=== PATIENT | male | born 1960 | race Caucasian/White ===

== ENCOUNTER 2017-06-19 10:27 | Inpatient (IN) ==
[2017-06-19] MEDS ORDERED: methylPREDNISolone 125 MG/2 ML VIAL IVP ONE (10:36)
--- NOTE | 2017-06-19 11:00 | Emergency Department Note ---
Disposition Clinical Impression: Community acquired pneumonia Qualifiers: Laterality: unspecified laterality Qualified Code(s): J18.9 - Pneumonia, unspecified organism Disposition: Admitted As Inpatient Condition: Fair SOB HPI - General Chief Complaint: ED Shortness of Breath/Dyspnea Stated Complaint: ERWIN Time Seen by Provider: 06/19/17 10:31 Source: patient, family Mode of arrival: private vehicle Limitations: no limitations Nursing Notes Reviewed: Yes Vital Signs Reviewed: Yes - History of Present Illness Pt Subjective Complaint: shortness of breath, cough Onset (ago): month(s) (2) Context: recent illness Severity: moderate, severe Consistency/Duration: other ("The trouble breathing is now much better") Improves with: oxygen Worsens with: lying flat, coughing Known history of: diabetes, other (Quit smoking in February) Associated symptoms: Reports: denies other symptoms, fever, cough, sputum production ("a ton"), orthopnea. Denies: chest pain, pain with inspiration, wheezing, lower extremity pain, polyuria, polydipsia, parasthesias, palpitations , hemoptysis, diaphoresis, nausea/vomiting, syncope, abdominal pain, rash, sense of impending doom Treatment prior to arrival: other (ABX - two different types; each for 10 days, no change in symptoms) Cough present: Yes Cough Description: Voluntary, Involuntary, Productive, Hacking, Bronchospastic, Hoarse Cough Frequency: Persistent Sputum production: Yes Sputum Amount: Copious Sputum Color: Yellow, Brown - Related Data Home oxygen amount: none Allergies Allergy/AdvReac Type Severity Reaction Status Date / Time No Known Allergies Allergy Verified 06/19/17 11:04 All systems ED: reviewed and negative except as stated. Review of Systems: As Per HPI Constitutional: Reports: fever. Denies: chills, weakness, weight change, night sweats Eyes: Denies: eye pain, eye discharge, vision change, other ENT ED: Denies: ear pain, throat pain, congestion, dysphagia Cardiovascular: Reports: dyspnea on exertion, orthopnea. Denies: chest pain, palpitations, edema, syncope Respiratory: Reports: as per HPI, cough, dyspnea, sputum production. Denies: wheezes, hemoptysis, stridor Gastrointestinal: Denies: abdominal pain, nausea, vomiting, diarrhea Genitourinary: Denies: dysuria Musculoskeletal: Denies: back pain, neck pain, joint swelling, arthralgia, myalgia Neurological: Reports: paresthesias ('Burning pain in feet" (Chronic)). Denies : headache, weakness, numbness Psychiatric: Reports: anxiety ("Just today when I couldn't catch my breath") Endocrine: Reports: fatigue Hematological/Lymphatic: Denies: easy bleeding, easy bruising, lymphadenopathy Allergic/Immunologic: Denies: facial swelling, urticaria, itchy eyes Past Medical History - Past Medical History Attestation: Yes The following information was validated with the patient. Source: patient, obtained from family Medical history: Reports: diabetes, hypertension Surgical history: Reports: non-contributory - Social History Smoking Status: Former smoker Alcohol use: Reports: none (Quit in February) Drug use: Reports: none Physical Exam - General Limitations: no limitations General appearance: alert, in no apparent distress, anxious - Head Head exam: atraumatic, normocephalic, normal inspection - Eye Eye exam: Present: normal appearance, PERRL. Absent: scleral icterus, conjunctival injection, periorbital swelling - ENT ENT exam: normal exam, mucous membranes moist - Neck Neck exam: Present: normal inspection, full ROM, trachea midline. Absent: tenderness, meningismus - Chest Chest inspection: Present: normal inspection, symmetric chest wall rise. Absent : tenderness - Respiratory Respiratory exam: Present: normal lung sounds bilaterally. Absent: respiratory distress, wheezes, stridor, accessory muscle use, prolonged expiratory phase - Cardiovascular Cardiovascular exam: Present: normal rhythm, tachycardia, normal heart sounds. Absent: systolic murmur, diastolic murmur - Abdominal Exam Abdominal exam: Present: soft, Non-Tender. Absent: distention, guarding, rebound, mass, bruit, pulsatile mass - Extremities Exam Extremities exam: Present: normal inspection, normal capillary refill. Absent: pedal edema - Back Exam Back exam: Present: normal inspection - Neurological Exam Neurological exam: Present: alert, oriented X3, CN II-XII intact, normal gait. Absent: motor sensory deficit - Psychiatric Psychiatric exam: Present: normal affect, normal mood - Skin Skin exam: Present: warm, dry, intact, normal color Course Course Narrative: Patient presents for evaluation of an acute onset of dyspnea while having a coughing spell this morning. He states that he has had a cough with copious amounts of sputum production episodic shortness of breath with exertion, intermittent fever and chills for about two months. This morning he had a coughing spell and felt like he could not stop coughing and could not catch his breath. This is what prompted his visit to the ER. He has been seen by his primary care provider twice for this. He was put on antibiotics twice. Each was a 10 day course of a different antibiotic. He has had no improvement. He is afebrile, tachypneic and tachycardic. He is satting 100% on oxygen. He is currently on nonrebreather and most likely can be weaned to nasal cannula. However, he states that he is too anxious to try that at this point. The monitor shows sinus tachycardia, rate of 139. IV access was obtained. IV fluids and Tylenol have been ordered for the fever. Labs, EKG and x-rays have been ordered. Case was discussed with Dr. Abraham. As it is shift change, he will take over care of this patient.
[2017-06-19] MEDS ORDERED: 0.9 % Sodium Chloride 1,000 ML IVC ONE ×2 (11:12→13:45)
[2017-06-19 11:25] LABS: Hematocrit 29.7 % (37.5-50.1); Mean Corpuscular HGB Conc 30.3 g/dL (31.6-35.5); Mean Corpuscular Hemoglobin 26.5 pg (28.0-33.3); Mean Corpuscular Volume 87.4 fL (83.0-100.0); Mean Platelet Volume 8.3 fL (9.4-12.4); Platelet Count 610 K/mcL (140-400); Red Cell Distribution Width 17.1 % (11.5-14.5)
[2017-06-19 11:28] LABS: INR 1.2; Prothrombin Time 13.3 Seconds (9.4-12.1)
[2017-06-19 11:31] LABS: Activated Partial Thrombo Time 24.5 Seconds (26.0-36.0)
[2017-06-19] MEDS ORDERED: Ipratropium/Albuterol Neb 3 ML ONE (11:33)
[2017-06-19] MEDS ORDERED: Ipratropium/Albuterol Neb 3 ML IH ONE (11:34)
[2017-06-19] MEDS ORDERED: Albuterol 2.5 MG/3 ML NEBULIZER IH ONE (11:34)
[2017-06-19] MEDS ORDERED: Isovue-370 500 ML INFUS..BTL IV ONE (11:35)
[2017-06-19 11:44] LABS: Alanine Aminotransferase 13 Units/L (7-52); Albumin 2.9 g/dL (3.5-5.7); Albumin/Globulin Ratio 0.5 (1.1-2.2); Alkaline Phosphatase 75 Units/L (34-104); Aspartate Amino Transferase 17 Units/L (13-39); BUN/Creatinine Ratio 28 (6-26); Bilirubin,Indirect 0.3 mg/dL (0.0-1.2); Bilirubin,Total 0.3 mg/dL (0.3-1.0); Blood Urea Nitrogen 14 mg/dL (6-20); Calcium 9.2 mg/dL (8.6-10.3); Carbon Dioxide 23 mEq/L (23-29); Chloride 96 mEq/L (98-107); Globulin 5.8 g/dL (2.4-3.5); Glucose 204 mg/dL (70-105); Osmolality,Calculated 278 (280-300); Potassium 4.8 mEq/L (3.5-5.1); Sodium 131 mEq/L (136-145); Total Protein 8.7 g/dL (6.4-8.9); eGFR For African Americans > 60 (> 60); eGFR For Non-African Americans > 60 (> 60)
[2017-06-19 12:08] LABS: Eosinophils # 0.2 K/mcL (0.0-0.6); Lymphocytes # 2.3 K/mcL (0.6-4.6); Monocytes # 0.8 K/mcL (0.0-1.3); Neutrophils # 4.4 K/mcL (1.6-8.9)
[2017-06-19] MEDS ORDERED: Azithromycin 500 MG in D5% in Water 250 ML IVPB STA (12:08)
[2017-06-19] MEDS ORDERED: cefTRIAXone 1,000 MG in Water for inj. (sterile) 20 ML 10 ML IVP ONE (12:08)
[2017-06-19 12:09] LABS: Anisocytosis 1+ (Not Present); Platelet Estimate Increased (Normal)
[2017-06-19] MEDS ORDERED: Azithromycin 500 MG in 0.9 % Sodium Chloride 250 ML IVPB STA (13:07)
--- NOTE | 2017-06-19 13:39 | Emergency Department Note ---
Disposition Clinical Impression: Empyema, Hydropneumothorax Disposition: Admitted As Inpatient Condition: Fair General Adult HPI - General Chief complaint: ED Shortness of Breath/Dyspnea Stated complaint: ERWIN Time Seen by Provider: 06/19/17 10:31 Source: patient, family Mode of arrival: private vehicle Limitations: no limitations Nursing Notes Reviewed: Yes Vital Signs Reviewed: Yes - History of Present Illness Pain Scale: 0 - Related Data Home Medications Medication Instructions Recorded Confirmed Aspirin [Lo-Dose Aspirin EC] 81 mg PO DAILY 06/19/17 06/19/17 Lisinopril [Zestril] 40 mg PO DAILY 06/19/17 06/19/17 Metformin HCl [Glucophage] 1,000 mg PO DAILY 06/19/17 06/19/17 Naproxen Sodium [Aleve] 440 mg PO DAILY PRN 06/19/17 06/19/17 Simvastatin [Zocor] 20 mg PO DAILY 06/19/17 06/19/17 Allergies Allergy/AdvReac Type Severity Reaction Status Date / Time No Known Allergies Allergy Verified 06/19/17 15:03 Constitutional: Reports: fever. Denies: chills, weakness, weight change, night sweats Eyes: Denies: eye pain, eye discharge, vision change, other ENT ED: Denies: ear pain, throat pain, congestion, dysphagia Cardiovascular: Reports: dyspnea on exertion, orthopnea. Denies: chest pain, palpitations, edema, syncope Respiratory: Reports: as per HPI, cough, dyspnea, sputum production. Denies: wheezes, hemoptysis, stridor Gastrointestinal: Denies: abdominal pain, nausea, vomiting, diarrhea Genitourinary: Denies: dysuria Musculoskeletal: Denies: back pain, neck pain, joint swelling, arthralgia, myalgia Neurological: Reports: paresthesias ('Burning pain in feet" (Chronic)). Denies : headache, weakness, numbness Psychiatric: Reports: anxiety ("Just today when I couldn't catch my breath") Endocrine: Reports: fatigue Hematological/Lymphatic: Denies: easy bleeding, easy bruising, lymphadenopathy Allergic/Immunologic: Denies: facial swelling, urticaria, itchy eyes Past Medical History - Past Medical History Medical history: Reports: diabetes, hypertension Surgical history: Reports: non-contributory Psychiatric history: Reports: no psych history - Social History Smoking Status: Former smoker Smokeless Tobacco Status: No Alcohol use: Reports: none (Quit in February) Drug use: Reports: none Physical Exam - General Limitations: no limitations General appearance: alert, in no apparent distress, anxious Course Vital Signs Temperature 101.2 F H 06/19/17 10:33 Pulse Rate 154 06/19/17 10:33 Respiratory Rate 20 06/19/17 10:33 Blood Pressure 147/89 06/19/17 10:33 O2 Sat by Pulse Oximetry 100 06/19/17 10:33 Temperature 97.2 F L 06/19/17 16:18 Pulse Rate 113 06/19/17 16:18 Respiratory Rate 18 06/19/17 16:23 Blood Pressure 149/79 06/19/17 16:18 O2 Sat by Pulse Oximetry 93 06/19/17 16:23 Oxygen Delivery Oxygen Delivery Nasal Cannula Medical Decision Making - MDM Narrative Medical decision making narrative: I, Yoni Abraham, examined this patient and my medical decision-making was reviewed with the CATALOGUE CLERK/PA/Advanced Practice Nurse/Resident Physician. I agree with the documented findings, disposition and treatment plan as described except to the extent set forth below. 57-year-old male received in sign out at the start of my shift pending evaluation of difficulty in breathing. Patient states he has had difficulty in breathing over the 2-3 weeks and has taken 2 courses of outpatient antibiotics without improvement of his symptoms. Patient has a cough that is productive of brown sputum. Denies syncopal episode, chest pain, diarrhea, vomiting. Denies hematochezia, melena, coffee-ground emesis. Had an elevated d-dimer. CTA of the chest showed a hydropneumothorax which is likely an empyema given his fever he also had evidence of pneumonia and possible necrotizing pneumonia. Patient is also anemic compared to his previous labs and this fluid collection along may also contain blood. Patient denies recent trauma. No changes in medications does not take blood thinning medications. Patient does have a significant history of diabetes and hypertension. He has a long history of alcohol and tobacco abuse and stopped using these for months ago. I discussed the results of the CTA of the chest with the cardiothoracic surgeon, Dr. Turner, who recommended patient would be able to be admitted to the hospital at [facility] where he would consult for further care. Patient given antibiotics in the emergency department. Initially he was given ceftriaxone and azithromycin as empiric antibiotics for community-acquired pneumonia however Zosyn and vancomycin were ordered after learning about presence of empyema. Patient admitted to hospitalist to stepdown unit. Blood pressure and tachycardia improved with IV fluids and antibiotics. Patient satting well on 2 L of O2 prior to admission. - Medical Records Medical records reviewed: Yes I reviewed the patient's medical records. - Lab Data Lab results reviewed: Yes I reviewed the patient's lab results. Result diagrams: 06/19/17 11:04 06/19/17 11:04 Lab Results 06/19/17 06/19/17 06/19/17 Range/Units 11:04 11:04 11:04 WBC 7.6 (4.3-11.1) K/mcL RBC 3.40 L (4.19-5.50) M/mcL Hgb 9.0 L (12.9-16.9) g/dL Hct 29.7 L (37.5-50.1) % MCV 87.4 (83.0-100.0) fL MCH 26.5 L (28.0-33.3) pg MCHC 30.3 L (31.6-35.5) g/dL RDW 17.1 H (11.5-14.5) % Plt Count 610 H (140-400) K/mcL MPV 8.3 L (9.4-12.4) fL Immature Gran % Test Not Performed Seg Neutrophils % 18.0 % Band Neutrophils % 40.0 H (0-4) % Lymphocytes % 30.0 % Monocytes % 10.0 % Eosinophils % 2.0 % Basophils % Test Not Performed Neutrophils # 4.4 (1.6-8.9) K/mcL Lymphocytes # 2.3 (0.6-4.6) K/mcL Monocytes # 0.8 (0.0-1.3) K/mcL Eosinophils # 0.2 (0.0-0.6) K/mcL Basophils # Test Not Performed Platelet Estimate Increased H (Normal) Anisocytosis 1+ A (Not Present) PT 13.3 H (9.4-12.1) Seconds INR 1.2 APTT 24.5 L (26.0-36.0) Seconds D-Dimer 2191 H (0-500) ng/mLFEU Sodium 131 L (136-145) mEq/L Potassium 4.8 (3.5-5.1) mEq/L Chloride 96 L (98-107) mEq/L Carbon Dioxide 23 (23-29) mEq/L BUN 14 (6-20) mg/dL Creatinine 0.50 L (0.70-1.30) mg/dL Est GFR ( Amer) > 60 (> 60) Est GFR (Non-Af Amer) > 60 (> 60) BUN/Creatinine Ratio 28 H (6-26) Glucose 204 H (70-105) mg/dL Calculated Osmolality 278 L (280-300) Lactic Acid (0.5-2.2) mmol/L Calcium 9.2 (8.6-10.3) mg/dL Total Bilirubin 0.3 (0.3-1.0) mg/dL Direct Bilirubin 0.0 (0.0-0.2) mg/dL Indirect Bilirubin 0.3 (0.0-1.2) mg/dL AST 17 (13-39) Units/L ALT 13 (7-52) Units/L Alkaline Phosphatase 75 (34-104) Units/L Troponin I 0.30 H* (< 0.04) ng/mL B-Natriuretic Peptide (Less than 100) pg/mL Serum Total Protein 8.7 (6.4-8.9) g/dL Albumin 2.9 L (3.5-5.7) g/dL Globulin 5.8 H (2.4-3.5) g/dL Albumin/Globulin Ratio 0.5 L (1.1-2.2) 06/19/17 06/19/17 06/19/17 Range/Units 11:04 11:04 12:40 WBC (4.3-11.1) K/mcL RBC (4.19-5.50) M/mcL Hgb (12.9-16.9) g/dL Hct (37.5-50.1) % MCV (83.0-100.0) fL MCH (28.0-33.3) pg MCHC (31.6-35.5) g/dL RDW (11.5-14.5) % Plt Count (140-400) K/mcL MPV (9.4-12.4) fL Immature Gran % Seg Neutrophils % % Band Neutrophils % (0-4) % Lymphocytes % % Monocytes % % Eosinophils % % Basophils % Neutrophils # (1.6-8.9) K/mcL Lymphocytes # (0.6-4.6) K/mcL Monocytes # (0.0-1.3) K/mcL Eosinophils # (0.0-0.6) K/mcL Basophils # Platelet Estimate (Normal) Anisocytosis (Not Present) PT (9.4-12.1) Seconds INR APTT (26.0-36.0) Seconds D-Dimer (0-500) ng/mLFEU Sodium (136-145) mEq/L Potassium (3.5-5.1) mEq/L Chloride (98-107) mEq/L Carbon Dioxide (23-29) mEq/L BUN (6-20) mg/dL Creatinine (0.70-1.30) mg/dL Est GFR ( Amer) (> 60) Est GFR (Non-Af Amer) (> 60) BUN/Creatinine Ratio (6-26) Glucose (70-105) mg/dL Calculated Osmolality (280-300) Lactic Acid 2.6 H 1.9 (0.5-2.2) mmol/L Calcium (8.6-10.3) mg/dL Total Bilirubin (0.3-1.0) mg/dL Direct Bilirubin (0.0-0.2) mg/dL Indirect Bilirubin (0.0-1.2) mg/dL AST (13-39) Units/L ALT (7-52) Units/L Alkaline Phosphatase (34-104) Units/L Troponin I (< 0.04) ng/mL B-Natriuretic Peptide 84 (Less than 100) pg/mL Serum Total Protein (6.4-8.9) g/dL Albumin (3.5-5.7) g/dL Globulin (2.4-3.5) g/dL Albumin/Globulin Ratio (1.1-2.2) 06/19/17 Range/Units 14:46 WBC (4.3-11.1) K/mcL RBC (4.19-5.50) M/mcL Hgb (12.9-16.9) g/dL Hct (37.5-50.1) % MCV (83.0-100.0) fL MCH (28.0-33.3) pg MCHC (31.6-35.5) g/dL RDW (11.5-14.5) % Plt Count (140-400) K/mcL MPV (9.4-12.4) fL Immature Gran % Seg Neutrophils % % Band Neutrophils % (0-4) % Lymphocytes % % Monocytes % % Eosinophils % % Basophils % Neutrophils # (1.6-8.9) K/mcL Lymphocytes # (0.6-4.6) K/mcL Monocytes # (0.0-1.3) K/mcL Eosinophils # (0.0-0.6) K/mcL Basophils # Platelet Estimate (Normal) Anisocytosis (Not Present) PT (9.4-12.1) Seconds INR APTT (26.0-36.0) Seconds D-Dimer (0-500) ng/mLFEU Sodium (136-145) mEq/L Potassium (3.5-5.1) mEq/L Chloride (98-107) mEq/L Carbon Dioxide (23-29) mEq/L BUN (6-20) mg/dL Creatinine (0.70-1.30) mg/dL Est GFR ( Amer) (> 60) Est GFR (Non-Af Amer) (> 60) BUN/Creatinine Ratio (6-26) Glucose (70-105) mg/dL Calculated Osmolality (280-300) Lactic Acid 2.3 H (0.5-2.2) mmol/L Calcium (8.6-10.3) mg/dL Total Bilirubin (0.3-1.0) mg/dL Direct Bilirubin (0.0-0.2) mg/dL Indirect Bilirubin (0.0-1.2) mg/dL AST (13-39) Units/L ALT (7-52) Units/L Alkaline Phosphatase (34-104) Units/L Troponin I (< 0.04) ng/mL B-Natriuretic Peptide (Less than 100) pg/mL Serum Total Protein (6.4-8.9) g/dL Albumin (3.5-5.7) g/dL Globulin (2.4-3.5) g/dL Albumin/Globulin Ratio (1.1-2.2) - Radiology Data Radiology results reviewed: Yes I reviewed the patient's radiology results.
[2017-06-19] MEDS ORDERED: Piperacillin/Tazobactam 3.375 GM in D5% in Water (Mini-Bag+) 100 ML IVPB ONE (14:48)
[2017-06-19] MEDS ORDERED: Vancomycin 1,500 MG in D5% in Water 250 ML IVPB STA (14:48)
[2017-06-19] MEDS ORDERED: Piperacillin/Tazobactam 3.375 GM in 0.9 % Sodium Chloride Mini Bag 100 ML IVPB ONE (15:15)
[2017-06-19] MEDS ORDERED: Naloxone 0.4 MG/ML INJ IVP PRN (16:05)
--- NOTE | 2017-06-19 16:16 | Internal Med History&Physical ---
Date of Encounter: 06/20/17 Time of Encounter: 16:15 Internal Medicine - H&P: HPI Chief complaint: shortness of breath Admitted From: Emergency Dept Plans for Post Hospital Care: Home History of present illness: Mr. Chaudhry is a 57 year old male Medical history of diabetes, hypertension, dyslipidemia,. Patient came to emergency department early in the morning for worsening shortness of breath which is ongoing for last 2 months. Patient claims that this morning it was very difficult for him to lay down in that was the reason he was more concerned about his ongoing shortness of breath. Patient was evaluated by his primary care physician few weeks back and at that time he was given antibiotics course. Patient claims that those antibiotics helped him a little bit but did not cure her short of breath. In view of the persistent recurrent shortness of breath which is worse in the last night in terms of patient was not able to lay down flat, patient decided to come to emergency department for further evaluation. Patient denies abdominal pain, nausea, vomiting, dizziness and diarrhea. Workup in the emergency room: Patient was evaluated in the emergency room. Baseline labs were drawn. Noted that patient's hemoglobin was 9. Patient underwent chest x-ray. Which shows possibility of a dense consolidation. Patient underwent CTA of the chest. That shows a hydropneumothorax. Cardiothoracic surgery was consult it from emergency room. Reason for admission: right hydropneumothorax to rule out underlying malignancy. Family history: Noncontributory Past Med Surg Social Fam HX - Past Medical History Medical history: diabetes, hypertension Psychiatric history: no psych history - Past Surgical History Surgical History: non-contributory - Social History Smoking Status: Former smoker Smokeless Tobacco Status: No Alcohol use: none (Quit in February) Drug use: none Internal Medicine - H&P: Meds Aspirin [Lo-Dose Aspirin EC] 81 mg PO DAILY 06/19/17 [History] Lisinopril [Zestril] 40 mg PO DAILY 06/19/17 [History] Metformin HCl [Glucophage] 1,000 mg PO DAILY 06/19/17 [History] Naproxen Sodium [Aleve] 440 mg PO DAILY PRN 06/19/17 [History] Simvastatin [Zocor] 20 mg PO DAILY 06/19/17 [History] 3 Allergy/AdvReac Type Severity Reaction Status Date / Time No Known Allergies Allergy Verified 06/19/17 15:03 All Systems PM: A 10-system review of systems was performed and is negative for pertinent findings except as documented above in the HPI. - Constitutional Constitutional: no chills, no fever(s), no night sweats - EENT Eyes: no change in vision, no discharge, no pain, no photophobia Ears: no ear discharge, no ear pain, no tinnitus Nose, mouth and throat: no dysphagia, no nasal discharge, no neck pain, no sore throat - Cardiovascular Cardiovascular ROS IM: chest pain, no diaphoresis, no dyspnea, no lightheadedness, no palpitations, no syncope - Respiratory Respiratory: wheezing, no cough, no dyspnea, no excessive phlegm production - Gastrointestinal Gastrointestinal: no abdominal pain, no diarrhea, no hematemesis, no hematochezia, no melena, no nausea, no vomiting - Musculoskeletal Musculoskeletal ROS IM: no numbness, no tingling - Integumentary Integumentary IM: no rash, no unusual bruising - Neurological Neurological ROS: no confusion, no convulsions, no focal weakness, no numbness, no tingling, no tremor(s) - Hematologic/Lymphatic Hematologic/Lymphatic: no easy bruising - Constitutional Vitals: Temp Pulse Resp BP Pulse Ox 99.1 F 107 11 127/67 98 06/19/17 14:31 06/19/17 15:31 06/19/17 15:31 06/19/17 15:31 06/19/17 15:31 General appearance: Present: A&O X 3, pleasant, no acute distress, answers questions appropriately - Head Head exam: Present: atraumatic, normocephalic - Eye Eye exam: Present: PERRL, conjuntiva pink, sclera anicteric Pupils: Present: PERRL - Neck Neck exam general surgery: Present: supple, trachea midline. Absent: lymphadenopathy - Respiratory Respiratory exam: Absent: accessory muscle use, rales, rhonchi, wheezes Additional comments: On the right-sided inframammary area/infra-axillary area/interscapular area: Absent breath sounds. Succussion splash present. Patient does have a bronchial breathing in above mentioned area. No palpable lymphadenopathy noted - Cardiovascular Cardiovascular exam: Present: RRR, +S1, +S2. Absent: diastolic murmur, gallop, rubs, systolic murmur - GI/Abdominal GI/Abdominal exam: Present: normal bowel sounds, soft, no peritoneal signs. Absent: distended, tenderness - Extremities Exam Extremities exam: Present: warm, radial pulses palpable and symmetrical. Absent : calf tenderness, cyanotic, pedal edema - Neurological Exam Neurological exam: Present: CN II-XII intact, oriented X3, no focal deficits. Absent: pronater drift, facial droop, speech deficit - Skin Skin exam: Present: dry, intact Internal Med - H&P Results - Labs CBC & Chem 7: 06/20/17 04:11 06/20/17 04:11 - Assessment and plan (1) Hydropneumothorax Current Visit: Yes Status: Acute Assessment and plan: 57/male Background history of for comorbid conditions. Admitted with worsening shortness of breath over 22 months. Hemoglobin: 9. CTA chest: Right sided hydropneumothorax. I personally feel this is a hemopneumothorax. Plan: Admit as inpatient. Empric antibiotics. CTS consult placed by ER. Possible Chest tube tomorrow will keep NPO from Midnight. I examined this patient in the emergency department room #16. Patient's family at bedside. Plan of care explained to the patient and family. The verbalize understanding. (2) Empyema Current Visit: Yes Status: Acute Assessment and plan: See above (3) DM (diabetes mellitus) Current Visit: Yes Status: Acute Assessment and plan: Resume home medication We will monitor patient's blood glucose Qualifiers: Diabetes mellitus type: type 2 Diabetes mellitus termination clerk insulin use: unspecified fci insulin use status Diabetes mellitus complication status : with other specified complication Qualified Code(s): E11.69 - Type 2 diabetes mellitus with other specified complication (4) Hypertension Current Visit: Yes Status: Acute Assessment and plan: We will resume home medications for hypertension. we will monitor patient's blood pressure very closely. Qualifiers: Hypertension type: essential hypertension Qualified Code(s): I10 - Essential (primary) hypertension (5) DVT prophylaxis Current Visit: Yes Status: Acute Assessment and plan: Antiembolic stockings provided Medical decision making: This patient has a moderate to severe risk of worsening in spite of being on appropriate medication due to the underlying complex comorbid conditions. - Time Spent With Patient Total time spent is greater than 50% in coordination of care (as documented) at patient's floor/unit and/or counseling patient:
[2017-06-19] MEDS ORDERED: Levofloxacin 750 MG/150 ML 750 MG/150 ML BAG IVPB SCH (17:00)
[2017-06-19] MEDS: 0.9 % Sodium Chloride 1,000 ML IVC SCH (17:32)
[2017-06-19] MEDS ORDERED: *HR* LORazepam 2 MG/ML VIAL IVP ONE ×2 (18:04→23:11)
[2017-06-19] MEDS ORDERED: Insulin LISPRO 300 UNITS/3 ML VIAL SQ SCH (21:00)
--- NOTE | 2017-06-19 21:43 | Cardiothoracic Consult Note ---
Date of Encounter: 06/19/17 Time of Encounter: 21:39 Assessment and Plan (1) Empyema Current Visit: Yes Status: Acute The patient is a 57-year-old type II diabetic, hypertensive man with hypercholesterolemia who developed a productive cough in February 2017. The patient has had persistent sputum production, and more recently, shortness of breath and dyspnea on exertion. The patient had a severe episode of coughing followed by shortness of breath this morning which prompted his evaluation at [facility] emergency department. He chest x-ray showed a right lower lobe consolidation and a follow-up chest CTA showed complete collapse of the right lower lobe and a right loculated hydropneumothorax. The patient was admitted for IV antibiotics and drainage of the empyema. The patient is tentatively scheduled for a right thoracotomy and decortication in the morning. The assessment and plan as outlined above was discussed with the patient and/or family members who expressed understanding and agreement. All questions were answered. - History of Present Illness Consult date: 06/19/17 Requesting physician: Ever Estes Consult reason: Right pleural empyema Chief complaint: Shortness of breath, dyspnea on exertion History of present illness: Mr. Chaudhry is a 57 year old type II diabetic, hypertensive man who stopped smoking in February 2017. Shortly thereafter, the patient developed a productive cough. He was evaluated by his primary care physician, Dr. Braden Mas, who diagnosed the patient with a pneumonia. He was treated with oral antibiotics on 2 separate occasions. He states that he had temporary improvement respiratory symptoms; however, has had a persistent productive cough producing a yellowish phlegm, night sweats, and fatigue. This morning the patient states that he had a severe episode of coughing followed by profound shortness of breath and was brought to [facility] emergency department by his . A chest x-ray showed right lower lobe consolidation. This was confirmed by a chest CTA which showed a loculated right pleural effusion. The right lower lobe was completely collapsed and the right middle lobe and right upper lobe have partial collapse. The patient was admitted for IV antibiotics and drainage of the empyema. Past Med Surg Social Fam HX - Past Medical History Medical history: coronary artery disease, diabetes, hyperlipidemia, hypertension Psychiatric history: no psych history - Past Surgical History Surgical History: hip replacement (Right THR ), orthopedic, other (right femur rodding, left shoulder arthroscopy, right shoulder arthroscopy) - Social History Smoking Status: Former smoker Smokeless Tobacco Status: No Alcohol use: none (Quit in February) Drug use: none Occupational status: employed Current living situation: Home - Independent Activity Level: Independent ambulation Recent Out of Country Travel Within the Last 8 Weeks: No Exposure or Possible Exposure to Illness During Travel: No Medications and Allergies Aspirin [Lo-Dose Aspirin EC] 81 mg PO DAILY 06/19/17 [History] Lisinopril [Zestril] 40 mg PO DAILY 06/19/17 [History] Metformin HCl [Glucophage] 1,000 mg PO DAILY 06/19/17 [History] Naproxen Sodium [Aleve] 440 mg PO DAILY PRN 06/19/17 [History] Simvastatin [Zocor] 20 mg PO DAILY 06/19/17 [History] 3 Allergy/AdvReac Type Severity Reaction Status Date / Time No Known Allergies Allergy Verified 06/19/17 15:03 All Systems Review: The remainder of the systems were reviewed and are negative Physical Examination Vital Signs, Last 4 Hours Temp Pulse Resp BP Pulse Ox 06/19/17 19:27 98.7 F 130 26 139/81 95 06/19/17 17:40 95 06/19/17 17:39 98 General: Conversant, Other (Mild respiratory distress) HEENT: Atraumatic, Normocephaly, Trachea midline Neck: No JVD, Normal carotid pulses Cardiac: Reg Rate and Rhythm, Normal S1 and S2, No Murmur Lungs: Normal Breath Sounds (Left lung jackson), Decreased breath sounds (Right lung jackson) Neuro: Alert and responsive, No focal deficits noted Vascular: Normal capillary refill Abdomen: Soft, Non-tender Skin: No rashes noted on visualized skin Extremities: No Clubbing, No Cyanosis, No Edema Results 06/19/17 11:04 06/19/17 11:04 Lab Results, Last 24 hours 06/19/17 17:24 Troponin I < 0.03 - Imaging Chest Xray: image reviewed (Normal cardiac size. Right lower lobe consolidation with a loculated right pleural effusion.) Consult Discharge Plan - Plan Referrals: Braden Mas MD [Primary Care Provider] -
[2017-06-19] MEDS: Insulin LISPRO 300 UNITS/3 ML VIAL SQ SCH (22:13)
[2017-06-20] MEDS ORDERED: Piperacillin/Tazobactam 3.375 GM in 0.9 % Sodium Chloride Mini Bag 100 ML IVPB SCH
[2017-06-20 04:31] LABS: Basophils % 0.2 %; Hemoglobin 7.5 g/dL (12.9-16.9); Immature Granulocytes % 0.6 % (0-4); Lymphocytes % 9.9 %; Mean Corpuscular Hemoglobin 26.7 pg (28.0-33.3); Mean Platelet Volume 8.2 fL (9.4-12.4); Monocytes # 1.4 K/mcL (0.0-1.3); Monocytes % 13.8 %; Platelet Count 482 K/mcL (140-400); Red Blood Count 2.81 M/mcL (4.19-5.50); Red Cell Distribution Width 16.8 % (11.5-14.5); Segmented Neutrophils % 75.5 %
[2017-06-20 04:35] LABS: INR 1.2; Prothrombin Time 13.2 Seconds (9.4-12.1)
[2017-06-20 04:36] LABS: Neutrophils # 7.6 K/mcL (1.6-8.9)
[2017-06-20 04:38] LABS: Activated Partial Thrombo Time 24.8 Seconds (26.0-36.0)
[2017-06-20 05:04] LABS: Troponin I < 0.03 ng/mL (< 0.04)
[2017-06-20 05:07] LABS: Alanine Aminotransferase 10 Units/L (7-52); Albumin 2.5 g/dL (3.5-5.7); Albumin/Globulin Ratio 0.5 (1.1-2.2); Alkaline Phosphatase 61 Units/L (34-104); Aspartate Amino Transferase 9 Units/L (13-39); BUN/Creatinine Ratio 27 (6-26); Bilirubin,Total 0.1 mg/dL (0.3-1.0); Blood Urea Nitrogen 12 mg/dL (6-20); Calcium 8.6 mg/dL (8.6-10.3); Carbon Dioxide 21 mEq/L (23-29); Chloride 103 mEq/L (98-107); Chol/HDL Ratio 2.8 (0-4.9); Cholesterol 87 mg/dL (< 200); Globulin 4.6 g/dL (2.4-3.5); Glucose 290 mg/dL (70-105); HDL Cholesterol 31 mg/dL (40-59); LDL Cholesterol,Calculated 43 mg/dL (0-99); Magnesium 1.5 mg/dL (1.6-2.6); Osmolality,Calculated 284 (280-300); Phosphorous 3.2 mg/dL (2.7-4.5); Potassium 4.3 mEq/L (3.5-5.1); Sodium 132 mEq/L (136-145); Total Protein 7.1 g/dL (6.4-8.9); Triglycerides 63 mg/dL (< 150); eGFR For African Americans > 60 (> 60); eGFR For Non-African Americans > 60 (> 60)
[2017-06-20 05:17] LABS: Anisocytosis 1+ (Not Present); Hypochromasia Present (Not Present); Microcytosis Present (Not Present); Reactive Lymphocytes Present (Not Present)
[2017-06-20 05:18] LABS: Platelet Estimate Increased (Normal)
--- NOTE | 2017-06-20 07:11 | Anesthesia Evaluation PreOp ---
Date of Encounter: 06/20/17 Time of Encounter: 08:01 - Past History Planned Operation: right thoractomy with decortication Cardiac History: HTN, Hyperlipidemia Pulmonary History: Former smoker, Other (right hydropneumothorax with empyema) JBOSS ARCHITECT History: Denies Any Significant HX Other Medical History: Diabetes Type II Anesthesia History: No Prior Anesthetic Complications, Past Anesthesia (right ELISE, IM nail right leg, b/l shoulder scopes) Alcohol Use: none (Quit in February) Drug use: none Medications and Allergies Aspirin [Lo-Dose Aspirin EC] 81 mg PO DAILY 06/19/17 [History] Lisinopril [Zestril] 40 mg PO DAILY 06/19/17 [History] Metformin HCl [Glucophage] 1,000 mg PO DAILY 06/19/17 [History] Naproxen Sodium [Aleve] 440 mg PO DAILY PRN 06/19/17 [History] Simvastatin [Zocor] 20 mg PO DAILY 06/19/17 [History] 3 Allergy/AdvReac Type Severity Reaction Status Date / Time No Known Allergies Allergy Verified 06/19/17 15:03 - Meds/Allergy Pre-op Review Medications Reviewed: Yes Allergies Reviewed: Yes Beta Blockers on Current Med List: No Anesthesia Results - Labs 06/20/17 04:11 06/20/17 04:11 Anesthesia Exam Selected Entries 06/20/17 06:34 Temperature 98.3 F Pulse Rate 97 Respiratory Rate 20 Blood Pressure 145/77 O2 Sat by Pulse Oximetry 100 Oxygen Delivery Method Oxymask Weight: 82kg NPO (# of Hours): 8 - HEENT Pupil (Motor): EOMI Mallampati: II Teeth: Normal Oral Opening: Greater than 3 - JBOSS ARCHITECT LOC: Oriented JBOSS ARCHITECT Motor: Normal RUE, Normal LUE, Normal RLE, Normal LLE, Normal Face JBOSS ARCHITECT Sensory: Normal: RUE, LUE, RLE, LLE, Face - Cardiac Rhythm: Regular Murmur: None - Pulmonary Breath Sounds: left Clear, right Rhonchi (decreased BS on right lower) Respiratory Effort: Symmetrical Anesthesia Assess/Plan ASA Score: 3 Modified Midland Scale for Level of Consciousness: Cooperative, oriented, and tranquil Anesthetic Plan: General Monitoring Plan: Standard Monitors, A-Line Recovery Plan: ICU (agrees to GA and a-line and epidural)
[2017-06-20] MEDS ORDERED: Heparin 1,000 UNITS/500 mL 500 ML ONE (07:16)
[2017-06-20] MEDS ORDERED: *HR* Rocuronium Bromide 50 MG/5 ML VIAL ONE ×3 (07:22→10:00)
[2017-06-20] MEDS ORDERED: *HR* PHENYLEPHRINE 1,000 MCG/10 ML SYRINGE IVP ONE ×2 (07:22→09:26)
[2017-06-20] MEDS ORDERED: *HR* Midazolam HCl 5 MG/5 ML VIAL IVP ONE ×2 (07:23→09:51)
[2017-06-20] MEDS ORDERED: *HR* FentaNYL (PF) 250 MCG/5 ML VIAL ONE ×2 (07:24→09:52)
[2017-06-20] MEDS ORDERED: *HR* Propofol 200 MG/20 ML VIAL IVP ONE (07:26)
[2017-06-20] MEDS ORDERED: Lidocaine 2% Syringe 100 MG/5 ML ONE (07:26)
--- NOTE | 2017-06-20 07:43 | Internal Med Progress Note ---
<Jaren Marquez - Last Filed: 06/20/17 08:12> Date of Encounter: 06/20/17 Time of Encounter: 07:30 - Assessment and plan (1) Hydropneumothorax Current Visit: Yes Status: Acute Assessment and plan: Admitted with worsening shortness of breath over 2 months Hemoglobin: 9 CTA chest: Right sided hydropneumothorax with lung collapse and findings suggestive of empyema Possibly a hemopneumothorax given sharp decrease in patient hemoglobin Empric antibiotics with vancomycin, Zosyn, and Levaquin Consider breathing treatments if needed CTS consult placed by ER Patient taken for decortication this morning (2) Empyema Current Visit: Yes Status: Acute Assessment and plan: See above (3) Anemia Current Visit: Yes Status: Acute Assessment and plan: Patient presented with hemoglobin of 9.0 A second admission hemoglobin is 7.5 Previous hemoglobin 11.7 in March 2014 Low MCV with high RDW suggest blood loss vs Fe deficiency Patient type and cross with 2 units PRBCs on hold Transfuse if hemoglobin falls below 7 We will attempt to obtain iron studies prior to any transfusion Qualifiers: Anemia type: unspecified type Qualified Code(s): D64.9 - Anemia, unspecified (4) Hypertension Current Visit: Yes Status: Acute Assessment and plan: We will resume home medications for hypertension we will monitor patient's blood pressure closely Qualifiers: Hypertension type: essential hypertension Qualified Code(s): I10 - Essential (primary) hypertension (5) DM (diabetes mellitus) Current Visit: Yes Status: Acute Assessment and plan: Hold patient home metformin Supposedly started on home insulin dose, current order is for Humalog at night on a sliding scale We will discuss patient insulin following surgery today Consider low-dose insulin sliding scale We will monitor patient's blood glucose Qualifiers: Diabetes mellitus type: type 2 Diabetes mellitus detention insulin use: unspecified detention insulin use status Diabetes mellitus complication status : with other specified complication Qualified Code(s): E11.69 - Type 2 diabetes mellitus with other specified complication (6) DVT prophylaxis Current Visit: Yes Status: Acute Assessment and plan: Antiembolic stockings provided Consider EPCDs following surgery - Time Spent With Patient Total time spent is greater than 50% in coordination of care (as documented) at patient's floor/unit and/or counseling patient: - Subjective Interval history: Patient reports having continued fevers and chills. He reports having cough productive of yellow/brown mucus. He denies having any chest pain, but does report continued shortness of breath. He denies nausea or abdominal pain. - Constitutional Vitals: Temp Pulse Resp BP Pulse Ox 98.3 F 97 20 145/77 100 06/20/17 06:34 06/20/17 06:34 06/20/17 06:34 06/20/17 06:34 06/20/17 06:34 General appearance: Present: A&O X 3, pleasant, no acute distress, answers questions appropriately Exam: General: Cooperative, pleasant, no acute distress, alert and oriented 3, answers questions appropriately HEENT: Normocephalic, atraumatic, Conjunctiva pink, sclera anicteric, oral mucosa moist Respiratory: No accessory muscle usage, wheezing on auscultation R>L Cardiovascular: Tachycardia, regular rhythm, S1 and S2 present, no murmurs/rubs/ gallops/clicks appreciated GI/abdominal: Nondistended, nontender, soft, normal bowel sounds, no peritoneal signs Extremities: No calf tenderness, no pedal edema appreciated, warm Neurological: Alert and oriented 3, no facial droop, no focal deficits Skin: Dry, intact, normal color Internal Medicine: Result - Labs CBC & Chem 7: 06/20/17 04:11 06/20/17 04:11 Labs: Short CBC 06/20/17 Range/Units 04:11 WBC 10.1 (4.3-11.1) K/mcL Hgb 7.5 L D (12.9-16.9) g/dL Hct 25.0 L (37.5-50.1) % Plt Count 482 H (140-400) K/mcL Neutrophils # 7.6 (1.6-8.9) K/mcL BMP 06/20/17 04:11 Sodium 132 L Potassium 4.3 Chloride 103 Carbon Dioxide 21 L BUN 12 Creatinine 0.44 L Glucose 290 H Calcium 8.6 Cardiac Enzymes 06/19/17 06/19/17 06/20/17 Range/Units 17:24 22:54 04:11 Troponin I < 0.03 < 0.03 < 0.03 (< 0.04) ng/mL Liver Function 06/20/17 Range/Units 04:11 Total Bilirubin 0.1 L (0.3-1.0) mg/dL AST 9 L (13-39) Units/L ALT 10 (7-52) Units/L Alkaline Phosphatase 61 (34-104) Units/L Albumin 2.5 L (3.5-5.7) g/dL - ABG Interpretation ABG results: PT/INR, D-dimer PT 13.2 Seconds (9.4-12.1) H 06/20/17 04:11 D-Dimer 2191 ng/mLFEU (0-500) H 06/19/17 11:04 Consult Discharge Plan - Plan Referrals: Braden Mas MD [Primary Care Provider] - <Manuel Villar T - Last Filed: 06/20/17 13:51> Date of Encounter: 06/20/17 - Assessment and plan (1) Empyema Current Visit: Yes Status: Acute (2) Hydropneumothorax Current Visit: Yes Status: Acute (3) DVT prophylaxis Current Visit: Yes Status: Acute (4) Hypertension Current Visit: Yes Status: Acute Qualifiers: Hypertension type: essential hypertension Qualified Code(s): I10 - Essential (primary) hypertension (5) DM (diabetes mellitus) Current Visit: Yes Status: Acute Qualifiers: Diabetes mellitus type: type 2 Diabetes mellitus terminal worker insulin use: unspecified detention insulin use status Diabetes mellitus complication status : with other specified complication Qualified Code(s): E11.69 - Type 2 diabetes mellitus with other specified complication - Time Spent With Patient Total time spent is greater than 50% in coordination of care (as documented) at patient's floor/unit and/or counseling patient: - Constitutional Vitals: Temp Pulse Resp BP Pulse Ox 97.5 F L 112 22 130/60 100 06/20/17 13:17 06/20/17 13:17 06/20/17 13:17 06/20/17 13:17 06/20/17 13:17 Internal Medicine: Result - Labs CBC & Chem 7: 06/20/17 12:32 06/20/17 12:32 Labs: Short CBC 06/20/17 06/20/17 Range/Units 04:11 12:32 WBC 10.1 11.5 H (4.3-11.1) K/mcL Hgb 7.5 L D 7.1 L (12.9-16.9) g/dL Hct 25.0 L 23.2 L (37.5-50.1) % Plt Count 482 H 480 H (140-400) K/mcL Neutrophils # 7.6 (1.6-8.9) K/mcL BMP 06/20/17 06/20/17 04:11 12:32 Sodium 132 L 137 Potassium 4.3 4.8 Chloride 103 107 Carbon Dioxide 21 L 24 BUN 12 12 Creatinine 0.44 L 0.51 L Glucose 290 H 199 H Calcium 8.6 8.2 L Cardiac Enzymes 06/19/17 06/19/17 06/20/17 Range/Units 17:24 22:54 04:11 Troponin I < 0.03 < 0.03 < 0.03 (< 0.04) ng/mL Liver Function 06/20/17 Range/Units 04:11 Total Bilirubin 0.1 L (0.3-1.0) mg/dL AST 9 L (13-39) Units/L ALT 10 (7-52) Units/L Alkaline Phosphatase 61 (34-104) Units/L Albumin 2.5 L (3.5-5.7) g/dL - ABG Interpretation ABG results: ABG ABG pH 7.21 pH Units (7.32-7.45) L 06/20/17 12:32 ABG pCO2 63 mmHg (35-45) H 06/20/17 12:32 ABG pO2 68 mmHg (85-104) L 06/20/17 12:32 ABG O2 Saturation 88 % (95-98) L 06/20/17 12:32 PT/INR, D-dimer PT 13.2 Seconds (9.4-12.1) H 06/20/17 04:11 D-Dimer 2191 ng/mLFEU (0-500) H 06/19/17 11:04 - Impressions Impressions Chest X-Ray 06/20/17 11:10 IMPRESSION: 1. Interval placement of an endotracheal tube, in satisfactory position. 2. No radiographic evidence of an orogastric tube. 3. Interval placement of a right-sided chest tube, overlying the medial mid right lung space, with a small right pneumothorax evident. 4. No significant change in appearance of widespread airspace opacity throughout the right lung, likely a combination of pneumonia and pulmonary edema. 5. New mild interstitial pulmonary edema. 6. Interval development of curvilinear left basilar airspace opacity, likely atelectasis. D/ / 06/20/2017 12:21:43 Percy Borja MD / ciro Interpreting Provider: Percy Borja MD KUB X-Ray 06/20/17 11:11 IMPRESSION: 1. Interval placement of an endotracheal tube, in satisfactory position. 2. No radiographic evidence of an orogastric tube. 3. Interval placement of a right-sided chest tube, overlying the medial mid right lung space, with a small right pneumothorax evident. 4. No significant change in appearance of widespread airspace opacity throughout the right lung, likely a combination of pneumonia and pulmonary edema. 5. New mild interstitial pulmonary edema. 6. Interval development of curvilinear left basilar airspace opacity, likely atelectasis. D/ / 06/20/2017 12:21:43 Percy Borja MD / ciro Interpreting Provider: Percy Borja MD - Attending Attestation I examined this patient and my medical decision-making was reviewed with the Resident Physician on 06/20/17. I agree with the documented findings, disposition and treatment plan as described except to the extent set forth below. 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 He has a PMH of HTN, HLD, and DM. He is seen in the ICU s/p thoracic surgery with tube placement and decortication, he was getting a bronch at time of eval. Pulmonology will take over patients management as he is not mechanically intubated. Rest of details as in the resident physician's documentation
[2017-06-20] MEDS ORDERED: Bupivacaine-MPF 0.25% 10 ML VIAL ONE (08:26)
[2017-06-20] MEDS ORDERED: Ketorolac 15 MG/ML VIAL IVP PRN (08:41)
[2017-06-20] MEDS ORDERED: *HR* HYDROmorphone (PF) 1 MG/ML SYRINGE IVP PRN (08:41)
[2017-06-20] MEDS ORDERED: *HR* Promethazine 25 MG/ML VIAL IVP PRN (08:41)
[2017-06-20] MEDS ORDERED: [UNRECOGNIZED DRUG - OTHER] EP SCH (08:45)
[2017-06-20] MEDS ORDERED: BUPIVACAINE MPF EP SCH (08:45)
[2017-06-20] MEDS ORDERED: MORPHINE SULFATE EP SCH (08:45)
[2017-06-20 08:58] LABS: % Iron Saturation 7 % (20-55); Ferritin 497 ng/ml (20-250); Iron 17 mcg/dL (65-175); Transferrin 167 mg/dL (203-362)
[2017-06-20] MEDS ORDERED: *HR* Nalbuphine 10 MG/ML AMPUL IV PRN (09:00)
[2017-06-20] MEDS ORDERED: Ketorolac 30 MG/ML VIAL IVP ONE (09:00)
[2017-06-20] MEDS ORDERED: *HR* Phenylephrine 10 MG/ML VIAL ONE (09:26)
[2017-06-20] MEDS ORDERED: Albumin Human 5% 25.0 GM/500 ML VIAL ONE (09:32)
[2017-06-20] MEDS ORDERED: Dexamethasone 4 MG/ML VIAL ONE (09:38)
[2017-06-20] MEDS ORDERED: Ondansetron 4 MG/2 ML VIAL ONE (09:38)
[2017-06-20] MEDS ORDERED: Ketorolac 30 MG/ML VIAL ONE (09:39)
--- NOTE | 2017-06-20 10:05 | Anesthesia Procedures ---
Date of Encounter: 06/20/17 Time of Encounter: 08:30 Procedures: Anesthesia - Arterial Line Consent obtained: written consent Time out performed: Yes Sedation: Versed (mg): 3 Sedation: Fentanyl (mcg): 100 Supplemental Oxygen via Nasal Cannula (L/min): 10 (face mask) Size (Gauge): 20 Length (inches): 1 3/4 Technique Used: sterile prep, guide wire technique, direct puncture technique Post-Procedure: line taped into place, dry sterile dressing placed Patient tolerated procedure: well, no complications Complications: none Site: Radial L - Epidural/Spinal Patient ID/Chart reviewed: Yes Patient examined: Yes Supplemental Oxygen: Mask (10 l) Supplemental Oxygen Rate (L/min): 10 Sedation: Versed (mg): 3 Sedation: Fentanyl (mcg): 100 Site Prep: Aseptic Technique, Sterile prep and drape, Povidone-Iodine 1% Patient position: upright Local Anesthetic: Lidocaine 1% Amount of Local Anesthetic used: 3 Touhy Needle Gauge: 18 Loading Dose Administered: Thru Catheter Catheter Secured in Place: Tegaderm Interspace Used: T5-T6 Loss of Resistance (YUE): Yes Blood: No CSF: No Paresthesia: No
[2017-06-20] MEDS ORDERED: Lacri-Lube 3.5 GM TUBE BOTH EYES PRN (11:10)
[2017-06-20] MEDS ORDERED: Ondansetron 4 MG/2 ML VIAL IVP PRN (11:13)
--- NOTE | 2017-06-20 11:28 | Operative Note ---
Date of procedure: 06/20/17 Pre-op diagnosis: Right pleural empyema Post-op diagnosis: same Procedure: 1. Right posterolateral thoracotomy. 2. Right lower lobe decortication. Implants: None. Complications: None. Anesthesia: CHERI Surgeon: Brynn Turner Was there an him assistant present: No Estimated blood loss (cc): 200 Specimen: Right pleural empyema for culture Condition: stable Disposition: ICU Procedure in Detail: INDICATIONS FOR OPERATION: The patient is a 57 year old type II diabetic, hypertensive man who stopped smoking in February 2017. Shortly thereafter, the patient developed a productive cough. He was evaluated by his primary care physician, Dr. Braden Mas, who diagnosed the patient with a pneumonia. He was treated with oral antibiotics on 2 separate occasions. He states that he had temporary improvement respiratory symptoms; however, has had a persistent productive cough producing a yellowish phlegm, night sweats, and fatigue. This morning the patient states that he had a severe episode of coughing followed by profound shortness of breath and was brought to [facility] emergency department by his . A chest x-ray showed right lower lobe consolidation. This was confirmed by a chest CTA which showed a loculated right pleural effusion. The right lower lobe was completely collapsed and the right middle lobe and right upper lobe have partial collapse. The patient was admitted for IV antibiotics and drainage of the empyema. FINDINGS AT OPERATION: Upon intubating the patient and positioning and the left lateral decubitus position, he had drainage of a large amount of copious thick pus from his right mainstem bronchus. This required suction in order to clear the double-lumen endotracheal tube. The patient had thick well-organized adhesions between the right lower lobe and and right middle lobe to the chest wall. This presented difficultly and performing a complete decortication. DESCRIPTION OF OPERATION: After obtaining informed operative consent from patient, he was taken to the operative tumor satisfactory general endotracheal anesthetic was induced. Double-lumen endotracheal tube was inserted as were other appropriate monitoring lines. The patient was then turned and the left lateral decubitus position and this maneuver resulted in drainage of a large amount of copious, thick sputum into the endotracheal tube. The left lung had been isolated with a balloon and the sputum was suctioned from the endotracheal tube. The patient's right lateral chest was then prepped and draped in a sterile fashion. A standard posterior lateral thoracotomy incision was then made through the skin and subcutaneous tissue. The latissimus dorsi muscle group was divided and the serratus anterior muscle group was reflected medially. The sixth intercostal space was identified and opened by dividing the intercostal muscles. The intercostal space did not separate easily, and this was an indication that there was an intense inflammatory response within the right pleural cavity. The right lower lobe was identified and decortication was performed, removing a 5 mm thick pleural peel from the lobe. Pockets of pus were suctioned from the right pleural chest. The pus was sent for culture, including aerobic, anaerobic , fungal, and TB. The parietal pleural peel was resected as well as possible from the chest wall. The right middle lobe could be identified however this was densely adherent to the chest wall. Several attempts to separate the right middle lobe from the chest wall resulted in numerous incision and into the lung parenchyma. The inflammatory response was well organized, consistent with the patient's history stating that the infection had been ongoing for at least 4-5 months. No further decortication could be safely completed at this point. A 32-Polish chest tube was placed posteriorly. The ribs were reapproximated using 0 Vicryl suture and serratus anterior muscle group, latissimus dorsi muscle group and subcutaneous tissues were reapproximated using running Vicryl sutures. Aide were used to reapproximate the skin edges. Sterile dressings were applied. The patient was transferred to the ICU in satisfactory postoperative condition. There were no intraoperative complications, and instrument, needle, and sponge count were corrected and of operation.
[2017-06-20] MEDS: FentaNYL (PF) 1,000 MCG in 0.9 % Sodium Chloride 80 ML IVC SCH ×2 (11:50→17:28)
--- NOTE | 2017-06-20 12:00 | Pulmonology Consult Note ---
<Madhu Guerra - Last Filed: 06/20/17 12:59> Date of Encounter: 06/20/17 Time of Encounter: 12:00 Assessment and Plan (1) Acute respiratory failure with hypoxia Current Visit: Yes Status: Acute Patient presented with chronic dyspnea with increasing sputum production. Patient was seen in the ER and was diagnosed with empyema and concerns for necrotizing pneumonia. Patient was admitted to the hospitalist service with cardiothoracic surgery consult. Patient is postop from a right posterior lateral thoracotomy with a right lower lobe decortication. Patient remained intubated following the operation. PLAN -Maintain mechanical ventilation with lung protective strategy. -Bronchoscopy performed at bedside with BAL pending. -Continue broad-spectrum antibiotics. Vancomycin DAY 2 and meropenem DAY 1 -No attempts at extubation following the operating room given the patient's extensive pneumonia -Hx smoking. Will add duonebs q6h scheduled. (2) Hydropneumothorax Current Visit: Yes Status: Acute CTA chest: Right sided hydropneumothorax. Postop day 0 from a right posterior lateral thoracotomy with right lower lobe decortication. Cardiothoracic surgery following. Appreciate recommendations. Chest [address] management deferred to cardiothoracic surgery. 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 Will repeat Hgb following surgery. Previous hemoglobin 11.7 in March 2014 Patient type and cross with 2 units PRBCs on hold Transfuse if hemoglobin falls below 7 We will attempt to obtain iron studies prior to any transfusion Qualifiers: Anemia type: unspecified type Qualified Code(s): D64.9 - Anemia, unspecified (6) Hypertension Current Visit: Yes Status: Acute hx of hypertension we will monitor patient's blood pressure closely. Currently on sedation with propofol. Qualifiers: Hypertension type: essential hypertension Qualified Code(s): I10 - Essential (primary) hypertension (7) DVT prophylaxis Current Visit: Yes Status: Acute EPCDs History of Present Illness Consult date: 06/20/17 Requesting physician: Brynn Turner Reason for consult: pneumonia, other (Ventilator management) Chief complaint: Shortness of breath History of present illness: 57-year-old male with a prior smoking history presented to to the emergency department with complaints of shortness of breath for the past 2-3 weeks. Patient is not able to provide history given his current status. Family at bedside states the patient has been dealing with chronic dyspnea for months. States that the patient has completed 2 courses of antibiotics. No chest imaging obtained. Patient's been having a productive sputum. Patient has not required oxygen at home. Past Med Surg Social Fam HX - Past Medical History Medical history: diabetes, hypertension Psychiatric history: no psych history - Past Surgical History Surgical History: non-contributory - Social History Smoking Status: Former smoker Smokeless Tobacco Status: No Alcohol use: none (Quit in February) Drug use: none Medications and Allergies Aspirin [Lo-Dose Aspirin EC] 81 mg PO DAILY 06/19/17 [History] Lisinopril [Zestril] 40 mg PO DAILY 06/19/17 [History] Metformin HCl [Glucophage] 1,000 mg PO DAILY 06/19/17 [History] Naproxen Sodium [Aleve] 440 mg PO DAILY PRN 06/19/17 [History] Simvastatin [Zocor] 20 mg PO DAILY 06/19/17 [History] 3 Allergy/AdvReac Type Severity Reaction Status Date / Time No Known Allergies Allergy Verified 06/19/17 15:03 ROS unobtainable: due to endotracheal tube All Systems: The remainder of the systems were reviewed and are negative Physical Examination General appearance: other (Intubated and sedated) Eyes: nonicteric ENT: other (ET tube in place) Neck: supple Effort: other (Mechanical breath sounds) Inspection: normal, other (Right sided chest tube placed to suction.) Cardiovascular: regular rate and rhythm Gastrointestinal: normoactive bowel sounds, non-distended Integumentary: normal Extremities: no cyanosis Musculoskeletal: no deformities unable to assess due to mental status Results - Laboratory Findings CBC and BMP: 06/20/17 04:11 06/20/17 04:11 PT/INR, D-dimer PT 13.2 Seconds (9.4-12.1) H 06/20/17 04:11 D-Dimer 2191 ng/mLFEU (0-500) H 06/19/17 11:04 Abnormal lab findings: Abnormal lab results RBC 2.81 M/mcL (4.19-5.50) L 06/20/17 04:11 Hgb 7.5 g/dL (12.9-16.9) L D 06/20/17 04:11 Hct 25.0 % (37.5-50.1) L 06/20/17 04:11 MCH 26.7 pg (28.0-33.3) L 06/20/17 04:11 MCHC 30.0 g/dL (31.6-35.5) L 06/20/17 04:11 RDW 16.8 % (11.5-14.5) H 06/20/17 04:11 Plt Count 482 K/mcL (140-400) H 06/20/17 04:11 MPV 8.2 fL (9.4-12.4) L 06/20/17 04:11 Band Neutrophils % 40.0 % (0-4) H 06/19/17 11:04 Monocytes # 1.4 K/mcL (0.0-1.3) H 06/20/17 04:11 Reactive Lymphocytes Present (Not Present) A 06/20/17 04:11 Platelet Estimate Increased (Normal) H 06/20/17 04:11 Hypochromasia Present (Not Present) A 06/20/17 04:11 Anisocytosis 1+ (Not Present) A 06/20/17 04:11 Microcytosis Present (Not Present) A 06/20/17 04:11 PT 13.2 Seconds (9.4-12.1) H 06/20/17 04:11 APTT 24.8 Seconds (26.0-36.0) L 06/20/17 04:11 D-Dimer 2191 ng/mLFEU (0-500) H 06/19/17 11:04 Sodium 132 mEq/L (136-145) L 06/20/17 04:11 Carbon Dioxide 21 mEq/L (23-29) L 06/20/17 04:11 Creatinine 0.44 mg/dL (0.70-1.30) L 06/20/17 04:11 BUN/Creatinine Ratio 27 (6-26) H 06/20/17 04:11 Glucose 290 mg/dL (70-105) H 06/20/17 04:11 POC Glucose 233 mg/dL (70-99) H 06/20/17 11:03 Lactic Acid 2.3 mmol/L (0.5-2.2) H 06/19/17 14:46 Magnesium 1.5 mg/dL (1.6-2.6) L 06/20/17 04:11 Iron 17 mcg/dL (65-175) L 06/20/17 04:11 % Saturation 7 % (20-55) L 06/20/17 04:11 Transferrin 167 mg/dL (203-362) L 06/20/17 04:11 Ferritin 497 ng/ml (20-250) H 06/20/17 04:11 Total Bilirubin 0.1 mg/dL (0.3-1.0) L 06/20/17 04:11 AST 9 Units/L (13-39) L 06/20/17 04:11 B-Natriuretic Peptide 323 pg/mL (Less than 100) H 06/20/17 04:11 Albumin 2.5 g/dL (3.5-5.7) L 06/20/17 04:11 Globulin 4.6 g/dL (2.4-3.5) H 06/20/17 04:11 Albumin/Globulin Ratio 0.5 (1.1-2.2) L 06/20/17 04:11 HDL Cholesterol 31 mg/dL (40-59) L 06/20/17 04:11 - Clinical Findings Intake & Output: Intake & Output 06/19/17 06/20/17 06/20/17 23:59 07:59 15:59 Intake Total 250 / 250 350 / 350 Output Total 1275 / 1275 1280 / 1280 200 / 200 Balance -1025 / -1025 -930 / -930 -200 / -200 Weight 82 kg Consult Discharge Plan - Plan Referrals: Braden Mas MD [Primary Care Provider] - <Christopher Gracia - Last Filed: 06/20/17 22:16> Date of Encounter: 06/20/17 All Systems: The remainder of the systems were reviewed and are negative Physical Examination Vital Signs: Vital Signs, Last 4 Hours Temp Pulse Resp BP Pulse Ox 06/20/17 21:32 22 103/47 100 06/20/17 21:00 102 22 99/47 100 06/20/17 20:08 22 102/48 95 06/20/17 20:00 118 23 106/51 94 06/20/17 19:46 99.1 F 06/20/17 19:00 118 21 120/58 96 06/20/17 18:52 98.6 F 125 27 138/62 96 06/20/17 18:28 124 25 146/60 94 06/20/17 18:06 27 146/62 100 Ventilator Settings Ventilator Settings: Ventilator Settings, Last 8 Hours Ventilator Mode VC+ Ventilator Mode VC+ Ventilator Mode VC+ Ventilator Mode VC+ Ventilator Tidal Volume 500 Setting Ventilator Tidal Volume 500 Setting Ventilator Tidal Volume 500 Setting Ventilator Tidal Volume 500 Setting Ventilator Tidal Volume 500 Setting Ventilator Tidal Volume 500 Setting Ventilator Tidal Volume 500 Setting Ventilator Tidal Volume 500 Setting Ventilator Tidal Volume 500 Setting Ventilator Tidal Volume 500 Setting Ventilator Tidal Volume 500 Setting Ventilator Tidal Volume 450 Setting Ventilator Tidal Volume 450 Setting Ventilator Tidal Volume 450 Setting Ventilator Respiratory Rate 22 Setting Ventilator Respiratory Rate 22 Setting Ventilator Respiratory Rate 22 Setting Ventilator Respiratory Rate 22 Setting Ventilator Respiratory Rate 22 Setting Ventilator Respiratory Rate 22 Setting Ventilator Respiratory Rate 22 Setting Ventilator Respiratory Rate 22 Setting Ventilator Respiratory Rate 22 Setting Ventilator Respiratory Rate 22 Setting Ventilator Respiratory Rate 22 Setting Ventilator Respiratory Rate 22 Setting Ventilator Respiratory Rate 22 Setting Ventilator Respiratory Rate 22 Setting Actual Respiratory Rate 22 Actual Respiratory Rate 22 Actual Respiratory Rate 22 Actual Respiratory Rate 23 Actual Respiratory Rate 21 Actual Respiratory Rate 25 Actual Respiratory Rate 25 Actual Respiratory Rate 27 Actual Respiratory Rate 23 Actual Respiratory Rate 22 Actual Respiratory Rate 22 Actual Respiratory Rate 22 Positive End Expiratory 5 Pressure Positive End Expiratory 5 Pressure Positive End Expiratory 5 Pressure Positive End Expiratory 5 Pressure Positive End Expiratory 5 Pressure Positive End Expiratory 5 Pressure Positive End Expiratory 5 Pressure Positive End Expiratory 5 Pressure Positive End Expiratory 5 Pressure Positive End Expiratory 5 Pressure Positive End Expiratory 5 Pressure Positive End Expiratory 5 Pressure Positive End Expiratory 5 Pressure Peak Inspiratory Airway 28 Pressure Peak Inspiratory Airway 30 Pressure Peak Inspiratory Airway 30 Pressure Peak Inspiratory Airway 31 Pressure Peak Inspiratory Airway 31 Pressure Peak Inspiratory Airway 24 Pressure Peak Inspiratory Airway 27 Pressure Peak Inspiratory Airway 27 Pressure Peak Inspiratory Airway 28 Pressure Peak Inspiratory Airway 34 Pressure Peak Inspiratory Airway 34 Pressure Peak Inspiratory Airway 30 Pressure Results - Laboratory Findings CBC and BMP: 06/20/17 19:40 06/20/17 12:32 ABG ABG pH 7.34 pH Units (7.32-7.45) 06/20/17 20:43 ABG pCO2 42 mmHg (35-45) 06/20/17 20:43 ABG pO2 97 mmHg (85-104) 06/20/17 20:43 ABG O2 Saturation 97 % (95-98) 06/20/17 20:43 PT/INR, D-dimer PT 13.2 Seconds (9.4-12.1) H 06/20/17 04:11 D-Dimer 2191 ng/mLFEU (0-500) H 06/19/17 11:04 Abnormal lab findings: Abnormal lab results WBC 11.5 K/mcL (4.3-11.1) H 06/20/17 12:32 RBC 2.53 M/mcL (4.19-5.50) L 06/20/17 12:32 Hgb 7.5 g/dL (12.9-16.9) L 06/20/17 19:40 Hct 24.1 % (37.5-50.1) L 06/20/17 19:40 MCHC 30.6 g/dL (31.6-35.5) L 06/20/17 12:32 RDW 16.9 % (11.5-14.5) H 06/20/17 12:32 Plt Count 480 K/mcL (140-400) H 06/20/17 12:32 MPV 8.2 fL (9.4-12.4) L 06/20/17 12:32 Band Neutrophils % 60.0 % (0-4) H 06/20/17 12:32 Metamyelocytes % 4.0 % (0) H 06/20/17 12:32 Reactive Lymphocytes Present (Not Present) A 06/20/17 04:11 Platelet Estimate Increased (Normal) H 06/20/17 04:11 Hypochromasia Present (Not Present) A 06/20/17 04:11 Poikilocytosis 1+ (Not Present) A 06/20/17 12:32 Anisocytosis 1+ (Not Present) A 06/20/17 12:32 Microcytosis Present (Not Present) A 06/20/17 04:11 Helmet Cells Present (Not Present) A 06/20/17 12:32 PT 13.2 Seconds (9.4-12.1) H 06/20/17 04:11 APTT 24.8 Seconds (26.0-36.0) L 06/20/17 04:11 D-Dimer 2191 ng/mLFEU (0-500) H 06/19/17 11:04 ABG Base Excess -3 mEq/L (-2 to 3) L 06/20/17 20:43 Creatinine 0.51 mg/dL (0.70-1.30) L 06/20/17 12:32 Glucose 199 mg/dL (70-105) H 06/20/17 12:32 POC Glucose 117 mg/dL (70-99) H 06/20/17 19:49 Calcium 8.2 mg/dL (8.6-10.3) L 06/20/17 12:32 Phosphorus 6.9 mg/dL (2.7-4.5) H 06/20/17 12:32 Magnesium 1.5 mg/dL (1.6-2.6) L 06/20/17 12:32 Iron 17 mcg/dL (65-175) L 06/20/17 04:11 % Saturation 7 % (20-55) L 06/20/17 04:11 Transferrin 167 mg/dL (203-362) L 06/20/17 04:11 Ferritin 497 ng/ml (20-250) H 06/20/17 04:11 Total Bilirubin 0.1 mg/dL (0.3-1.0) L 06/20/17 04:11 AST 9 Units/L (13-39) L 06/20/17 04:11 B-Natriuretic Peptide 323 pg/mL (Less than 100) H 06/20/17 04:11 Albumin 2.5 g/dL (3.5-5.7) L 06/20/17 04:11 Globulin 4.6 g/dL (2.4-3.5) H 06/20/17 04:11 Albumin/Globulin Ratio 0.5 (1.1-2.2) L 06/20/17 04:11 HDL Cholesterol 31 mg/dL (40-59) L 06/20/17 04:11 Fluid Appearance Hazy (Clear) A 06/20/17 11:50 - Microbiology Findings Microbiology Findings: Microbiology, Last 48 Hours 06/20/17 11:12 Body Fluid Culture - Preliminary Other-Specify in Comments 06/20/17 11:50 Gram Stain - Final Right Lower Lobe Lung - Clinical Findings Intake & Output: Intake & Output 06/20/17 06/20/17 06/20/17 07:59 15:59 23:59 Intake Total 600 / 600 2900 / 2900 Output Total 1280 / 1280 200 / 200 1056 / 1056 Balance -680 / -680 -200 / -200 1844 / 1844 Weight 82 kg - Attending Attestation I saw and evaluated this patient and my medical decision-making was reviewed with the Resident Physician. I agree with the documented findings, disposition and treatment plan as described except to the extent set forth below. We independently had [id number] contact with the patient I spent 40 minutes of Critical Care time with this patient. It involved decision making of high complexity to assess, manipulate, and support vital organ system failure and/or to prevent further life threatening deterioration of the patient's condition. The time involved in the performance of separately reportable procedures was not counted toward critical care time. Patient seen and examined at bedside Labs, radiology, chart personally reviewed. Management was reviewed during multidisciplinary critical care rounds. 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 ID consult on Wednesday Heme/Onc:Labs reviewed Endo: Glucose Monitored Integ/MSK: Skin Care per routine ICU Nursing Protocol to prevent ulcers. Lines: All lines examined without evidence of infection : Dispo: Critically ill CODE: Full Code .
[2017-06-20 12:37] LABS: ABG Base Excess -3 mEq/L (-2 to 3); ABG HCO3 25 mEq/L (21-27); ABG Oxygen Saturation 88 % (95-98); ABG PCO2 63 mmHg (35-45); ABG PH 7.21 pH Units (7.32-7.45); ABG PO2 68 mmHg (85-104); ABG TCO2 27 mEq/L (20-26); Blood Gas Modality ASSIST CONTROL; Blood Gas PEEP 5 cm H2O; Blood Gas Respiration Rate 18; Blood Gas VT 450 cc
[2017-06-20 13:00] LABS: Hematocrit 23.2 % (37.5-50.1); Hemoglobin 7.1 g/dL (12.9-16.9); Mean Corpuscular HGB Conc 30.6 g/dL (31.6-35.5); Mean Corpuscular Hemoglobin 28.1 pg (28.0-33.3); Mean Corpuscular Volume 91.7 fL (83.0-100.0); Mean Platelet Volume 8.2 fL (9.4-12.4); Platelet Count 480 K/mcL (140-400); Red Blood Count 2.53 M/mcL (4.19-5.50); Red Cell Distribution Width 16.9 % (11.5-14.5)
[2017-06-20 13:18] LABS: BUN/Creatinine Ratio 24 (6-26); Blood Urea Nitrogen 12 mg/dL (6-20); Calcium 8.2 mg/dL (8.6-10.3); Carbon Dioxide 24 mEq/L (23-29); Chloride 107 mEq/L (98-107); Glucose 199 mg/dL (70-105); Magnesium 1.5 mg/dL (1.6-2.6); Osmolality,Calculated 289 (280-300); Phosphorous 6.9 mg/dL (2.7-4.5); Potassium 4.8 mEq/L (3.5-5.1); Sodium 137 mEq/L (136-145); eGFR For African Americans > 60 (> 60); eGFR For Non-African Americans > 60 (> 60)
[2017-06-20] MEDS: Lisinopril 20 MG TABLET PO SCH (13:21)
[2017-06-20] MEDS: 0.9 % Sodium Chloride 1,000 ML IVC SCH (13:21)
[2017-06-20] MEDS: Aspirin Enteric Coated 81 MG Tablet PO SCH (13:21)
[2017-06-20 13:43] LABS: VBG Ionized Calcium 1.19 mmol/L (1.15-1.35)
[2017-06-20 14:02] LABS: Lymphocytes # 1.8 K/mcL (0.6-4.6); Monocytes # 0.5 K/mcL (0.0-1.3); Neutrophils # 8.7 K/mcL (1.6-8.9)
[2017-06-20 14:03] LABS: Anisocytosis 1+ (Not Present); Helmet Cells Present (Not Present); Poikilocytosis 1+ (Not Present)
[2017-06-20 14:36] LABS: ABG Base Excess -3 mEq/L (-2 to 3); ABG HCO3 24 mEq/L (21-27); ABG Oxygen Saturation 96 % (95-98); ABG PCO2 49 mmHg (35-45); ABG PO2 91 mmHg (85-104); ABG TCO2 25 mEq/L (20-26); Blood Gas Modality ASSIST CONTROL; Blood Gas PEEP 5 cm H2O; Blood Gas Respiration Rate 22; Blood Gas VT 450 cc
[2017-06-20] MEDS ORDERED: 0.9 % Sodium Chloride 1,000 ML IVC ONE ×2 (14:39→15:06)
[2017-06-20] MEDS ORDERED: 0.9 % Sodium Chloride 1,000 ML IVC SCH (14:45)
[2017-06-20] MEDS: Ipratropium/Albuterol Neb 3 ML IH SCH ×2 (15:52→21:30)
[2017-06-20] MEDS: Lacri-Lube 3.5 GM TUBE BOTH EYES SCH ×3 (16:13→19:55)
[2017-06-20] MEDS ORDERED: 0.9 % Sodium Chloride 250 ML ONE (16:16)
[2017-06-20] MEDS: Meropenem 1,000 MG in Water for inj. (sterile) 20 ML 10 ML IVP SCH (16:39)
[2017-06-20] MEDS ORDERED: Dextrose Gel 15 GM/37.5 ML TUBE PO PRN ×2 (16:42)
[2017-06-20] MEDS ORDERED: D5% in Water 1,000 ML IVC PRN (16:42)
[2017-06-20] MEDS ORDERED: *HR* Dextrose 50 % in Water (Syg) 50 ML SYRINGE IVP PRN (16:42)
[2017-06-20 17:07] LABS: Appearance of Body Fluid Hazy (Clear); Volume of Body Fluid 14 mL
[2017-06-20] MEDS: Ringers Solution, Lactated 1,000 ML IVC SCH (17:29)
[2017-06-20] MEDS: Insulin LISPRO 300 UNITS/3 ML VIAL SQ SCH ×2 (18:30→19:56)
[2017-06-20 20:00] LABS: Hematocrit 24.1 % (37.5-50.1); Hemoglobin 7.5 g/dL (12.9-16.9)
[2017-06-20 20:48] LABS: ABG Base Excess -3 mEq/L (-2 to 3); ABG HCO3 22 mEq/L (21-27); ABG Oxygen Saturation 97 % (95-98); ABG PCO2 42 mmHg (35-45); ABG PH 7.34 pH Units (7.32-7.45); ABG PO2 97 mmHg (85-104); ABG TCO2 24 mEq/L (20-26); Blood Gas Modality PRVC; Blood Gas PEEP 5 cm H2O; Blood Gas Respiration Rate 22; Blood Gas VT 500 cc
[2017-06-20] MEDS: Chlorhexidine Rinse 15 ML MOUTHWASH MM SCH (22:39)
[2017-06-21] MEDS: Insulin LISPRO 300 UNITS/3 ML VIAL SQ SCH ×4 (00:03→17:40)
[2017-06-21] MEDS: Ringers Solution, Lactated 1,000 ML IVC SCH ×4 (00:03→16:52)
[2017-06-21] MEDS: Meropenem 1,000 MG in Water for inj. (sterile) 20 ML 10 ML IVP SCH ×2 (00:12→08:33)
[2017-06-21] MEDS: Lacri-Lube 3.5 GM TUBE BOTH EYES SCH ×6 (00:19→20:22)
[2017-06-21] MEDS: Ipratropium/Albuterol Neb 3 ML IH SCH ×4 (03:16→21:47)
[2017-06-21] MEDS: FentaNYL (PF) 1,000 MCG in 0.9 % Sodium Chloride 80 ML IVC SCH ×4 (03:55→22:20)
[2017-06-21 04:23] LABS: Hematocrit 22.9 % (37.5-50.1); Hemoglobin 7.3 g/dL (12.9-16.9); Mean Corpuscular HGB Conc 31.9 g/dL (31.6-35.5); Mean Corpuscular Hemoglobin 28.4 pg (28.0-33.3); Mean Corpuscular Volume 89.1 fL (83.0-100.0); Mean Platelet Volume 8.4 fL (9.4-12.4); Platelet Count 407 K/mcL (140-400); Red Blood Count 2.57 M/mcL (4.19-5.50); Red Cell Distribution Width 16.5 % (11.5-14.5)
[2017-06-21 04:39] LABS: BUN/Creatinine Ratio 29 (6-26); Blood Urea Nitrogen 15 mg/dL (6-20); Calcium 8.3 mg/dL (8.6-10.3); Carbon Dioxide 22 mEq/L (23-29); Chloride 109 mEq/L (98-107); Glucose 166 mg/dL (70-105); Magnesium 1.8 mg/dL (1.6-2.6); Osmolality,Calculated 289 (280-300); Potassium 4.7 mEq/L (3.5-5.1); Sodium 137 mEq/L (136-145); eGFR For African Americans > 60 (> 60); eGFR For Non-African Americans > 60 (> 60)
[2017-06-21 04:46] LABS: Lymphocytes # 4.6 K/mcL (0.6-4.6); Monocytes # 0.9 K/mcL (0.0-1.3); Neutrophils # 9.8 K/mcL (1.6-8.9); Platelet Estimate Normal (Normal)
[2017-06-21 05:45] LABS: ABG Base Excess -2 mEq/L (-2 to 3); ABG HCO3 24 mEq/L (21-27); ABG Oxygen Saturation 96 % (95-98); ABG PCO2 46 mmHg (35-45); ABG PH 7.33 pH Units (7.32-7.45); ABG PO2 89 mmHg (85-104); ABG TCO2 25 mEq/L (20-26); Blood Gas Modality PRVC; Blood Gas PEEP 5 cm H2O; Blood Gas Respiration Rate 22; Blood Gas VT 450 cc
--- NOTE | 2017-06-21 07:46 | Anesthesia Procedures ---
Date of Encounter: 06/21/17 Time of Encounter: 07:47 Procedures: Anesthesia - Epidural Rounding Post Op Day #: 1 Procedure: right thoracotomy, decortication Pain Control: Good Breakthrough Pain Meds: No Vital Signs: Selected Entries 06/21/17 06:00 06/21/17 07:39 Temperature 98.1 F Pulse Rate 99 Respiratory Rate 22 Blood Pressure 122/49 Mental Status: sedated (Patient still intubated and on propofol drip) Catheter Site Dressing Intact: Yes Erythema: No Pruritus: not present (unable to assess) Signs of Infection At Catheter Site: No Plan: Continue current rate
[2017-06-21] MEDS: Lisinopril 20 MG TABLET PO SCH (08:33)
[2017-06-21] MEDS: Aspirin Enteric Coated 81 MG Tablet PO SCH (08:33)
[2017-06-21] MEDS: Chlorhexidine Rinse 15 ML MOUTHWASH MM SCH ×2 (08:33→20:22)
--- NOTE | 2017-06-21 08:35 | Cardiothoracic Progress Note ---
Date of Encounter: 06/21/17 Time of Encounter: 08:33 - Assessment and plan (1) Empyema Current Visit: Yes Status: Acute The patient is recovering well from his right thoracotomy with decortication. He remains intubated; however, is awake and appropriate. He will be evaluated by 'the ICU flooring grader who will manage his extubation. Unfortunately, the right lower lobe appeared to be 'trapped'at the time of surgery and the right hilum was not accessible. 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 The assessment and plan as outlined above was discussed with the patient and/or family members who expressed understanding and agreement. All questions were answered. - Subjective Procedure(s) Performed: POD#1 S/P Right thoracotomy with decortication Interval history: The patient remained hemodynamically stable overnight. He remains intubated; however, is awake and appropriate. He has no complaints. Vital Signs, Last 4 Hours Temp Pulse Resp BP Pulse Ox 06/21/17 07:51 18 140/54 99 06/21/17 07:39 98.1 F 06/21/17 06:44 18 140/54 99 06/21/17 06:00 99 22 122/49 100 06/21/17 05:00 105 22 119/48 100 Oxgyen Flow Rate Oxygen Flow Rate (LPM) [1155] 50 Oxygen Flow Rate (LPM) [1150] 50 Oxygen Flow Rate (LPM) [1145] 50 Oxygen Flow Rate (LPM) 2 Clinical Data, last 8 Hours Output, Chest Tube Drainage 60 Amount [Right Lateral Chest #1 ] Output, Chest Tube Drainage 0 Amount [Right Lateral Chest #1 ] Weight 06/19/17 06/20/17 06/21/17 23:59 23:59 23:59 Weight 77.3 kg - Physical Examination General: No Apparent Distress, Other (Intubated, but awake and appropriate) Neck: No JVD, Normal carotid pulses Cardiac: Reg Rate and Rhythm, Normal S1 and S2, No Murmur Incision: No signs of infection, Dry/intact dressing Chest tubes: Minimal drainage, Air leak Lungs: Normal Breath Sounds (Left lung jackson), Decreased breath sounds (Right lung jackson) Neuro: Alert and responsive, No focal deficits noted Musculoskeletal: No Chest Wall Tenderness Extremities: No Clubbing, No Cyanosis, No Edema - Labs 06/21/17 04:03 06/21/17 04:03 Lab Results, Last 24 hours 06/20/17 06/20/17 06/20/17 12:32 12:32 12:32 WBC 11.5 H Hgb 7.1 L Hct 23.2 L Plt Count 480 H Sodium 137 Potassium 4.8 Chloride 107 Carbon Dioxide 24 BUN 12 Creatinine 0.51 L Glucose 199 H Calcium 8.2 L Magnesium 1.5 L 06/20/17 06/21/17 06/21/17 19:40 04:03 04:03 WBC 15.3 H Hgb 7.5 L 7.3 L Hct 24.1 L 22.9 L Plt Count 407 H Sodium 137 Potassium 4.7 Chloride 109 H Carbon Dioxide 22 L BUN 15 Creatinine 0.51 L Glucose 166 H Calcium 8.3 L Magnesium 1.8 - Imaging Chest Xray: image reviewed (Small right basilar pneumothorax. Right-sided subcutaneous emphysema. Increased left lung jackson opacities.) - VTE Documentation of Mechanical Device: Intermittent pneumatic compression device Consult Discharge Plan - Plan Referrals: Braden Mas MD [Primary Care Provider] -
--- NOTE | 2017-06-21 09:30 | Infectious Disease Consult ---
Date of Encounter: 06/21/17 Time of Encounter: 09:20 Assessment and Plan (1) Sepsis Status: Acute Assessment and plan: Upon arrival patient met 3 out of 4 SIRS criteria with pneumonia/empyema the presumed source Patient had fever, tachycardia, bandemia Blood pressure is stable. Lactic acid was elevated at 2.3, has since normalized.. Blood cultures have been drawn and are no growth to date Antibiotics as discussed below. Qualifiers: Sepsis type: sepsis due to unspecified organism Qualified Code(s): A41.9 - Sepsis, unspecified organism (2) Empyema Status: Acute Assessment and plan: Causative organism unclear Secondary to pneumonia Intraoperative pleural fluid cultures and BAL cultures are pending but Gram stain does show gram-positive cocci and gram-positive rods Initial blood cultures are negative. Concern for anaerobes due to possible aspiration given right lower lobe location and necrotizing nature of the pneumonia with gas formation. Patient underwent operative drainage on June 20 Currently on meropenem 1 g every 8 hours and vancomycin 1.5 g every 12 hours We will discontinue meropenem and start Zosyn Continue broad-spectrum empiric antibiotics until cultures are resulted Creatinine clearance 159 Duration will be based on clinical course but at minimum 4 weeks (3) Hydropneumothorax Status: Acute Assessment and plan: Likely related to pneumonia and empyema as discussed above. Further management per CT surgery (4) Pneumonia Status: Acute Assessment and plan: Community-acquired pneumonia versus aspiration pneumonia Plan as above Qualifiers: Pneumonia type: due to unspecified organism Laterality: right Lung location: lower lobe of lung Qualified Code(s): J18.1 - Lobar pneumonia, unspecified organism (5) Acute respiratory failure with hypoxia Status: Acute Assessment and plan: Currently intubated on mechanical ventilation postoperatively Further management per ICU team (6) Hypertension Status: Acute Qualifiers: Hypertension type: essential hypertension Qualified Code(s): I10 - Essential (primary) hypertension (7) DM (diabetes mellitus) Status: Acute Qualifiers: Diabetes mellitus type: type 2 Diabetes mellitus local [employer] insulin use: unspecified [employer] insulin use status Diabetes mellitus complication status : with other specified complication Qualified Code(s): E11.69 - Type 2 diabetes mellitus with other specified complication (8) Anemia Status: Acute Qualifiers: Anemia type: unspecified type Qualified Code(s): D64.9 - Anemia, unspecified Infectious Disease HPI - Data of Consult Patient: new to practice Consult date: 06/21/17 Requesting Physician: Manuel Villar MD Primary Care Provider: Braden Mas MD - Consult Narrative Reason for consult: Necrotizing pneumonia/empyema History of present illness: Mr. Chaudhry is a 57 year old male with history of type 2 diabetes, hypertension, previous alcohol and tobacco use was admitted to [facility] on 06/19/2017 for necrotizing pneumonia and empyema. Infectious disease service was consulted on 06/21/2017 for assistance with antibiotic management. Patient is a 57-year-old male with history as discussed above. Patient is currently intubated and sedated with no family present so the history is somewhat limited. History is obtained from the medical record. Apparently the patient presents emergency department for worsening of his shortness of breath, he had been short of breath for the last several months. His symptoms progressed to where it was difficult for him to lie flat. He had associated cough with persistent sputum production Apparently he had seen his primary care physician several times in the last few weeks and was treated with antibiotics. Per the admission H&P patient followed better with antibiotics but his symptoms did not completely resolve. Upon presentation to the emergency department patient underwent imaging of the thorax where a chest CT revealed a moderate to large loculated right hydropneumothorax suggestive of empyema with continuity of the parenchyma of the right lower lobe suggesting bronchopleural fistula or necrotizing pneumonia. Patient was febrile on presentation with a MAXIMUM TEMPERATURE of 101.2 Fahrenheit, tachycardic with heart rate in the 120s, tachypneic with respiratory rate of 22. Upon presentation were blood cell count was 7.6 with 40% bands. He had a lactic acidosis of 2.3. Cardiothoracic surgery and pulmonology were consulted and the patient underwent thoracotomy with decortication as well as bronchoscopy. Intraoperative findings found a large amount of thick purulent drainage within the endotracheal tube as well as pockets of pus from the right pleural space. There is a significant amount of inflammation and adherence. On bronchoscopy patient had mucopurulent secretions mostly in the right lower lobe segments with some purulent secretion in the left mainstem bronchus. Bronchial alveolar lavage and pleural fluid was sent to the lab for culture and analysis. CC: Manuel Villar MD Past Med Surg Social Fam HX - Past Medical History Medical history: diabetes, hypertension Psychiatric history: no psych history - Past Surgical History Surgical History: non-contributory - Social History Smoking Status: Former smoker Smokeless Tobacco Status: No Alcohol use: none (Quit in February) Drug use: none Infectious Disease-CN:Meds Aspirin [Lo-Dose Aspirin EC] 81 mg PO DAILY 06/19/17 [History] Lisinopril [Zestril] 40 mg PO DAILY 06/19/17 [History] Metformin HCl [Glucophage] 1,000 mg PO DAILY 06/19/17 [History] Naproxen Sodium [Aleve] 440 mg PO DAILY PRN 06/19/17 [History] Simvastatin [Zocor] 20 mg PO DAILY 06/19/17 [History] 3 Allergy/AdvReac Type Severity Reaction Status Date / Time No Known Allergies Allergy Verified 06/19/17 15:03 ROS unobtainable: due to endotracheal tube Exam - Constitutional Vitals: Temp Pulse Resp BP Pulse Ox 98.1 F 124 19 154/54 96 06/21/17 07:39 06/21/17 09:11 06/21/17 09:11 06/21/17 09:11 06/21/17 09:11 General appearance: no acute distress - Head Head exam: Present: atraumatic, normal inspection, normocephalic - Eye Eye exam: Present: EOMI - Respiratory Respiratory exam: Present: rhonchi (bilaterally). Absent: wheezes, tachypnea Additional comments: Currently intubated on mechanical ventilation - Cardiovascular Cardiovascular exam: Present: tachycardia. Absent: diastolic murmur, irregular rhythm, rubs, systolic murmur Additional comments: Chest tubes present draining bloody fluid. - GI/Abdominal GI/Abdominal exam: Present: hypoactive bowel sounds, soft. Absent: distended, tenderness - Extremities Exam Extremities exam: Absent: pedal edema - Neurological Exam Additional comments: Patient is awake and sedated but will wake up to verbal stimuli and follow commands. He does not appear to be in any acute distress Infectious Disease CN: Results - Labs CBC & Chem 7: 06/21/17 04:03 06/21/17 04:03 Cultures: Cultures 06/20/17 11:12 Body Fluid Culture - Preliminary Other-Specify in Comments 06/20/17 11:50 Gram Stain - Final Right Lower Lobe Lung Serology: Serology 06/20/17 Range/Units 11:50 Fluid Source right lower lobe BAL Fluid Volume 14 mL Fluid Appearance Hazy A (Clear) Fluid RBC TNP Fld Tot Nucleated Cell TNP Fluid Seg Neutrophil % 83.0 % Fld Band Neutrophil % Test Not Performed Fluid Lymphocytes % 8.0 % Fluid Monocytes % 4.0 % Fluid Eosinophils % Test Not Performed Fluid Basophils % Test Not Performed Fluid Other Cells % 5.0 % - VTE Documentation of Mechanical Device: Intermittent pneumatic compression device Consult Discharge Plan - Plan Referrals: Braden Mas MD [Primary Care Provider] - - Attending Attestation I examined this patient and my medical decision-making was reviewed with the Resident Physician. I agree with the documented findings, disposition and treatment plan as described except to the extent set forth below. This is an addendum to original report dictated by resident physician. Please refer to residents note for full detail. Most of the information was taken from medical records and nursing staff. There was no family at bedside and patient is intubated and sedated. The nurse Florinda tells me that he did have family here earlier that day left. Patient apparently was admitted to [facility] where he was found to have emphysema and necrotizing pneumonia. Patient had a CT scan which was pretty impressive. Patient was admitted where he had a thoracotomy done by Dr. Turner. I had a chance to speak with Dr. Turner and he told me it was pretty extensive and there. Was a lot of purulence and foul-smelling. There was a lot of inflammation as well. He thinks patient is not doing very well and he probably needs a pneumonectomy. Intra-Op cultures were sent and as of now the results are pending but Gram stain showing gram-positive cocci and gram-negative rods. Patient was started empirically on vancomycin and meropenem were asked to evaluate the patient make further recommendation. Patient continues to be febrile tachycardic and continues to have bandemia but lactic acidosis has resolved. Patient continues to be on vent support but not requiring high PEEPs. Assessment and plan patient sedated and intubated on vent support does not have any poor dentition chest is expanding symmetrically he does have a chest tube on the right side. Abdomen is soft no guarding nontender extremities adequate perfusion he does have a Castro catheter he has no rash Assessment and plan severe sepsis secondary to necrotizing pneumonia and empyema Necrotizing pneumonia causative organism not clear likely multi microbial. Patient has a history of heavy EtOH abuse but per records he stopped drinking in February Empyema status post thoracotomy causative organism not clear Hydropneumothorax Acute respiratory failure on vent support History of EtOH abuse Recommendations: DC meropenem Continue vancomycin with cold vancomycin trough around 15 Start Zosyn 3.375 every 8 hours Monitor labs and for drug toxicity Dose adjust antibiotics based on creatinine clearance pharmacy to help with the Duration of treatment at least 4 weeks depending on the clinical picture but maybe even longer We will continue to follow prognosis is guarded
--- NOTE | 2017-06-21 09:35 | Pulmonology Progress Note ---
<JulioZhangs W - Last Filed: 06/21/17 13:33> Date of Encounter: 06/21/17 Objective PUL Vital signs: Last Vital Signs Temp 98.1 F 06/21/17 07:39 Pulse 124 06/21/17 09:11 Resp 19 06/21/17 09:11 BP 154/54 06/21/17 09:11 Pulse Ox 96 06/21/17 09:11 Ventilator Settings Ventilator Settings: Ventilator Settings, Last 8 Hours Ventilator Mode VC+ Ventilator Tidal Volume 450 Setting Ventilator Tidal Volume 450 Setting Ventilator Tidal Volume 450 Setting Ventilator Tidal Volume 450 Setting Ventilator Tidal Volume 450 Setting Ventilator Tidal Volume 450 Setting Ventilator Tidal Volume 450 Setting Ventilator Tidal Volume 450 Setting Ventilator Tidal Volume 450 Setting Ventilator Tidal Volume 450 Setting Ventilator Tidal Volume 450 Setting Ventilator Respiratory Rate 16 Setting Ventilator Respiratory Rate 16 Setting Ventilator Respiratory Rate 16 Setting Ventilator Respiratory Rate 22 Setting Ventilator Respiratory Rate 22 Setting Ventilator Respiratory Rate 22 Setting Ventilator Respiratory Rate 22 Setting Ventilator Respiratory Rate 22 Setting Ventilator Respiratory Rate 22 Setting Ventilator Respiratory Rate 22 Setting Ventilator Respiratory Rate 22 Setting Actual Respiratory Rate 18 Actual Respiratory Rate 18 Actual Respiratory Rate 18 Actual Respiratory Rate 26 Actual Respiratory Rate 18 Actual Respiratory Rate 22 Actual Respiratory Rate 22 Actual Respiratory Rate 22 Actual Respiratory Rate 22 Actual Respiratory Rate 22 Actual Respiratory Rate 22 Positive End Expiratory 5 Pressure Positive End Expiratory 5 Pressure Positive End Expiratory 5 Pressure Positive End Expiratory 5 Pressure Positive End Expiratory 5 Pressure Positive End Expiratory 5 Pressure Positive End Expiratory 5 Pressure Positive End Expiratory 5 Pressure Positive End Expiratory 5 Pressure Positive End Expiratory 5 Pressure Positive End Expiratory 5 Pressure Peak Inspiratory Airway 5 Pressure Peak Inspiratory Airway 8 Pressure Peak Inspiratory Airway 8 Pressure Peak Inspiratory Airway 13 Pressure Peak Inspiratory Airway 11 Pressure Peak Inspiratory Airway 29 Pressure Peak Inspiratory Airway 29 Pressure Peak Inspiratory Airway 30 Pressure Peak Inspiratory Airway 27 Pressure Peak Inspiratory Airway 29 Pressure Peak Inspiratory Airway 26 Pressure Results - Laboratory Findings CBC and BMP: 06/21/17 04:03 06/21/17 04:03 ABG ABG pH 7.33 pH Units (7.32-7.45) 06/21/17 05:42 ABG pCO2 46 mmHg (35-45) H 06/21/17 05:42 ABG pO2 89 mmHg (85-104) 06/21/17 05:42 ABG O2 Saturation 96 % (95-98) 06/21/17 05:42 PT/INR, D-dimer PT 13.2 Seconds (9.4-12.1) H 06/20/17 04:11 D-Dimer 2191 ng/mLFEU (0-500) H 06/19/17 11:04 Abnormal lab findings: Abnormal lab results WBC 15.3 K/mcL (4.3-11.1) H 06/21/17 04:03 RBC 2.57 M/mcL (4.19-5.50) L 06/21/17 04:03 Hgb 7.3 g/dL (12.9-16.9) L 06/21/17 04:03 Hct 22.9 % (37.5-50.1) L 06/21/17 04:03 RDW 16.5 % (11.5-14.5) H 06/21/17 04:03 Plt Count 407 K/mcL (140-400) H 06/21/17 04:03 MPV 8.4 fL (9.4-12.4) L 06/21/17 04:03 Band Neutrophils % 48.0 % (0-4) H 06/21/17 04:03 Metamyelocytes % 4.0 % (0) H 06/20/17 12:32 Neutrophils # 9.8 K/mcL (1.6-8.9) H 06/21/17 04:03 Reactive Lymphocytes Present (Not Present) A 06/20/17 04:11 Hypochromasia Present (Not Present) A 06/20/17 04:11 Poikilocytosis 1+ (Not Present) A 06/20/17 12:32 Anisocytosis 1+ (Not Present) A 06/20/17 12:32 Microcytosis Present (Not Present) A 06/20/17 04:11 Helmet Cells Present (Not Present) A 06/20/17 12:32 PT 13.2 Seconds (9.4-12.1) H 06/20/17 04:11 APTT 24.8 Seconds (26.0-36.0) L 06/20/17 04:11 D-Dimer 2191 ng/mLFEU (0-500) H 06/19/17 11:04 ABG pCO2 46 mmHg (35-45) H 06/21/17 05:42 Chloride 109 mEq/L (98-107) H 06/21/17 04:03 Carbon Dioxide 22 mEq/L (23-29) L 06/21/17 04:03 Creatinine 0.51 mg/dL (0.70-1.30) L 06/21/17 04:03 BUN/Creatinine Ratio 29 (6-26) H 06/21/17 04:03 Glucose 166 mg/dL (70-105) H 06/21/17 04:03 POC Glucose 139 mg/dL (70-99) H 06/21/17 07:17 Calcium 8.3 mg/dL (8.6-10.3) L 06/21/17 04:03 Phosphorus 6.9 mg/dL (2.7-4.5) H 06/20/17 12:32 Iron 17 mcg/dL (65-175) L 06/20/17 04:11 % Saturation 7 % (20-55) L 06/20/17 04:11 Transferrin 167 mg/dL (203-362) L 06/20/17 04:11 Ferritin 497 ng/ml (20-250) H 06/20/17 04:11 Total Bilirubin 0.1 mg/dL (0.3-1.0) L 06/20/17 04:11 AST 9 Units/L (13-39) L 06/20/17 04:11 B-Natriuretic Peptide 323 pg/mL (Less than 100) H 06/20/17 04:11 Albumin 2.5 g/dL (3.5-5.7) L 06/20/17 04:11 Globulin 4.6 g/dL (2.4-3.5) H 06/20/17 04:11 Albumin/Globulin Ratio 0.5 (1.1-2.2) L 06/20/17 04:11 HDL Cholesterol 31 mg/dL (40-59) L 06/20/17 04:11 Fluid Appearance Hazy (Clear) A 06/20/17 11:50 Vancomycin Trough 12 mcg/mL (5-10) H 06/21/17 04:03 - Microbiology Findings Microbiology Findings: Microbiology, Last 48 Hours 06/20/17 11:12 Body Fluid Culture - Preliminary Other-Specify in Comments 06/20/17 11:50 Gram Stain - Final Right Lower Lobe Lung - Clinical Findings Intake & Output: Intake & Output 06/20/17 06/21/17 06/21/17 23:59 07:59 15:59 Intake Total 2900 / 2900 1170 / 1170 Output Total 1352 / 1352 460 / 460 Balance 1548 / 1548 710 / 710 Weight 77.3 kg Consult Discharge Plan - Plan Referrals: Braden Mas MD [Primary Care Provider] - - Attending Attestation I examined this patient and my medical decision-making was reviewed with the Resident Physician. I agree with the documented findings, disposition and treatment plan as described except to the extent set forth below. We independently had [id number] contact with the patient Patient seen and examined at bedside Labs, radiology, chart personally reviewed. Management was reviewed during multidisciplinary critical care rounds. DUCT MAKER: The patient is sedated but able to follow commands and nod his head to simple questions continue daily spontaneous awake trial while receiving sedation for vent/analgesis post surgery. Patient also has a nerve block in place Pulm: Acute hypoxic respiratory failure on vent secondary to necrotizing pneumonia with empyema status post decortication. Couple get a by bronchopleural fistula although much less impairment in ventilation today continue low tidal ventilatory strategy with ABG today demonstrating acceptable gas exchange I have decreased his basal MV respiratory rate. Additionally patient has a small residual pneumothorax defer management of chest tube to the primary cardiothoracic surgeon. I discussed the case with the cardiothoracic surgeon and asked the infectious disease service to see the patient as well I suspect there is a high probability the patient may need to have partial or total pneumonectomy will likely need repeat imaging in the next 24-48 hours to see about the treatment effects that is post decortication. There is some possibility of spillover effect and the left lung with increasing opacification there lab to monitor this closely Cards: Hemodynamically stable remove arterial line; continue IV fluids for insensible losses postsurgically FEN-GI: Start enteral nutrition per dietary recommendations GI prophylaxis given Renal: Urine output monitored ID: Continue broad-spectrum antimicrobials pending culture reviewed results of empyema infectious disease service has been consulted; patient will need prolonged antibiotic treatment possibly as long as 6 weeks Heme/Onc: DVT prophylaxis given Endo: Glucose Monitored Integ/MSK: Skin Care per routine ICU Nursing Protocol to prevent ulcers. Lines: All lines examined without evidence of infection : Dispo: Remain in ICU CODE: Full I updated the life partner/girlfriend of the patient at bedside today will questions answered <Percy Odom - Last Filed: 06/21/17 14:21> Date of Encounter: 06/21/17 Time of Encounter: 09:00 Assessment and Plan (1) Acute respiratory failure with hypoxia Current Visit: Yes Status: Acute Patient presented with chronic dyspnea with increasing sputum production. Patient was seen in the ER and was diagnosed with empyema and concerns for necrotizing pneumonia. Patient was admitted to the hospitalist service with cardiothoracic surgery consult. Patient is postop from a right posterior lateral thoracotomy with a right lower lobe decortication POD #1. Patient remained intubated following the operation. - Repeat CXR on 06/21 shows increased opacities in left lung with tiny pneumothorax - Broncoscopy on 06/20 report shows mucopurulent secretions in RLL and RML PLAN -Maintain mechanical ventilation with lung protective strategy. -Bronchoscopy performed at bedside on 06/20 with BAL pending cytology. -Continue broad-spectrum antibiotics. Vancomycin DAY 3 and meropenem DAY 2 -No attempts at extubation following the operating room given the patient's extensive pneumonia -Hx smoking. Will continue duonebs q6h scheduled. - Consult to ID today for further recommendations. (2) Empyema Current Visit: Yes Status: Acute As above (3) Hydropneumothorax Current Visit: Yes Status: Acute CTA chest: Right sided hydropneumothorax. Postop day 1 from a right posterior lateral thoracotomy with right lower lobe decortication. Cardiothoracic surgery following. Appreciate recommendations. Chest tube in place management deferred to cardiothoracic surgery. Plan as above (4) Hypertension Current Visit: Yes Status: Acute - Well controlled at 140/54 - Continue current meds Qualifiers: Hypertension type: essential hypertension Qualified Code(s): I10 - Essential (primary) hypertension (5) DM (diabetes mellitus) Current Visit: Yes Status: Acute - BS of 166 this AM - Well controlled at this time. - Continue Low dose SSI - No recent A1c. Will obtain with AM labs Qualifiers: Diabetes mellitus type: type 2 Diabetes mellitus [facility] insulin use: unspecified [facility] insulin use status Diabetes mellitus complication status : with other specified complication Qualified Code(s): E11.69 - Type 2 diabetes mellitus with other specified complication (6) Anemia Current Visit: Yes Status: Acute - Patient presented with hemoglobin of 9.0, decreased following surgery - Hb today of 7.3, stable from previous of 7.5 - Previous hemoglobin 11.7 in March 2014 - Iron studies low on labs. Will replenish when able. High RDW Plan Patient type and cross with 2 units PRBCs on hold Transfuse if hemoglobin falls below 7 We will attempt to obtain iron studies prior to any transfusion Qualifiers: Anemia type: unspecified type Qualified Code(s): D64.9 - Anemia, unspecified (7) Pneumonia Current Visit: Yes Status: Acute Qualifiers: Pneumonia type: due to unspecified organism Laterality: right Lung location: lower lobe of lung Qualified Code(s): J18.1 - Lobar pneumonia, unspecified organism (8) Sepsis Current Visit: Yes Status: Acute Qualifiers: Sepsis type: sepsis due to unspecified organism Qualified Code(s): A41.9 - Sepsis, unspecified organism (9) DVT prophylaxis Current Visit: Yes Status: Acute - Add SCDs Subjective Principal diagnosis: Acute respiratory failure Interval history: Patient seen and examined at bedside this morning. Patient is intubated and sedated and unable to participate in interview. Significant other is present at bedside. No overnight events Objective PUL Vital signs: Last Vital Signs Temp 98.1 F 06/21/17 07:39 Pulse 124 06/21/17 09:11 Resp 19 06/21/17 09:11 BP 154/54 06/21/17 09:11 Pulse Ox 96 06/21/17 09:11 Gen.: Vitals noted. No acute distress. Intubated and sedated. Morbidly obese. HEENT: PERRL/EOMI, oropharynx clear, Normocephalic, atraumatic, MMM, ET tube in place. Cardiac: RRR, no murmur, +S1/S2 Pulmonary: Diffuse rales present bilaterally. equal chest expansion Abdomen: soft,, BS noted, no guarding, no rebound. Extremities: no BLE edema, nontender calf, no cyanosis or clubbing Neuro: Sedated, pupils reactive, unable to assess further due to sedation. Psych: Unable to assess. Ventilator Settings Ventilator Settings: Ventilator Settings, Last 8 Hours Ventilator Mode VC+ Ventilator Tidal Volume 450 Setting Ventilator Tidal Volume 450 Setting Ventilator Tidal Volume 450 Setting Ventilator Tidal Volume 450 Setting Ventilator Tidal Volume 450 Setting Ventilator Tidal Volume 450 Setting Ventilator Tidal Volume 450 Setting Ventilator Tidal Volume 450 Setting Ventilator Tidal Volume 450 Setting Ventilator Tidal Volume 450 Setting Ventilator Tidal Volume 450 Setting Ventilator Respiratory Rate 16 Setting Ventilator Respiratory Rate 16 Setting Ventilator Respiratory Rate 16 Setting Ventilator Respiratory Rate 22 Setting Ventilator Respiratory Rate 22 Setting Ventilator Respiratory Rate 22 Setting Ventilator Respiratory Rate 22 Setting Ventilator Respiratory Rate 22 Setting Ventilator Respiratory Rate 22 Setting Ventilator Respiratory Rate 22 Setting Ventilator Respiratory Rate 22 Setting Actual Respiratory Rate 18 Actual Respiratory Rate 18 Actual Respiratory Rate 18 Actual Respiratory Rate 26 Actual Respiratory Rate 18 Actual Respiratory Rate 22 Actual Respiratory Rate 22 Actual Respiratory Rate 22 Actual Respiratory Rate 22 Actual Respiratory Rate 22 Actual Respiratory Rate 22 Positive End Expiratory 5 Pressure Positive End Expiratory 5 Pressure Positive End Expiratory 5 Pressure Positive End Expiratory 5 Pressure Positive End Expiratory 5 Pressure Positive End Expiratory 5 Pressure Positive End Expiratory 5 Pressure Positive End Expiratory 5 Pressure Positive End Expiratory 5 Pressure Positive End Expiratory 5 Pressure Positive End Expiratory 5 Pressure Peak Inspiratory Airway 5 Pressure Peak Inspiratory Airway 8 Pressure Peak Inspiratory Airway 8 Pressure Peak Inspiratory Airway 13 Pressure Peak Inspiratory Airway 11 Pressure Peak Inspiratory Airway 29 Pressure Peak Inspiratory Airway 29 Pressure Peak Inspiratory Airway 30 Pressure Peak Inspiratory Airway 27 Pressure Peak Inspiratory Airway 29 Pressure Peak Inspiratory Airway 26 Pressure Results - Laboratory Findings CBC and BMP: 06/21/17 04:03 06/21/17 04:03 ABG ABG pH 7.33 pH Units (7.32-7.45) 06/21/17 05:42 ABG pCO2 46 mmHg (35-45) H 06/21/17 05:42 ABG pO2 89 mmHg (85-104) 06/21/17 05:42 ABG O2 Saturation 96 % (95-98) 06/21/17 05:42 PT/INR, D-dimer PT 13.2 Seconds (9.4-12.1) H 06/20/17 04:11 D-Dimer 2191 ng/mLFEU (0-500) H 06/19/17 11:04 Abnormal lab findings: Abnormal lab results WBC 15.3 K/mcL (4.3-11.1) H 06/21/17 04:03 RBC 2.57 M/mcL (4.19-5.50) L 06/21/17 04:03 Hgb 7.3 g/dL (12.9-16.9) L 06/21/17 04:03 Hct 22.9 % (37.5-50.1) L 06/21/17 04:03 RDW 16.5 % (11.5-14.5) H 06/21/17 04:03 Plt Count 407 K/mcL (140-400) H 06/21/17 04:03 MPV 8.4 fL (9.4-12.4) L 06/21/17 04:03 Band Neutrophils % 48.0 % (0-4) H 06/21/17 04:03 Metamyelocytes % 4.0 % (0) H 06/20/17 12:32 Neutrophils # 9.8 K/mcL (1.6-8.9) H 06/21/17 04:03 Reactive Lymphocytes Present (Not Present) A 06/20/17 04:11 Hypochromasia Present (Not Present) A 06/20/17 04:11 Poikilocytosis 1+ (Not Present) A 06/20/17 12:32 Anisocytosis 1+ (Not Present) A 06/20/17 12:32 Microcytosis Present (Not Present) A 06/20/17 04:11 Helmet Cells Present (Not Present) A 06/20/17 12:32 PT 13.2 Seconds (9.4-12.1) H 06/20/17 04:11 APTT 24.8 Seconds (26.0-36.0) L 06/20/17 04:11 D-Dimer 2191 ng/mLFEU (0-500) H 06/19/17 11:04 ABG pCO2 46 mmHg (35-45) H 06/21/17 05:42 Chloride 109 mEq/L (98-107) H 06/21/17 04:03 Carbon Dioxide 22 mEq/L (23-29) L 06/21/17 04:03 Creatinine 0.51 mg/dL (0.70-1.30) L 06/21/17 04:03 BUN/Creatinine Ratio 29 (6-26) H 06/21/17 04:03 Glucose 166 mg/dL (70-105) H 06/21/17 04:03 POC Glucose 139 mg/dL (70-99) H 06/21/17 07:17 Calcium 8.3 mg/dL (8.6-10.3) L 06/21/17 04:03 Phosphorus 6.9 mg/dL (2.7-4.5) H 06/20/17 12:32 Iron 17 mcg/dL (65-175) L 06/20/17 04:11 % Saturation 7 % (20-55) L 06/20/17 04:11 Transferrin 167 mg/dL (203-362) L 06/20/17 04:11 Ferritin 497 ng/ml (20-250) H 06/20/17 04:11 Total Bilirubin 0.1 mg/dL (0.3-1.0) L 06/20/17 04:11 AST 9 Units/L (13-39) L 06/20/17 04:11 B-Natriuretic Peptide 323 pg/mL (Less than 100) H 06/20/17 04:11 Albumin 2.5 g/dL (3.5-5.7) L 06/20/17 04:11 Globulin 4.6 g/dL (2.4-3.5) H 06/20/17 04:11 Albumin/Globulin Ratio 0.5 (1.1-2.2) L 06/20/17 04:11 HDL Cholesterol 31 mg/dL (40-59) L 06/20/17 04:11 Fluid Appearance Hazy (Clear) A 06/20/17 11:50 Vancomycin Trough 12 mcg/mL (5-10) H 06/21/17 04:03 - Microbiology Findings Microbiology Findings: Microbiology, Last 48 Hours 06/20/17 11:12 Body Fluid Culture - Preliminary Other-Specify in Comments 06/20/17 11:50 Gram Stain - Final Right Lower Lobe Lung - Clinical Findings Intake & Output: Intake & Output 06/20/17 06/21/17 06/21/17 23:59 07:59 15:59 Intake Total 2900 / 2900 1170 / 1170 Output Total 1352 / 1352 460 / 460 Balance 1548 / 1548 710 / 710 Weight 77.3 kg - VTE Documentation of Mechanical Device: Intermittent pneumatic compression device
[2017-06-21] MEDS ORDERED: Acetaminophen IV 1,000 MG/100 ML INFUS..BTL IVPB ONE (12:02)
--- NOTE | 2017-06-21 15:32 | Electrocardiograph Report ---
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
[2017-06-21] MEDS: Piperacillin/Tazobactam 3.375 GM in 0.9 % Sodium Chloride Mini Bag 100 ML IVPB SCH (16:51)
[2017-06-22] MEDS: Insulin LISPRO 300 UNITS/3 ML VIAL SQ SCH ×2 (00:15→05:59)
[2017-06-22] MEDS: Lacri-Lube 3.5 GM TUBE BOTH EYES SCH ×2 (00:16→03:21)
[2017-06-22] MEDS: Piperacillin/Tazobactam 3.375 GM in 0.9 % Sodium Chloride Mini Bag 100 ML IVPB SCH (00:18)
[2017-06-22] MEDS: Ringers Solution, Lactated 1,000 ML IVC SCH (03:20)
[2017-06-22] MEDS: Ipratropium/Albuterol Neb 3 ML IH SCH ×2 (03:25→09:09)
[2017-06-22 04:28] LABS: Eosinophils % 0.6 %
[2017-06-22 04:29] LABS: Basophils # 0.1 K/mcL (0.0-0.2); Basophils % 0.3 %; Eosinophils # 0.2 K/mcL (0.0-0.6); Hematocrit 26.5 % (37.5-50.1); Immature Granulocytes % 3.6 % (0-4); Lymphocytes # 1.5 K/mcL (0.6-4.6); Lymphocytes % 4.6 %; Mean Corpuscular HGB Conc 30.2 g/dL (31.6-35.5); Mean Corpuscular Hemoglobin 28.5 pg (28.0-33.3); Mean Corpuscular Volume 94.3 fL (83.0-100.0); Mean Platelet Volume 8.2 fL (9.4-12.4); Monocytes % 5.8 %; Nucleated Red Blood Cells 0.1 /100 WBC (0); Platelet Count 377 K/mcL (140-400); Red Blood Count 2.81 M/mcL (4.19-5.50); Segmented Neutrophils % 85.1 %
[2017-06-22 04:32] LABS: Monocytes # 1.8 K/mcL (0.0-1.3)
[2017-06-22 04:47] LABS: Anisocytosis 1+ (Not Present); Hypochromasia Present (Not Present); Microcytosis Present (Not Present); Platelet Estimate Normal (Normal)
[2017-06-22 04:49] LABS: BUN/Creatinine Ratio 27 (6-26); Blood Urea Nitrogen 14 mg/dL (6-20); Calcium 8.8 mg/dL (8.6-10.3); Carbon Dioxide 23 mEq/L (23-29); Chloride 107 mEq/L (98-107); Glucose 179 mg/dL (70-105); Osmolality,Calculated 289 (280-300); Sodium 137 mEq/L (136-145); eGFR For African Americans > 60 (> 60); eGFR For Non-African Americans > 60 (> 60)
[2017-06-22 04:56] LABS: ABG Base Excess -1 mEq/L (-2 to 3); ABG HCO3 29 mEq/L (21-27); ABG Oxygen Saturation 91 % (95-98); ABG PCO2 83 mmHg (35-45); ABG PH 7.14 pH Units (7.32-7.45); ABG PO2 81 mmHg (85-104); ABG TCO2 31 mEq/L (20-26); Blood Gas Modality VC; Blood Gas PEEP 5 cm H2O; Blood Gas Respiration Rate 16; Blood Gas VT 450 cc
[2017-06-22 05:12] LABS: Magnesium 1.8 mg/dL (1.6-2.6)
[2017-06-22] MEDS: FentaNYL (PF) 1,000 MCG in 0.9 % Sodium Chloride 80 ML IVC SCH (05:43)
[2017-06-22 06:50] LABS: Estimated Average Glucose 166 mg/dl; Hemoglobin A1C 7.4 %
[2017-06-22 07:03] LABS: ABG Base Excess -1 mEq/L (-2 to 3); ABG HCO3 28 mEq/L (21-27); ABG Oxygen Saturation 76 % (95-98); ABG PCO2 76 mmHg (35-45); ABG PH 7.17 pH Units (7.32-7.45); ABG PO2 53 mmHg (85-104); ABG TCO2 30 mEq/L (20-26); Blood Gas Modality VC; Blood Gas PEEP 5 cm H2O; Blood Gas Respiration Rate 20; Blood Gas VT 450 cc
[2017-06-22] MEDS ORDERED: Vecuronium 50 MG in 0.9 % Sodium Chloride 150 ML IVC SCH (07:30)
[2017-06-22] MEDS ORDERED: Norepinephrine 4 MG in D5% in Water 250 ML IVC SCH (07:45)
[2017-06-22 07:51] LABS: ABG Base Excess 0 mEq/L (-2 to 3); ABG HCO3 29 mEq/L (21-27); ABG Oxygen Saturation 91 % (95-98); ABG PCO2 73 mmHg (35-45); ABG PO2 78 mmHg (85-104); ABG TCO2 31 mEq/L (20-26); Blood Gas Modality VC; Blood Gas PEEP 5 cm H2O; Blood Gas Respiration Rate 18; Blood Gas VT 560 cc
--- NOTE | 2017-06-22 08:23 | Pulmonology Progress Note ---
Date of Encounter: 06/22/17 Time of Encounter: 08:23 Assessment and Plan (1) Acute respiratory failure with hypoxia Current Visit: Yes Status: Acute Patient presented with chronic dyspnea with increasing sputum production. Patient was seen in the ER and was diagnosed with empyema and concerns for necrotizing pneumonia. Patient was admitted to the hospitalist service with cardiothoracic surgery consult. Patient is postop from a right posterior lateral thoracotomy with a right lower lobe decortication POD #1. Patient remained intubated following the operation. - Repeat CXR on 06/21 shows increased opacities in left lung with tiny pneumothorax - Broncoscopy on 06/20 report shows mucopurulent secretions in RLL and RML PLAN -Maintain mechanical ventilation with lung protective strategy. -Bronchoscopy performed at bedside on 06/20 with BAL pending cytology. -Continue broad-spectrum antibiotics. Vancomycin DAY 3 and meropenem DAY 2 -No attempts at extubation following the operating room given the patient's extensive pneumonia -Hx smoking. Will continue duonebs q6h scheduled. - Consult to ID today for further recommendations. (2) Empyema Current Visit: Yes Status: Acute As above (3) Hydropneumothorax Current Visit: Yes Status: Acute CTA chest: Right sided hydropneumothorax. Postop day 1 from a right posterior lateral thoracotomy with right lower lobe decortication. Cardiothoracic surgery following. Appreciate recommendations. Chest tube in place management deferred to cardiothoracic surgery. Plan as above (4) Hypertension Current Visit: Yes Status: Acute - Well controlled at 140/54 - Continue current meds Qualifiers: Hypertension type: essential hypertension Qualified Code(s): I10 - Essential (primary) hypertension (5) DM (diabetes mellitus) Current Visit: Yes Status: Acute - BS of 166 this AM - Well controlled at this time. - Continue Low dose SSI - No recent A1c. Will obtain with AM labs Qualifiers: Diabetes mellitus type: type 2 Diabetes mellitus rn long term care insulin use: unspecified fdc insulin use status Diabetes mellitus complication status : with other specified complication Qualified Code(s): E11.69 - Type 2 diabetes mellitus with other specified complication (6) Anemia Current Visit: Yes Status: Acute - Patient presented with hemoglobin of 9.0, decreased following surgery - Hb today of 7.3, stable from previous of 7.5 - Previous hemoglobin 11.7 in March 2014 - Iron studies low on labs. Will replenish when able. High RDW Plan Patient type and cross with 2 units PRBCs on hold Transfuse if hemoglobin falls below 7 We will attempt to obtain iron studies prior to any transfusion Qualifiers: Anemia type: unspecified type Qualified Code(s): D64.9 - Anemia, unspecified (7) Pneumonia Current Visit: Yes Status: Acute Qualifiers: Pneumonia type: due to unspecified organism Laterality: right Lung location: lower lobe of lung Qualified Code(s): J18.1 - Lobar pneumonia, unspecified organism (8) Sepsis Current Visit: Yes Status: Acute Qualifiers: Sepsis type: sepsis due to unspecified organism Qualified Code(s): A41.9 - Sepsis, unspecified organism (9) DVT prophylaxis Current Visit: Yes Status: Acute - Add SCDs Subjective Principal diagnosis: Acute respiratory failure Interval history: Patient seen and examined at bedside this morning. Patient is intubated and sedated and unable to participate in interview. Significant other is present at bedside. No overnight events Objective PUL Vital signs: Last Vital Signs Temp 100 F H 06/22/17 07:43 Pulse 129 06/22/17 06:00 Resp 18 06/22/17 07:19 BP 87/45 06/22/17 06:00 Pulse Ox 100 06/22/17 07:19 Ventilator Settings Ventilator Settings: Ventilator Settings, Last 8 Hours Ventilator Mode VC+ Ventilator Mode VC+ Ventilator Mode VC+ Ventilator Tidal Volume 560 Setting Ventilator Tidal Volume 560 Setting Ventilator Tidal Volume 450 Setting Ventilator Tidal Volume 450 Setting Ventilator Tidal Volume 450 Setting Ventilator Tidal Volume 450 Setting Ventilator Tidal Volume 450 Setting Ventilator Tidal Volume 450 Setting Ventilator Tidal Volume 450 Setting Ventilator Tidal Volume 450 Setting Ventilator Tidal Volume 450 Setting Ventilator Tidal Volume 450 Setting Ventilator Tidal Volume 450 Setting Ventilator Respiratory Rate 18 Setting Ventilator Respiratory Rate 18 Setting Ventilator Respiratory Rate 20 Setting Ventilator Respiratory Rate 16 Setting Ventilator Respiratory Rate 16 Setting Ventilator Respiratory Rate 16 Setting Ventilator Respiratory Rate 16 Setting Ventilator Respiratory Rate 16 Setting Ventilator Respiratory Rate 16 Setting Ventilator Respiratory Rate 16 Setting Ventilator Respiratory Rate 16 Setting Ventilator Respiratory Rate 16 Setting Ventilator Respiratory Rate 16 Setting Actual Respiratory Rate 18 Actual Respiratory Rate 21 Actual Respiratory Rate 17 Actual Respiratory Rate 17 Actual Respiratory Rate 19 Actual Respiratory Rate 17 Actual Respiratory Rate 20 Actual Respiratory Rate 20 Actual Respiratory Rate 19 Actual Respiratory Rate 19 Positive End Expiratory 5 Pressure Positive End Expiratory 5 Pressure Positive End Expiratory 5 Pressure Positive End Expiratory 5 Pressure Positive End Expiratory 5 Pressure Positive End Expiratory 5 Pressure Positive End Expiratory 5 Pressure Positive End Expiratory 5 Pressure Positive End Expiratory 5 Pressure Positive End Expiratory 5 Pressure Positive End Expiratory 5 Pressure Positive End Expiratory 5 Pressure Positive End Expiratory 5 Pressure Peak Inspiratory Airway 34 Pressure Peak Inspiratory Airway 35 Pressure Peak Inspiratory Airway 32 Pressure Peak Inspiratory Airway 33 Pressure Peak Inspiratory Airway 34 Pressure Peak Inspiratory Airway 20 Pressure Peak Inspiratory Airway 18 Pressure Peak Inspiratory Airway 17 Pressure Peak Inspiratory Airway 22 Pressure Results - Laboratory Findings CBC and BMP: 06/22/17 04:15 06/22/17 04:15 ABG ABG pH 7.20 pH Units (7.32-7.45) L* 06/22/17 07:48 ABG pCO2 73 mmHg (35-45) H* 06/22/17 07:48 ABG pO2 78 mmHg (85-104) L 06/22/17 07:48 ABG O2 Saturation 91 % (95-98) L 06/22/17 07:48 PT/INR, D-dimer PT 13.2 Seconds (9.4-12.1) H 06/20/17 04:11 D-Dimer 2191 ng/mLFEU (0-500) H 06/19/17 11:04 Abnormal lab findings: Abnormal lab results WBC 31.7 K/mcL (4.3-11.1) H* D 06/22/17 04:15 RBC 2.81 M/mcL (4.19-5.50) L 06/22/17 04:15 Hgb 8.0 g/dL (12.9-16.9) L 06/22/17 04:15 Hct 26.5 % (37.5-50.1) L 06/22/17 04:15 MCHC 30.2 g/dL (31.6-35.5) L 06/22/17 04:15 RDW 17.0 % (11.5-14.5) H 06/22/17 04:15 MPV 8.2 fL (9.4-12.4) L 06/22/17 04:15 Band Neutrophils % 48.0 % (0-4) H 06/21/17 04:03 Metamyelocytes % 4.0 % (0) H 06/20/17 12:32 Neutrophils # 27.0 K/mcL (1.6-8.9) H 06/22/17 04:15 Monocytes # 1.8 K/mcL (0.0-1.3) H 06/22/17 04:15 Nucleated RBCs/100 WBC 0.1 /100 WBC (0) H 06/22/17 04:15 Reactive Lymphocytes Present (Not Present) A 06/20/17 04:11 Hypochromasia Present (Not Present) A 06/22/17 04:15 Poikilocytosis 1+ (Not Present) A 06/20/17 12:32 Anisocytosis 1+ (Not Present) A 06/22/17 04:15 Microcytosis Present (Not Present) A 06/22/17 04:15 Helmet Cells Present (Not Present) A 06/20/17 12:32 PT 13.2 Seconds (9.4-12.1) H 06/20/17 04:11 APTT 24.8 Seconds (26.0-36.0) L 06/20/17 04:11 D-Dimer 2191 ng/mLFEU (0-500) H 06/19/17 11:04 ABG pH 7.20 pH Units (7.32-7.45) L* 06/22/17 07:48 ABG pCO2 73 mmHg (35-45) H* 06/22/17 07:48 ABG pO2 78 mmHg (85-104) L 06/22/17 07:48 ABG HCO3 29 mEq/L (21-27) H 06/22/17 07:48 ABG Total CO2 31 mEq/L (20-26) H 06/22/17 07:48 ABG O2 Saturation 91 % (95-98) L 06/22/17 07:48 Creatinine 0.52 mg/dL (0.70-1.30) L 06/22/17 04:15 BUN/Creatinine Ratio 27 (6-26) H 06/22/17 04:15 Glucose 179 mg/dL (70-105) H 06/22/17 04:15 POC Glucose 164 mg/dL (70-99) H 06/22/17 05:57 Hemoglobin A1c 7.4 % (-5.6) H 06/22/17 04:15 Phosphorus 6.9 mg/dL (2.7-4.5) H 06/20/17 12:32 Iron 17 mcg/dL (65-175) L 06/20/17 04:11 % Saturation 7 % (20-55) L 06/20/17 04:11 Transferrin 167 mg/dL (203-362) L 06/20/17 04:11 Ferritin 497 ng/ml (20-250) H 06/20/17 04:11 Total Bilirubin 0.1 mg/dL (0.3-1.0) L 06/20/17 04:11 AST 9 Units/L (13-39) L 06/20/17 04:11 B-Natriuretic Peptide 323 pg/mL (Less than 100) H 06/20/17 04:11 Albumin 2.5 g/dL (3.5-5.7) L 06/20/17 04:11 Globulin 4.6 g/dL (2.4-3.5) H 06/20/17 04:11 Albumin/Globulin Ratio 0.5 (1.1-2.2) L 06/20/17 04:11 HDL Cholesterol 31 mg/dL (40-59) L 06/20/17 04:11 Fluid Appearance Hazy (Clear) A 06/20/17 11:50 Vancomycin Trough 12 mcg/mL (5-10) H 06/21/17 04:03 - Microbiology Findings Microbiology Findings: Microbiology, Last 48 Hours 06/20/17 11:50 Acid Fast Stain - Final Right Lower Lobe Lung 06/20/17 11:12 Body Fluid Culture - Preliminary Other-Specify in Comments 06/20/17 11:50 Gram Stain - Final Right Lower Lobe Lung Respiratory Culture - Preliminary No growth. - Clinical Findings Intake & Output: Intake & Output 06/21/17 06/22/17 06/22/17 23:59 07:59 15:59 Intake Total 2198 / 2198 2725 / 2725 Output Total 975 / 975 815 / 815 Balance 1223 / 1223 1910 / 1910 Weight 78.6 kg - VTE Documentation of Mechanical Device: Intermittent pneumatic compression device Consult Discharge Plan - Plan Referrals: Braden Mas MD [Primary Care Provider] -
--- NOTE | 2017-06-22 08:43 | Procedure Note ---
<Percy Odom - Last Filed: 06/22/17 09:36> Date of procedure: 06/22/17 Pre-op diagnosis: hypotension Post-op diagnosis: same Procedure: Procedure Note: Central Venous Catheter Insertion Indication: Hypotension Attending Physician: Dr. Evan Kim Stretcher Leveler Operator: Dr. Percy Odom Indication: This is a 57 year-old male with necrotizing PNA, hypotension . Consent: Detailed explanation of the procedure, treatment options, risks including but not limited to infection and bleeding, and benefits were explained to the POA, Charlotte Chaudhry. A verbal informed consent was obtained. Technique: A time out was preformed identifying the correct procedure, the correct location with the nursing staff. The right groin was prepped with 2% chlorhexidine and draped with a full length sterile sheet in the usual fashion. The right femoral vein was accessed under ultrasound guidance with an 18 gauge thin wall needle. A triple lumen was inserted via the seldinger technique. Blood was withdrawn from all lumens and flushed with normal saline. The catheter was sutured in place and a sterile dressing was applied over the site prior to removal of drapes. The patient tolerated the procedure well and there were no complications. EBL: minimal Complication: None Anesthesia: IV sedation Surgeon: Percy Odom Was there an kindergarten assistant present: No Estimated blood loss (cc): 0 Specimen: none Pathology: none sent Condition: critical Disposition: ICU <Tra Kim - Last Filed: 06/22/17 13:44> - Attending Attestation I was physically available for the entire procedure
--- NOTE | 2017-06-22 08:43 | Infectious Disease Progress No ---
Date of Encounter: 06/22/17 Time of Encounter: 08:41 - Assessment and Plan (1) Sepsis Status: Acute Upon arrival patient met 3 out of 4 SIRS criteria with pneumonia/empyema the presumed source Patient had fever, tachycardia, bandemia Blood pressure has been labile this morning, requiring pressor therapy with Levaquin. Lactic acid was elevated at 2.3 on presentation, has remained normal. Blood cultures have been drawn and are no growth to date Antibiotics as discussed below. Qualifiers: Sepsis type: sepsis due to unspecified organism Qualified Code(s): A41.9 - Sepsis, unspecified organism (2) Empyema Status: Acute Causative organism unclear, concern for anaerobic infection Secondary to pneumonia Intraoperative pleural fluid cultures and BAL cultures are no growth to date but Gram stain does show gram-positive cocci and gram-positive rods Initial blood cultures are negative. Concern for anaerobes due to possible aspiration given right lower lobe location and necrotizing nature of the pneumonia with gas formation. Patient underwent operative drainage on June 20 Currently on Zosyn 3.375g every 8 hours and vancomycin 1.5 g every 12 hours Continue broad-spectrum empiric antibiotics until cultures are resulted Goal Vanco trough around 15 Creatinine clearance 157 Duration will be based on clinical course but at minimum 4 weeks (3) Hydropneumothorax Status: Acute Likely related to pneumonia and empyema as discussed above. 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 Patient remains intubated, sedated, and is now receiving paralytic medication. I was able to speak with the family briefly and they stated that right around the time that the symptoms all started she did notice that the patient seemed to choke and cough with just about every meal. She does not recall any episodes of overt aspiration. Infect Dis PN-Objective Data - Labs CBC & Chem 7: 06/22/17 04:15 06/22/17 04:15 Labs: Laboratory Results - last 24 hr 06/21/17 06/21/17 06/22/17 11:18 15:44 00:06 WBC RBC Hgb Hct MCV MCH MCHC RDW Plt Count MPV Immature Gran % Seg Neutrophils % Lymphocytes % Monocytes % Eosinophils % Basophils % Neutrophils # Lymphocytes # Monocytes # Eosinophils # Basophils # Nucleated RBCs/100 WBC Platelet Estimate Hypochromasia Anisocytosis Microcytosis Sample Site ABG pH ABG pCO2 ABG pO2 ABG HCO3 ABG Total CO2 ABG O2 Saturation ABG Base Excess Sundar Test Respiration Rate O2 Delivery Device Blood Gas Modality Inspired O2 Tidal Volume PEEP Sodium Potassium Chloride Carbon Dioxide BUN Creatinine Est GFR ( Amer) Est GFR (Non-Af Amer) BUN/Creatinine Ratio Glucose POC Glucose 108 H 121 H 133 H Est Mean Plasma Glucose Hemoglobin A1c Calculated Osmolality Lactic Acid Calcium Magnesium 06/22/17 06/22/17 06/22/17 04:15 04:15 04:15 WBC 31.7 H* D RBC 2.81 L Hgb 8.0 L Hct 26.5 L MCV 94.3 MCH 28.5 MCHC 30.2 L RDW 17.0 H Plt Count 377 MPV 8.2 L Immature Gran % 3.6 Seg Neutrophils % 85.1 Lymphocytes % 4.6 Monocytes % 5.8 Eosinophils % 0.6 Basophils % 0.3 Neutrophils # 27.0 H Lymphocytes # 1.5 Monocytes # 1.8 H Eosinophils # 0.2 Basophils # 0.1 Nucleated RBCs/100 WBC 0.1 H Platelet Estimate Normal Hypochromasia Present A Anisocytosis 1+ A Microcytosis Present A Sample Site ABG pH ABG pCO2 ABG pO2 ABG HCO3 ABG Total CO2 ABG O2 Saturation ABG Base Excess Sundar Test Respiration Rate O2 Delivery Device Blood Gas Modality Inspired O2 Tidal Volume PEEP Sodium 137 Potassium 5.0 Chloride 107 Carbon Dioxide 23 BUN 14 Creatinine 0.52 L Est GFR ( Amer) > 60 Est GFR (Non-Af Amer) > 60 BUN/Creatinine Ratio 27 H Glucose 179 H POC Glucose Est Mean Plasma Glucose 166 Hemoglobin A1c 7.4 H Calculated Osmolality 289 Lactic Acid Calcium 8.8 Magnesium 1.8 06/22/17 06/22/17 06/22/17 04:50 05:06 05:57 WBC RBC Hgb Hct MCV MCH MCHC RDW Plt Count MPV Immature Gran % Seg Neutrophils % Lymphocytes % Monocytes % Eosinophils % Basophils % Neutrophils # Lymphocytes # Monocytes # Eosinophils # Basophils # Nucleated RBCs/100 WBC Platelet Estimate Hypochromasia Anisocytosis Microcytosis Sample Site Art Line ABG pH 7.14 L* ABG pCO2 83 H* ABG pO2 81 L ABG HCO3 29 H ABG Total CO2 31 H ABG O2 Saturation 91 L ABG Base Excess -1 Sundar Test N/A Respiration Rate 16 O2 Delivery Device Adult Vent Blood Gas Modality VC Inspired O2 80.0 Tidal Volume 450 PEEP 5 Sodium Potassium Chloride Carbon Dioxide BUN Creatinine Est GFR ( Amer) Est GFR (Non-Af Amer) BUN/Creatinine Ratio Glucose POC Glucose 164 H Est Mean Plasma Glucose Hemoglobin A1c Calculated Osmolality Lactic Acid 1.0 Calcium Magnesium 06/22/17 06/22/17 06:59 07:48 WBC RBC Hgb Hct MCV MCH MCHC RDW Plt Count MPV Immature Gran % Seg Neutrophils % Lymphocytes % Monocytes % Eosinophils % Basophils % Neutrophils # Lymphocytes # Monocytes # Eosinophils # Basophils # Nucleated RBCs/100 WBC Platelet Estimate Hypochromasia Anisocytosis Microcytosis Sample Site Art Line Art Line ABG pH 7.17 L* 7.20 L* ABG pCO2 76 H* 73 H* ABG pO2 53 L 78 L ABG HCO3 28 H 29 H ABG Total CO2 30 H 31 H ABG O2 Saturation 76 L 91 L ABG Base Excess -1 0 Sundar Test N/A N/A Respiration Rate 20 18 O2 Delivery Device Adult Vent Adult Vent Blood Gas Modality VC VC Inspired O2 60.0 80.0 Tidal Volume 450 560 PEEP 5 5 Sodium Potassium Chloride Carbon Dioxide BUN Creatinine Est GFR ( Amer) Est GFR (Non-Af Amer) BUN/Creatinine Ratio Glucose POC Glucose Est Mean Plasma Glucose Hemoglobin A1c Calculated Osmolality Lactic Acid Calcium Magnesium Cultures: Cultures 06/20/17 11:50 Acid Fast Stain - Final Right Lower Lobe Lung 06/20/17 11:12 Body Fluid Culture - Preliminary Other-Specify in Comments 06/20/17 11:50 Gram Stain - Final Right Lower Lobe Lung Respiratory Culture - Preliminary No growth. Serology 06/20/17 Range/Units 11:50 Fluid Source right lower lobe BAL Fluid Volume 14 mL Fluid Appearance Hazy A (Clear) Fluid RBC TNP Fld Tot Nucleated Cell TNP Fluid Seg Neutrophil % 83.0 % Fld Band Neutrophil % Test Not Performed Fluid Lymphocytes % 8.0 % Fluid Monocytes % 4.0 % Fluid Eosinophils % Test Not Performed Fluid Basophils % Test Not Performed Fluid Other Cells % 5.0 % - Impressions Impressions Chest X-Ray 06/22/17 06:00 IMPRESSION: 1. Postsurgical changes in the right chest are again identified with persistent lucency in the lung base likely reflecting a pneumothorax. 2. Increasing airspace opacities in the left lung. D/ / 06/22/2017 07:48:19 Christa Nelson MD / [facility] Interpreting Provider: Christa Nelson MD Exam - Constitutional Vitals: Temp Pulse Resp BP Pulse Ox 100 F H 129 18 87/45 100 06/22/17 07:43 06/22/17 06:00 06/22/17 07:19 06/22/17 06:00 06/22/17 07:19 - Respiratory Respiratory exam: Present: rhonchi (Bilateral). Absent: wheezes - Cardiovascular Cardiovascular exam: Present: tachycardia. Absent: diastolic murmur, systolic murmur - GI/Abdominal GI/Abdominal exam: Present: hypoactive bowel sounds, soft. Absent: tenderness - VTE Documentation of Mechanical Device: Intermittent pneumatic compression device Consult Discharge Plan - Plan Referrals: Braden Mas MD [Primary Care Provider] - - Attending Attestation I examined this patient and my medical decision-making was reviewed with the Resident Physician. I agree with the documented findings, disposition and treatment plan as described except to the extent set forth below.
--- NOTE | 2017-06-22 09:36 | Discharge Summary ---
Orders not resulted at time of discharge: Pending orders 06/19/17 22:03 Red Blood Cells [BBK] Stat Type and Screen [BBK] Stat 06/20/17 11:12 Culture,Anaerobic [RM] Routine Culture,Body Fluid [RM] Routine 06/20/17 11:25 Sputum Culture [Culture,Sputum with Gram Stain] [RM] Routine 06/20/17 11:50 AFB Culture, Respiratory [TB] Routine AFB Smear [TB] Routine Culture,Respiratory [RM] Routine Fungal Culture [MYC] Routine Gram Stain [RM] Routine 06/20/17 12:08 Cytology [PTH] Routine 06/22/17 06:00 CT chest w/o contrast [CT chest wo con] [CT] Routine 06/22/17 17:00 Vancomycin,Trough Timed 06/23/17 04:00 Magnesium AM 0400 06/28/17 11:15 Arterial Blood Gas DAILY 06/29/17 11:15 Arterial Blood Gas DAILY Date of Encounter: 06/22/17 - Discharge Diagnosis (1) Acute respiratory failure with hypoxia Status: Acute (2) Empyema Status: Acute (3) Hydropneumothorax Status: Acute (4) Hypertension Status: Acute Qualifiers: Hypertension type: essential hypertension Qualified Code(s): I10 - Essential (primary) hypertension (5) DM (diabetes mellitus) Status: Acute Qualifiers: Diabetes mellitus type: type 2 Diabetes mellitus jail insulin use: unspecified jail insulin use status Diabetes mellitus complication status : with other specified complication Qualified Code(s): E11.69 - Type 2 diabetes mellitus with other specified complication (6) Anemia Status: Acute Qualifiers: Anemia type: unspecified type Qualified Code(s): D64.9 - Anemia, unspecified (7) Pneumonia Status: Acute Qualifiers: Pneumonia type: due to unspecified organism Laterality: right Lung location: lower lobe of lung Qualified Code(s): J18.1 - Lobar pneumonia, unspecified organism (8) Sepsis Status: Acute Qualifiers: Sepsis type: sepsis due to unspecified organism Qualified Code(s): A41.9 - Sepsis, unspecified organism (9) DVT prophylaxis Status: Acute - Discharge Medications Home Medications: Aspirin [Lo-Dose Aspirin EC] 81 mg PO DAILY 06/19/17 [History] Lisinopril [Zestril] 40 mg PO DAILY 06/19/17 [History] Metformin HCl [Glucophage] 1,000 mg PO DAILY 06/19/17 [History] Naproxen Sodium [Aleve] 440 mg PO DAILY PRN 06/19/17 [History] Simvastatin [Zocor] 20 mg PO DAILY 06/19/17 [History] Ipratropium/Albuterol Neb [Duoneb] 3 ml IH [id number] inhsol 06/22/17 [Rx] Allergies/Adverse Reactions: 3 Allergy/AdvReac Type Severity Reaction Status Date / Time No Known Allergies Allergy Verified 06/19/17 15:03 Labs on day of discharge: Labs from last 24 hours 06/22/17 06/22/17 06/22/17 07:48 06:59 05:57 WBC RBC Hgb Hct MCV MCH MCHC RDW Plt Count MPV Immature Gran % Seg Neutrophils % Lymphocytes % Monocytes % Eosinophils % Basophils % Neutrophils # Lymphocytes # Monocytes # Eosinophils # Basophils # Nucleated RBCs/100 WBC Platelet Estimate Hypochromasia Anisocytosis Microcytosis Sample Site Art Line Art Line ABG pH 7.20 L* 7.17 L* ABG pCO2 73 H* 76 H* ABG pO2 78 L 53 L ABG HCO3 29 H 28 H ABG Total CO2 31 H 30 H ABG O2 Saturation 91 L 76 L ABG Base Excess 0 -1 Sundar Test N/A N/A Respiration Rate 18 20 O2 Delivery Device Adult Vent Adult Vent Blood Gas Modality VC VC Inspired O2 80.0 60.0 Tidal Volume 560 450 PEEP 5 5 Sodium Potassium Chloride Carbon Dioxide BUN Creatinine Est GFR ( Amer) Est GFR (Non-Af Amer) BUN/Creatinine Ratio Glucose POC Glucose 164 H Est Mean Plasma Glucose Hemoglobin A1c Calculated Osmolality Lactic Acid Calcium Magnesium 06/22/17 06/22/17 06/22/17 05:06 04:50 04:15 WBC RBC Hgb Hct MCV MCH MCHC RDW Plt Count MPV Immature Gran % Seg Neutrophils % Lymphocytes % Monocytes % Eosinophils % Basophils % Neutrophils # Lymphocytes # Monocytes # Eosinophils # Basophils # Nucleated RBCs/100 WBC Platelet Estimate Hypochromasia Anisocytosis Microcytosis Sample Site Art Line ABG pH 7.14 L* ABG pCO2 83 H* ABG pO2 81 L ABG HCO3 29 H ABG Total CO2 31 H ABG O2 Saturation 91 L ABG Base Excess -1 Sundar Test N/A Respiration Rate 16 O2 Delivery Device Adult Vent Blood Gas Modality VC Inspired O2 80.0 Tidal Volume 450 PEEP 5 Sodium Potassium Chloride Carbon Dioxide BUN Creatinine Est GFR ( Amer) Est GFR (Non-Af Amer) BUN/Creatinine Ratio Glucose POC Glucose Est Mean Plasma Glucose 166 Hemoglobin A1c 7.4 H Calculated Osmolality Lactic Acid 1.0 Calcium Magnesium 06/22/17 06/22/17 06/22/17 04:15 04:15 00:06 WBC 31.7 H* D RBC 2.81 L Hgb 8.0 L Hct 26.5 L MCV 94.3 MCH 28.5 MCHC 30.2 L RDW 17.0 H Plt Count 377 MPV 8.2 L Immature Gran % 3.6 Seg Neutrophils % 85.1 Lymphocytes % 4.6 Monocytes % 5.8 Eosinophils % 0.6 Basophils % 0.3 Neutrophils # 27.0 H Lymphocytes # 1.5 Monocytes # 1.8 H Eosinophils # 0.2 Basophils # 0.1 Nucleated RBCs/100 WBC 0.1 H Platelet Estimate Normal Hypochromasia Present A Anisocytosis 1+ A Microcytosis Present A Sample Site ABG pH ABG pCO2 ABG pO2 ABG HCO3 ABG Total CO2 ABG O2 Saturation ABG Base Excess Sundar Test Respiration Rate O2 Delivery Device Blood Gas Modality Inspired O2 Tidal Volume PEEP Sodium 137 Potassium 5.0 Chloride 107 Carbon Dioxide 23 BUN 14 Creatinine 0.52 L Est GFR ( Amer) > 60 Est GFR (Non-Af Amer) > 60 BUN/Creatinine Ratio 27 H Glucose 179 H POC Glucose 133 H Est Mean Plasma Glucose Hemoglobin A1c Calculated Osmolality 289 Lactic Acid Calcium 8.8 Magnesium 1.8 06/21/17 06/21/17 15:44 11:18 WBC RBC Hgb Hct MCV MCH MCHC RDW Plt Count MPV Immature Gran % Seg Neutrophils % Lymphocytes % Monocytes % Eosinophils % Basophils % Neutrophils # Lymphocytes # Monocytes # Eosinophils # Basophils # Nucleated RBCs/100 WBC Platelet Estimate Hypochromasia Anisocytosis Microcytosis Sample Site ABG pH ABG pCO2 ABG pO2 ABG HCO3 ABG Total CO2 ABG O2 Saturation ABG Base Excess Sundar Test Respiration Rate O2 Delivery Device Blood Gas Modality Inspired O2 Tidal Volume PEEP Sodium Potassium Chloride Carbon Dioxide BUN Creatinine Est GFR ( Amer) Est GFR (Non-Af Amer) BUN/Creatinine Ratio Glucose POC Glucose 121 H 108 H Est Mean Plasma Glucose Hemoglobin A1c Calculated Osmolality Lactic Acid Calcium Magnesium Preliminary micro results at discharge 06/20/17 11:12 Body Fluid Culture - Preliminary Other-Specify in Comments 06/20/17 11:50 Respiratory Culture - Preliminary Right Lower Lobe Lung No growth. - Impressions ITS Impressions Chest X-Ray 06/20/17 11:10 IMPRESSION: 1. Interval placement of an endotracheal tube, in satisfactory position. 2. No radiographic evidence of an orogastric tube. 3. Interval placement of a right-sided chest tube, with tip overlying the medial mid right lung space, with a small right pneumothorax evident. 4. No significant change in appearance of widespread airspace opacity throughout the right lung, likely a combination of pneumonia and pulmonary edema. 5. New mild interstitial pulmonary edema. 6. Interval development of curvilinear left basilar airspace opacity, likely atelectasis. D/ / 06/20/2017 12:21:43 Percy Borja MD / ciro Interpreting Provider: Percy Borja MD X-Ray 06/20/17 11:11 IMPRESSION: 1. Interval placement of an endotracheal tube, in satisfactory position. 2. No radiographic evidence of an orogastric tube. 3. Interval placement of a right-sided chest tube, with tip overlying the medial mid right lung space, with a small right pneumothorax evident. 4. No significant change in appearance of widespread airspace opacity throughout the right lung, likely a combination of pneumonia and pulmonary edema. 5. New mild interstitial pulmonary edema. 6. Interval development of curvilinear left basilar airspace opacity, likely atelectasis. D/ / 06/20/2017 12:21:43 Percy Borja MD / eartimi Interpreting Provider: Percy Borja MD X-Ray 06/20/17 19:35 IMPRESSION: 1. Enteric tube tip at the level of the GE junction. Recommend advancement by approximately 15 cm. D/ / Ritchie Arce MD / Ritchie Arce MD Interpreting Provider: Ritchie Arce MD X-Ray 06/20/17 21:14 IMPRESSION: Tip of the orogastric tube is in the expected location, superimposed over the gastric fundus. D/ / Abdirizak Flower MD / Abdirizak Flower MD Interpreting Provider: Abdirizak Flower MD Chest X-Ray 06/21/17 06:00 IMPRESSION: 1. Postsurgical changes in the right chest. There is a probable tiny right pneumothorax in the right lung base. 2. Increasing airspace opacities within the left lung. D/ / 06/21/2017 07:49:58 Christa Nelson MD / [facility] Interpreting Provider: Christa Nelson MD Chest X-Ray 06/22/17 06:00 IMPRESSION: 1. Postsurgical changes in the right chest are again identified with persistent lucency in the lung base likely reflecting a pneumothorax. 2. Increasing airspace opacities in the left lung. D/ / 06/22/2017 07:48:19 [facility] Provider: Christa Nelson MD Date of admission: 06/19/17 15:21 Primary care physician: Braden Mas MD Consults: 06/20/17 11:56 Consult to Pulmonology [CONS] Routine Consulting Provider: Pulm Crit Care & Sleep Ban Reason for Consult: Bronchoscopy for pulmonary toilet Time Notified: 11:15 Call Completed: Yes 06/21/17 07:58 Consult to Infectious Diseases [CONS] Routine Consulting Provider: Infectious Disease Ban Reason for Consult: necrotizing PNA Call Completed: Yes - Patient Status Disposition: Transfer Critical Access Hosp Condition: Critical Functional capacity at discharge: bed bound Overall status at discharge: patient is not back to baseline - Discharge Instructions Follow Up With: Braden Mas MD [Primary Care Provider] - - Diet and Activity Diet: other (npo) - Hospital Course Hospital course: Mr. Chaudhry is a 57 year old male - Time Spent with Patient Total time spent providing and/or coordinating discharge services: Physical Examination Vital Signs: Vital Signs, Last 4 Hours Temp Pulse Resp BP Pulse Ox 06/22/17 09:10 20 87 06/22/17 07:43 100 F H 06/22/17 07:19 18 100 06/22/17 06:00 129 22 87/45 93 - VTE Documentation of Mechanical Device: Intermittent pneumatic compression device
--- NOTE | 2017-06-22 09:46 | Pulmonology Progress Note ---
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 longterm insulin use status Diabetes mellitus complication status : with other specified complication Qualified Code(s): E11.69 - Type 2 diabetes mellitus with other specified complication (6) Anemia Current Visit: Yes Status: Acute Qualifiers: Anemia type: unspecified type Qualified Code(s): D64.9 - Anemia, unspecified (7) Pneumonia Current Visit: Yes Status: Acute Qualifiers: Pneumonia type: due to unspecified organism Laterality: right Lung location: lower lobe of lung Qualified Code(s): J18.1 - Lobar pneumonia, unspecified organism (8) Sepsis Current Visit: Yes Status: Acute Qualifiers: Sepsis type: sepsis due to unspecified organism Qualified Code(s): A41.9 - Sepsis, unspecified organism (9) DVT prophylaxis Current Visit: Yes Status: Acute Subjective Principal diagnosis: Acute respiratory failure Objective PUL Vital signs: Last Vital Signs Temp 100 F H 06/22/17 07:43 Pulse 129 06/22/17 06:00 Resp 20 06/22/17 09:10 BP 87/45 06/22/17 06:00 Pulse Ox 87 06/22/17 09:10 Ventilator Settings Ventilator Settings: Ventilator Settings, Last 8 Hours Ventilator Mode VC+ Ventilator Mode VC+ Ventilator Mode VC+ Ventilator Tidal Volume 560 Setting Ventilator Tidal Volume 560 Setting Ventilator Tidal Volume 560 Setting Ventilator Tidal Volume 450 Setting Ventilator Tidal Volume 450 Setting Ventilator Tidal Volume 450 Setting Ventilator Tidal Volume 450 Setting Ventilator Tidal Volume 450 Setting Ventilator Tidal Volume 450 Setting Ventilator Tidal Volume 450 Setting Ventilator Tidal Volume 450 Setting Ventilator Tidal Volume 450 Setting Ventilator Respiratory Rate 20 Setting Ventilator Respiratory Rate 18 Setting Ventilator Respiratory Rate 18 Setting Ventilator Respiratory Rate 20 Setting Ventilator Respiratory Rate 16 Setting Ventilator Respiratory Rate 16 Setting Ventilator Respiratory Rate 16 Setting Ventilator Respiratory Rate 16 Setting Ventilator Respiratory Rate 16 Setting Ventilator Respiratory Rate 16 Setting Ventilator Respiratory Rate 16 Setting Ventilator Respiratory Rate 16 Setting Actual Respiratory Rate 20 Actual Respiratory Rate 18 Actual Respiratory Rate 21 Actual Respiratory Rate 17 Actual Respiratory Rate 17 Actual Respiratory Rate 19 Actual Respiratory Rate 17 Actual Respiratory Rate 20 Actual Respiratory Rate 20 Positive End Expiratory 5 Pressure Positive End Expiratory 5 Pressure Positive End Expiratory 5 Pressure Positive End Expiratory 5 Pressure Positive End Expiratory 5 Pressure Positive End Expiratory 5 Pressure Positive End Expiratory 5 Pressure Positive End Expiratory 5 Pressure Positive End Expiratory 5 Pressure Positive End Expiratory 5 Pressure Positive End Expiratory 5 Pressure Positive End Expiratory 5 Pressure Peak Inspiratory Airway 45 Pressure Peak Inspiratory Airway 34 Pressure Peak Inspiratory Airway 35 Pressure Peak Inspiratory Airway 32 Pressure Peak Inspiratory Airway 33 Pressure Peak Inspiratory Airway 34 Pressure Peak Inspiratory Airway 20 Pressure Peak Inspiratory Airway 18 Pressure Results - Laboratory Findings CBC and BMP: 06/22/17 04:15 06/22/17 04:15 ABG ABG pH 7.20 pH Units (7.32-7.45) L* 06/22/17 07:48 ABG pCO2 73 mmHg (35-45) H* 06/22/17 07:48 ABG pO2 78 mmHg (85-104) L 06/22/17 07:48 ABG O2 Saturation 91 % (95-98) L 06/22/17 07:48 PT/INR, D-dimer PT 13.2 Seconds (9.4-12.1) H 06/20/17 04:11 D-Dimer 2191 ng/mLFEU (0-500) H 06/19/17 11:04 Abnormal lab findings: Abnormal lab results WBC 31.7 K/mcL (4.3-11.1) H* D 06/22/17 04:15 RBC 2.81 M/mcL (4.19-5.50) L 06/22/17 04:15 Hgb 8.0 g/dL (12.9-16.9) L 06/22/17 04:15 Hct 26.5 % (37.5-50.1) L 06/22/17 04:15 MCHC 30.2 g/dL (31.6-35.5) L 06/22/17 04:15 RDW 17.0 % (11.5-14.5) H 06/22/17 04:15 MPV 8.2 fL (9.4-12.4) L 06/22/17 04:15 Band Neutrophils % 48.0 % (0-4) H 06/21/17 04:03 Metamyelocytes % 4.0 % (0) H 06/20/17 12:32 Neutrophils # 27.0 K/mcL (1.6-8.9) H 06/22/17 04:15 Monocytes # 1.8 K/mcL (0.0-1.3) H 06/22/17 04:15 Nucleated RBCs/100 WBC 0.1 /100 WBC (0) H 06/22/17 04:15 Reactive Lymphocytes Present (Not Present) A 06/20/17 04:11 Hypochromasia Present (Not Present) A 06/22/17 04:15 Poikilocytosis 1+ (Not Present) A 06/20/17 12:32 Anisocytosis 1+ (Not Present) A 06/22/17 04:15 Microcytosis Present (Not Present) A 06/22/17 04:15 Helmet Cells Present (Not Present) A 06/20/17 12:32 PT 13.2 Seconds (9.4-12.1) H 06/20/17 04:11 APTT 24.8 Seconds (26.0-36.0) L 06/20/17 04:11 D-Dimer 2191 ng/mLFEU (0-500) H 06/19/17 11:04 ABG pH 7.20 pH Units (7.32-7.45) L* 06/22/17 07:48 ABG pCO2 73 mmHg (35-45) H* 06/22/17 07:48 ABG pO2 78 mmHg (85-104) L 06/22/17 07:48 ABG HCO3 29 mEq/L (21-27) H 06/22/17 07:48 ABG Total CO2 31 mEq/L (20-26) H 06/22/17 07:48 ABG O2 Saturation 91 % (95-98) L 06/22/17 07:48 Creatinine 0.52 mg/dL (0.70-1.30) L 06/22/17 04:15 BUN/Creatinine Ratio 27 (6-26) H 06/22/17 04:15 Glucose 179 mg/dL (70-105) H 06/22/17 04:15 POC Glucose 164 mg/dL (70-99) H 06/22/17 05:57 Hemoglobin A1c 7.4 % (-5.6) H 06/22/17 04:15 Phosphorus 6.9 mg/dL (2.7-4.5) H 06/20/17 12:32 Iron 17 mcg/dL (65-175) L 06/20/17 04:11 % Saturation 7 % (20-55) L 06/20/17 04:11 Transferrin 167 mg/dL (203-362) L 06/20/17 04:11 Ferritin 497 ng/ml (20-250) H 06/20/17 04:11 Total Bilirubin 0.1 mg/dL (0.3-1.0) L 06/20/17 04:11 AST 9 Units/L (13-39) L 06/20/17 04:11 B-Natriuretic Peptide 323 pg/mL (Less than 100) H 06/20/17 04:11 Albumin 2.5 g/dL (3.5-5.7) L 06/20/17 04:11 Globulin 4.6 g/dL (2.4-3.5) H 06/20/17 04:11 Albumin/Globulin Ratio 0.5 (1.1-2.2) L 06/20/17 04:11 HDL Cholesterol 31 mg/dL (40-59) L 06/20/17 04:11 Fluid Appearance Hazy (Clear) A 06/20/17 11:50 Vancomycin Trough 12 mcg/mL (5-10) H 06/21/17 04:03 - Microbiology Findings Microbiology Findings: Microbiology, Last 48 Hours 06/20/17 11:50 Acid Fast Stain - Final Right Lower Lobe Lung 06/20/17 11:12 Body Fluid Culture - Preliminary Other-Specify in Comments 06/20/17 11:50 Gram Stain - Final Right Lower Lobe Lung Respiratory Culture - Preliminary No growth. - Clinical Findings Intake & Output: Intake & Output 06/21/17 06/22/17 06/22/17 23:59 07:59 15:59 Intake Total 2198 / 2198 2725 / 2725 Output Total 975 / 975 815 / 815 Balance 1223 / 1223 1910 / 1910 Weight 78.6 kg - VTE Documentation of Mechanical Device: Intermittent pneumatic compression device Consult Discharge Plan - Plan Referrals: Braden Mas MD [Primary Care Provider] - <Fouladpour,Tra W - Last Filed: 06/22/17 09:50> Date of Encounter: 06/22/17 Objective PUL Vital signs: Last Vital Signs Temp 100 F H 06/22/17 07:43 Pulse 129 06/22/17 06:00 Resp 20 06/22/17 09:10 BP 87/45 06/22/17 06:00 Pulse Ox 87 06/22/17 09:10 Ventilator Settings Ventilator Settings: Ventilator Settings, Last 8 Hours Ventilator Mode VC+ Ventilator Mode VC+ Ventilator Mode VC+ Ventilator Tidal Volume 560 Setting Ventilator Tidal Volume 560 Setting Ventilator Tidal Volume 560 Setting Ventilator Tidal Volume 450 Setting Ventilator Tidal Volume 450 Setting Ventilator Tidal Volume 450 Setting Ventilator Tidal Volume 450 Setting Ventilator Tidal Volume 450 Setting Ventilator Tidal Volume 450 Setting Ventilator Tidal Volume 450 Setting Ventilator Tidal Volume 450 Setting Ventilator Tidal Volume 450 Setting Ventilator Respiratory Rate 20 Setting Ventilator Respiratory Rate 18 Setting Ventilator Respiratory Rate 18 Setting Ventilator Respiratory Rate 20 Setting Ventilator Respiratory Rate 16 Setting Ventilator Respiratory Rate 16 Setting Ventilator Respiratory Rate 16 Setting Ventilator Respiratory Rate 16 Setting Ventilator Respiratory Rate 16 Setting Ventilator Respiratory Rate 16 Setting Ventilator Respiratory Rate 16 Setting Ventilator Respiratory Rate 16 Setting Actual Respiratory Rate 20 Actual Respiratory Rate 18 Actual Respiratory Rate 21 Actual Respiratory Rate 17 Actual Respiratory Rate 17 Actual Respiratory Rate 19 Actual Respiratory Rate 17 Actual Respiratory Rate 20 Actual Respiratory Rate 20 Positive End Expiratory 5 Pressure Positive End Expiratory 5 Pressure Positive End Expiratory 5 Pressure Positive End Expiratory 5 Pressure Positive End Expiratory 5 Pressure Positive End Expiratory 5 Pressure Positive End Expiratory 5 Pressure Positive End Expiratory 5 Pressure Positive End Expiratory 5 Pressure Positive End Expiratory 5 Pressure Positive End Expiratory 5 Pressure Positive End Expiratory 5 Pressure Peak Inspiratory Airway 45 Pressure Peak Inspiratory Airway 34 Pressure Peak Inspiratory Airway 35 Pressure Peak Inspiratory Airway 32 Pressure Peak Inspiratory Airway 33 Pressure Peak Inspiratory Airway 34 Pressure Peak Inspiratory Airway 20 Pressure Peak Inspiratory Airway 18 Pressure Results - Laboratory Findings CBC and BMP: 06/22/17 04:15 06/22/17 04:15 ABG ABG pH 7.20 pH Units (7.32-7.45) L* 06/22/17 07:48 ABG pCO2 73 mmHg (35-45) H* 06/22/17 07:48 ABG pO2 78 mmHg (85-104) L 06/22/17 07:48 ABG O2 Saturation 91 % (95-98) L 06/22/17 07:48 PT/INR, D-dimer PT 13.2 Seconds (9.4-12.1) H 06/20/17 04:11 D-Dimer 2191 ng/mLFEU (0-500) H 06/19/17 11:04 Abnormal lab findings: Abnormal lab results WBC 31.7 K/mcL (4.3-11.1) H* D 06/22/17 04:15 RBC 2.81 M/mcL (4.19-5.50) L 06/22/17 04:15 Hgb 8.0 g/dL (12.9-16.9) L 06/22/17 04:15 Hct 26.5 % (37.5-50.1) L 06/22/17 04:15 MCHC 30.2 g/dL (31.6-35.5) L 06/22/17 04:15 RDW 17.0 % (11.5-14.5) H 06/22/17 04:15 MPV 8.2 fL (9.4-12.4) L 06/22/17 04:15 Band Neutrophils % 48.0 % (0-4) H 06/21/17 04:03 Metamyelocytes % 4.0 % (0) H 06/20/17 12:32 Neutrophils # 27.0 K/mcL (1.6-8.9) H 06/22/17 04:15 Monocytes # 1.8 K/mcL (0.0-1.3) H 06/22/17 04:15 Nucleated RBCs/100 WBC 0.1 /100 WBC (0) H 06/22/17 04:15 Reactive Lymphocytes Present (Not Present) A 06/20/17 04:11 Hypochromasia Present (Not Present) A 06/22/17 04:15 Poikilocytosis 1+ (Not Present) A 06/20/17 12:32 Anisocytosis 1+ (Not Present) A 06/22/17 04:15 Microcytosis Present (Not Present) A 06/22/17 04:15 Helmet Cells Present (Not Present) A 06/20/17 12:32 PT 13.2 Seconds (9.4-12.1) H 06/20/17 04:11 APTT 24.8 Seconds (26.0-36.0) L 06/20/17 04:11 D-Dimer 2191 ng/mLFEU (0-500) H 06/19/17 11:04 ABG pH 7.20 pH Units (7.32-7.45) L* 06/22/17 07:48 ABG pCO2 73 mmHg (35-45) H* 06/22/17 07:48 ABG pO2 78 mmHg (85-104) L 06/22/17 07:48 ABG HCO3 29 mEq/L (21-27) H 06/22/17 07:48 ABG Total CO2 31 mEq/L (20-26) H 06/22/17 07:48 ABG O2 Saturation 91 % (95-98) L 06/22/17 07:48 Creatinine 0.52 mg/dL (0.70-1.30) L 06/22/17 04:15 BUN/Creatinine Ratio 27 (6-26) H 06/22/17 04:15 Glucose 179 mg/dL (70-105) H 06/22/17 04:15 POC Glucose 164 mg/dL (70-99) H 06/22/17 05:57 Hemoglobin A1c 7.4 % (-5.6) H 06/22/17 04:15 Phosphorus 6.9 mg/dL (2.7-4.5) H 06/20/17 12:32 Iron 17 mcg/dL (65-175) L 06/20/17 04:11 % Saturation 7 % (20-55) L 06/20/17 04:11 Transferrin 167 mg/dL (203-362) L 06/20/17 04:11 Ferritin 497 ng/ml (20-250) H 06/20/17 04:11 Total Bilirubin 0.1 mg/dL (0.3-1.0) L 06/20/17 04:11 AST 9 Units/L (13-39) L 06/20/17 04:11 B-Natriuretic Peptide 323 pg/mL (Less than 100) H 06/20/17 04:11 Albumin 2.5 g/dL (3.5-5.7) L 06/20/17 04:11 Globulin 4.6 g/dL (2.4-3.5) H 06/20/17 04:11 Albumin/Globulin Ratio 0.5 (1.1-2.2) L 06/20/17 04:11 HDL Cholesterol 31 mg/dL (40-59) L 06/20/17 04:11 Fluid Appearance Hazy (Clear) A 06/20/17 11:50 Vancomycin Trough 12 mcg/mL (5-10) H 06/21/17 04:03 - Microbiology Findings Microbiology Findings: Microbiology, Last 48 Hours 06/20/17 11:50 Acid Fast Stain - Final Right Lower Lobe Lung 06/20/17 11:12 Body Fluid Culture - Preliminary Other-Specify in Comments 06/20/17 11:50 Gram Stain - Final Right Lower Lobe Lung Respiratory Culture - Preliminary No growth. - Clinical Findings Intake & Output: Intake & Output 06/21/17 06/22/17 06/22/17 23:59 07:59 15:59 Intake Total 2198 / 2198 2725 / 2725 Output Total 975 / 975 815 / 815 Balance 1223 / 1223 1910 / 1910 Weight 78.6 kg - Attending Attestation I examined this patient and my medical decision-making was reviewed with the Resident Physician. I agree with the documented findings, disposition and treatment plan as described except to the extent set forth below. We independently had [id number] contact with the patient I spent 60min of Critical Care time with this patient. It involved decision making of high complexity to assess, manipulate, and support vital organ system failure and/or to prevent further life threatening deterioration of the patient' s condition. The time involved in the performance of separately reportable procedures was not counted toward critical care time. Patient seen and examined at bedside Labs, radiology, chart personally reviewed. Management was reviewed during multidisciplinary critical care rounds. 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 Lines: All lines examined without evidence of infection : Dispo: CODE:
[2017-06-22 10:13] LABS: ABG Base Excess -1 mEq/L (-2 to 3); ABG HCO3 26 mEq/L (21-27); ABG Oxygen Saturation 90 % (95-98); ABG PCO2 54 mmHg (35-45); ABG PH 7.28 pH Units (7.32-7.45); ABG PO2 67 mmHg (85-104); ABG TCO2 27 mEq/L (20-26); Blood Gas Modality ASSIST CONTROL; Blood Gas PEEP 0 cm H2O; Blood Gas Respiration Rate 24; Blood Gas VT 480 cc
--- NOTE | 2017-06-22 10:16 | Anesthesia Progress Note ---
Date of Encounter: 06/22/17 Time of Encounter: 10:14 Anesthesia Note - Note Note: 06/22/17 10:14 pt being transferred to [facility], epidural d/c'd per attending request, tip intact
[2017-06-22 10:18] VITALS: BP 93/46
[2017-06-22] MEDS ORDERED: Pantoprazole 40 MG VIAL IVP ONE (10:40)
--- NOTE | 2017-06-22 10:42 | Discharge Summary ---
<AriPercy brown - Last Filed: 06/22/17 10:44> Orders not resulted at time of discharge: Pending orders 06/19/17 22:03 Red Blood Cells [BBK] Stat Type and Screen [BBK] Stat 06/20/17 11:12 Culture,Anaerobic [RM] Routine Culture,Body Fluid [RM] Routine 06/20/17 11:25 Sputum Culture [Culture,Sputum with Gram Stain] [RM] Routine 06/20/17 11:50 AFB Culture, Respiratory [TB] Routine AFB Smear [TB] Routine Culture,Respiratory [RM] Routine Fungal Culture [MYC] Routine Gram Stain [RM] Routine 06/20/17 12:08 Cytology [PTH] Routine 06/22/17 06:00 CT chest w/o contrast [CT chest wo con] [CT] Routine 06/22/17 17:00 Vancomycin,Trough Timed 06/23/17 04:00 Magnesium AM 0400 06/28/17 11:15 Arterial Blood Gas DAILY 06/29/17 11:15 Arterial Blood Gas DAILY Date of Encounter: 06/22/17 Time of Encounter: 08:00 - Discharge Diagnosis (1) Acute respiratory failure with hypoxia Priority: Primary Status: Acute (2) Empyema Priority: Secondary Status: Acute (3) Hydropneumothorax Priority: Secondary Status: Acute (4) Hypertension Priority: Secondary Status: Acute Qualifiers: Hypertension type: essential hypertension Qualified Code(s): I10 - Essential (primary) hypertension (5) DM (diabetes mellitus) Priority: Secondary Status: Acute Qualifiers: Diabetes mellitus type: type 2 Diabetes mellitus [employer] insulin use: unspecified fpc insulin use status Diabetes mellitus complication status : with other specified complication Qualified Code(s): E11.69 - Type 2 diabetes mellitus with other specified complication (6) Anemia Priority: Secondary Status: Acute Qualifiers: Anemia type: unspecified type Qualified Code(s): D64.9 - Anemia, unspecified (7) Pneumonia Priority: Secondary Status: Acute Qualifiers: Pneumonia type: due to unspecified organism Laterality: right Lung location: lower lobe of lung Qualified Code(s): J18.1 - Lobar pneumonia, unspecified organism (8) Sepsis Priority: Secondary Status: Acute Qualifiers: Sepsis type: sepsis due to unspecified organism Qualified Code(s): A41.9 - Sepsis, unspecified organism (9) DVT prophylaxis Priority: Secondary Status: Acute - Discharge Medications Home Medications: Aspirin [Lo-Dose Aspirin EC] 81 mg PO DAILY 06/19/17 [History] Lisinopril [Zestril] 40 mg PO DAILY 06/19/17 [History] Metformin HCl [Glucophage] 1,000 mg PO DAILY 06/19/17 [History] Naproxen Sodium [Aleve] 440 mg PO DAILY PRN 06/19/17 [History] Simvastatin [Zocor] 20 mg PO DAILY 06/19/17 [History] Ipratropium/Albuterol Neb [Duoneb] 3 ml IH [id number] inhsol 06/22/17 [Rx] Allergies/Adverse Reactions: 3 Allergy/AdvReac Type Severity Reaction Status Date / Time No Known Allergies Allergy Verified 06/19/17 15:03 Labs on day of discharge: Labs from last 24 hours 06/22/17 06/22/17 06/22/17 10:09 07:48 06:59 WBC RBC Hgb Hct MCV MCH MCHC RDW Plt Count MPV Immature Gran % Seg Neutrophils % Lymphocytes % Monocytes % Eosinophils % Basophils % Neutrophils # Lymphocytes # Monocytes # Eosinophils # Basophils # Nucleated RBCs/100 WBC Platelet Estimate Hypochromasia Anisocytosis Microcytosis Sample Site Art Line Art Line ABG pH 7.28 L 7.20 L* 7.17 L* ABG pCO2 54 H 73 H* 76 H* ABG pO2 67 L 78 L 53 L ABG HCO3 26 29 H 28 H ABG Total CO2 27 H 31 H 30 H ABG O2 Saturation 90 L 91 L 76 L ABG Base Excess -1 0 -1 Sundar Test N/A N/A Respiration Rate 24 18 20 O2 Delivery Device Adult Vent Adult Vent Adult Vent Blood Gas Modality ASSIST CONTROL VC VC Inspired O2 70.0 80.0 60.0 Tidal Volume 480 560 450 PEEP 0 5 5 Sodium Potassium Chloride Carbon Dioxide BUN Creatinine Est GFR ( Amer) Est GFR (Non-Af Amer) BUN/Creatinine Ratio Glucose POC Glucose Est Mean Plasma Glucose Hemoglobin A1c Calculated Osmolality Lactic Acid Calcium Magnesium 06/22/17 06/22/17 06/22/17 05:57 05:06 04:50 WBC RBC Hgb Hct MCV MCH MCHC RDW Plt Count MPV Immature Gran % Seg Neutrophils % Lymphocytes % Monocytes % Eosinophils % Basophils % Neutrophils # Lymphocytes # Monocytes # Eosinophils # Basophils # Nucleated RBCs/100 WBC Platelet Estimate Hypochromasia Anisocytosis Microcytosis Sample Site Art Line ABG pH 7.14 L* ABG pCO2 83 H* ABG pO2 81 L ABG HCO3 29 H ABG Total CO2 31 H ABG O2 Saturation 91 L ABG Base Excess -1 Sundar Test N/A Respiration Rate 16 O2 Delivery Device Adult Vent Blood Gas Modality VC Inspired O2 80.0 Tidal Volume 450 PEEP 5 Sodium Potassium Chloride Carbon Dioxide BUN Creatinine Est GFR ( Amer) Est GFR (Non-Af Amer) BUN/Creatinine Ratio Glucose POC Glucose 164 H Est Mean Plasma Glucose Hemoglobin A1c Calculated Osmolality Lactic Acid 1.0 Calcium Magnesium 06/22/17 06/22/17 06/22/17 04:15 04:15 04:15 WBC 31.7 H* D RBC 2.81 L Hgb 8.0 L Hct 26.5 L MCV 94.3 MCH 28.5 MCHC 30.2 L RDW 17.0 H Plt Count 377 MPV 8.2 L Immature Gran % 3.6 Seg Neutrophils % 85.1 Lymphocytes % 4.6 Monocytes % 5.8 Eosinophils % 0.6 Basophils % 0.3 Neutrophils # 27.0 H Lymphocytes # 1.5 Monocytes # 1.8 H Eosinophils # 0.2 Basophils # 0.1 Nucleated RBCs/100 WBC 0.1 H Platelet Estimate Normal Hypochromasia Present A Anisocytosis 1+ A Microcytosis Present A Sample Site ABG pH ABG pCO2 ABG pO2 ABG HCO3 ABG Total CO2 ABG O2 Saturation ABG Base Excess Sundar Test Respiration Rate O2 Delivery Device Blood Gas Modality Inspired O2 Tidal Volume PEEP Sodium 137 Potassium 5.0 Chloride 107 Carbon Dioxide 23 BUN 14 Creatinine 0.52 L Est GFR ( Amer) > 60 Est GFR (Non-Af Amer) > 60 BUN/Creatinine Ratio 27 H Glucose 179 H POC Glucose Est Mean Plasma Glucose 166 Hemoglobin A1c 7.4 H Calculated Osmolality 289 Lactic Acid Calcium 8.8 Magnesium 1.8 06/22/17 06/21/17 06/21/17 00:06 15:44 11:18 WBC RBC Hgb Hct MCV MCH MCHC RDW Plt Count MPV Immature Gran % Seg Neutrophils % Lymphocytes % Monocytes % Eosinophils % Basophils % Neutrophils # Lymphocytes # Monocytes # Eosinophils # Basophils # Nucleated RBCs/100 WBC Platelet Estimate Hypochromasia Anisocytosis Microcytosis Sample Site ABG pH ABG pCO2 ABG pO2 ABG HCO3 ABG Total CO2 ABG O2 Saturation ABG Base Excess Sundar Test Respiration Rate O2 Delivery Device Blood Gas Modality Inspired O2 Tidal Volume PEEP Sodium Potassium Chloride Carbon Dioxide BUN Creatinine Est GFR ( Amer) Est GFR (Non-Af Amer) BUN/Creatinine Ratio Glucose POC Glucose 133 H 121 H 108 H Est Mean Plasma Glucose Hemoglobin A1c Calculated Osmolality Lactic Acid Calcium Magnesium Preliminary micro results at discharge 06/20/17 11:12 Body Fluid Culture - Preliminary Other-Specify in Comments 06/20/17 11:50 Respiratory Culture - Preliminary Right Lower Lobe Lung No growth. - Impressions ITS Impressions Chest X-Ray 06/20/17 11:10 IMPRESSION: 1. Interval placement of an endotracheal tube, in satisfactory position. 2. No radiographic evidence of an orogastric tube. 3. Interval placement of a right-sided chest tube, with tip overlying the medial mid right lung space, with a small right pneumothorax evident. 4. No significant change in appearance of widespread airspace opacity throughout the right lung, likely a combination of pneumonia and pulmonary edema. 5. New mild interstitial pulmonary edema. 6. Interval development of curvilinear left basilar airspace opacity, likely atelectasis. D/ / 06/20/2017 12:21:43 Percy Borja MD / ciro Interpreting Provider: Percy Borja MD X-Ray 06/20/17 11:11 IMPRESSION: 1. Interval placement of an endotracheal tube, in satisfactory position. 2. No radiographic evidence of an orogastric tube. 3. Interval placement of a right-sided chest tube, with tip overlying the medial mid right lung space, with a small right pneumothorax evident. 4. No significant change in appearance of widespread airspace opacity throughout the right lung, likely a combination of pneumonia and pulmonary edema. 5. New mild interstitial pulmonary edema. 6. Interval development of curvilinear left basilar airspace opacity, likely atelectasis. D/ / 06/20/2017 12:21:43 Percy Borja MD / ciro Interpreting Provider: Percy Borja MD X-Ray 06/20/17 19:35 IMPRESSION: 1. Enteric tube tip at the level of the GE junction. Recommend advancement by approximately 15 cm. D/ / Ritchie Arce MD / Ritchie Arce MD Interpreting Provider: Ritchie Arce MD X-Ray 06/20/17 21:14 IMPRESSION: Tip of the orogastric tube is in the expected location, superimposed over the gastric fundus. D/ / Abdirizak Flower MD / Abdirizak Flower MD Interpreting Provider: Abdirizak Flower MD Chest X-Ray 06/21/17 06:00 IMPRESSION: 1. Postsurgical changes in the right chest. There is a probable tiny right pneumothorax in the right lung base. 2. Increasing airspace opacities within the left lung. D/ / 06/21/2017 07:49:58 Christa Nelson MD / darcie Interpreting Provider: Christa Nelson MD Chest X-Ray 06/22/17 06:00 IMPRESSION: 1. Postsurgical changes in the right chest are again identified with persistent lucency in the lung base likely reflecting a pneumothorax. 2. Increasing airspace opacities in the left lung. D/ / 06/22/2017 07:48:19 Christa Nelson MD / [facility] Interpreting Provider: Christa Nelson MD Date of admission: 06/19/17 15:21 Primary care physician: Braden Mas MD Consults: 06/20/17 11:56 Consult to Pulmonology [CONS] Routine Consulting Provider: Pulm Crit [facility] [place] Reason for Consult: Bronchoscopy for pulmonary toilet Time Notified: 11:15 Call Completed: Yes 06/21/17 07:58 Consult to Infectious Diseases [CONS] Routine Consulting Provider: Infectious Disease Ban Reason for Consult: necrotizing PNA Call Completed: Yes Discharging clinician: Percy Odom Anticipated date of discharge: 06/22/17 - Patient Status Disposition: Transfer Critical Access Hosp Condition: Critical Overall status at discharge: patient is not back to baseline - Discharge Instructions Follow Up With: Braden Mas MD [Primary Care Provider] - - Hospital Course Hospital course: Mr. Chaudhry is a 57 year old male with past medical history of diabetes, hypertension, hyperlipidemia. He presented to emergency room with the complaint of shortness of breath the last 2 months. He was seen by his primary care physician a few weeks ago and given an antibiotic course with minimal improvement. Workup in the emergency room was significant for a hemoglobin at 9 which appears to be near baseline, x-ray showing a dense consolidation. CT of the chest was performed and shows a right loculated hydropneumothorax. Cardiothoracic surgery was consulted in the emergency room. Vitals at time of presentation significant for temperature of 101.2, pulse 154, respiratory rate 20, 147/89 blood pressure and was saturating oxygen at 100% on a nonrebreather mask. Labs significant for lactic acid of 2.6. Patient did undergo a right posterolateral thoracotomy with right lower lobe decortication on 06/20/17. Chest tube was placed that time and continues to be in place. He remained intubated following the procedure and has been on ventilator dependent since the procedure. He was started on IV antibiotics including vancomycin and meropenem. He reports he did total of 4 days of vancomycin and was transitioned to Zosyn per infectious disease consultation recommendations and has received total of 2 days of that. White blood cell count did increase with most recent value of 31.7. Follow-up x-rays have shown persistent versus mildly increased pneumothorax with consolidations. Cardiothoracic surgery and pulmonology/critical care feels that at this time, patient would benefit from a transfer to a tertiary care hospital for further evaluation and management. Patient may require a pneumonectomy due to not improving infection. He did have a central venous catheter placed in the right groin prior to transfer due to hypotension in the 80s over 50s. He was accepted in transfer at [facility] and will be transported via [employer]. He remains in critical condition at this time. He is a full code at time of this hospitalization. Microbiology has returned with preliminary no growth and blood cultures 2 on , pleural fluid also no growth on 06/20, grams stain final no growth on 06/20, acid fast stain on 06/20 also negative. - Time Spent with Patient Total time spent providing and/or coordinating discharge services: Physical Examination Vital Signs: Vital Signs, Last 4 Hours Temp Pulse Resp BP Pulse Ox 06/22/17 10:00 115 24 93/46 89 06/22/17 09:10 20 87 06/22/17 09:00 115 24 93/46 89 06/22/17 08:00 123 18 81/40 89 06/22/17 07:43 100 F H 06/22/17 07:19 18 100 06/22/17 07:00 115 24 93/46 89 Gen.: Vitals noted. No acute distress. Intubated and sedated. Morbidly obese. HEENT: PERRL/EOMI, oropharynx clear, Normocephalic, atraumatic, MMM, ET tube in place. Cardiac: RRR, no murmur, +S1/S2 Pulmonary: Diffuse rales present bilaterally. equal chest expansion Abdomen: soft,, BS noted, no guarding, no rebound. Extremities: no BLE edema, nontender calf, no cyanosis or clubbing Neuro: Sedated, pupils reactive, unable to assess further due to sedation. Psych: Unable to assess. - VTE Documentation of Mechanical Device: Intermittent pneumatic compression device <Tra Kim W - Last Filed: 06/22/17 11:21> Orders not resulted at time of discharge: Pending orders 06/19/17 22:03 Red Blood Cells [BBK] Stat Type and Screen [BBK] Stat 06/20/17 11:12 Culture,Anaerobic [RM] Routine Culture,Body Fluid [RM] Routine 06/20/17 11:25 Sputum Culture [Culture,Sputum with Gram Stain] [RM] Routine 06/20/17 11:50 AFB Culture, Respiratory [TB] Routine AFB Smear [TB] Routine Culture,Respiratory [RM] Routine Fungal Culture [MYC] Routine Gram Stain [RM] Routine 06/20/17 12:08 Cytology [PTH] Routine 06/22/17 06:00 CT chest w/o contrast [CT chest wo con] [CT] Routine 06/22/17 17:00 Vancomycin,Trough Timed 06/23/17 04:00 Magnesium AM 0400 06/28/17 11:15 Arterial Blood Gas DAILY 06/29/17 11:15 Arterial Blood Gas DAILY Date of Encounter: 06/22/17 Labs on day of discharge: Labs from last 24 hours 06/22/17 06/22/17 06/22/17 10:09 07:48 06:59 WBC RBC Hgb Hct MCV MCH MCHC RDW Plt Count MPV Immature Gran % Seg Neutrophils % Lymphocytes % Monocytes % Eosinophils % Basophils % Neutrophils # Lymphocytes # Monocytes # Eosinophils # Basophils # Nucleated RBCs/100 WBC Platelet Estimate Hypochromasia Anisocytosis Microcytosis Sample Site Art Line Art Line ABG pH 7.28 L 7.20 L* 7.17 L* ABG pCO2 54 H 73 H* 76 H* ABG pO2 67 L 78 L 53 L ABG HCO3 26 29 H 28 H ABG Total CO2 27 H 31 H 30 H ABG O2 Saturation 90 L 91 L 76 L ABG Base Excess -1 0 -1 Sundar Test N/A N/A Respiration Rate 24 18 20 O2 Delivery Device Adult Vent Adult Vent Adult Vent Blood Gas Modality ASSIST CONTROL VC VC Inspired O2 70.0 80.0 60.0 Tidal Volume 480 560 450 PEEP 0 5 5 Sodium Potassium Chloride Carbon Dioxide BUN Creatinine Est GFR ( Amer) Est GFR (Non-Af Amer) BUN/Creatinine Ratio Glucose POC Glucose Est Mean Plasma Glucose Hemoglobin A1c Calculated Osmolality Lactic Acid Calcium Magnesium 06/22/17 06/22/17 06/22/17 05:57 05:06 04:50 WBC RBC Hgb Hct MCV MCH MCHC RDW Plt Count MPV Immature Gran % Seg Neutrophils % Lymphocytes % Monocytes % Eosinophils % Basophils % Neutrophils # Lymphocytes # Monocytes # Eosinophils # Basophils # Nucleated RBCs/100 WBC Platelet Estimate Hypochromasia Anisocytosis Microcytosis Sample Site Art Line ABG pH 7.14 L* ABG pCO2 83 H* ABG pO2 81 L ABG HCO3 29 H ABG Total CO2 31 H ABG O2 Saturation 91 L ABG Base Excess -1 Sundar Test N/A Respiration Rate 16 O2 Delivery Device Adult Vent Blood Gas Modality VC Inspired O2 80.0 Tidal Volume 450 PEEP 5 Sodium Potassium Chloride Carbon Dioxide BUN Creatinine Est GFR ( Amer) Est GFR (Non-Af Amer) BUN/Creatinine Ratio Glucose POC Glucose 164 H Est Mean Plasma Glucose Hemoglobin A1c Calculated Osmolality Lactic Acid 1.0 Calcium Magnesium 06/22/17 06/22/17 06/22/17 04:15 04:15 04:15 WBC 31.7 H* D RBC 2.81 L Hgb 8.0 L Hct 26.5 L MCV 94.3 MCH 28.5 MCHC 30.2 L RDW 17.0 H Plt Count 377 MPV 8.2 L Immature Gran % 3.6 Seg Neutrophils % 85.1 Lymphocytes % 4.6 Monocytes % 5.8 Eosinophils % 0.6 Basophils % 0.3 Neutrophils # 27.0 H Lymphocytes # 1.5 Monocytes # 1.8 H Eosinophils # 0.2 Basophils # 0.1 Nucleated RBCs/100 WBC 0.1 H Platelet Estimate Normal Hypochromasia Present A Anisocytosis 1+ A Microcytosis Present A Sample Site ABG pH ABG pCO2 ABG pO2 ABG HCO3 ABG Total CO2 ABG O2 Saturation ABG Base Excess Sundar Test Respiration Rate O2 Delivery Device Blood Gas Modality Inspired O2 Tidal Volume PEEP Sodium 137 Potassium 5.0 Chloride 107 Carbon Dioxide 23 BUN 14 Creatinine 0.52 L Est GFR ( Amer) > 60 Est GFR (Non-Af Amer) > 60 BUN/Creatinine Ratio 27 H Glucose 179 H POC Glucose Est Mean Plasma Glucose 166 Hemoglobin A1c 7.4 H Calculated Osmolality 289 Lactic Acid Calcium 8.8 Magnesium 1.8 06/22/17 06/21/17 06/21/17 00:06 15:44 11:18 WBC RBC Hgb Hct MCV MCH MCHC RDW Plt Count MPV Immature Gran % Seg Neutrophils % Lymphocytes % Monocytes % Eosinophils % Basophils % Neutrophils # Lymphocytes # Monocytes # Eosinophils # Basophils # Nucleated RBCs/100 WBC Platelet Estimate Hypochromasia Anisocytosis Microcytosis Sample Site ABG pH ABG pCO2 ABG pO2 ABG HCO3 ABG Total CO2 ABG O2 Saturation ABG Base Excess Sundar Test Respiration Rate O2 Delivery Device Blood Gas Modality Inspired O2 Tidal Volume PEEP Sodium Potassium Chloride Carbon Dioxide BUN Creatinine Est GFR ( Amer) Est GFR (Non-Af Amer) BUN/Creatinine Ratio Glucose POC Glucose 133 H 121 H 108 H Est Mean Plasma Glucose Hemoglobin A1c Calculated Osmolality Lactic Acid Calcium Magnesium Preliminary micro results at discharge 06/20/17 11:12 Body Fluid Culture - Preliminary Other-Specify in Comments 06/20/17 11:50 Respiratory Culture - Preliminary Right Lower Lobe Lung No growth. - Impressions ITS Impressions Chest X-Ray 06/20/17 11:10 IMPRESSION: 1. Interval placement of an endotracheal tube, in satisfactory position. 2. No radiographic evidence of an orogastric tube. 3. Interval placement of a right-sided chest tube, with tip overlying the medial mid right lung space, with a small right pneumothorax evident. 4. No significant change in appearance of widespread airspace opacity throughout the right lung, likely a combination of pneumonia and pulmonary edema. 5. New mild interstitial pulmonary edema. 6. Interval development of curvilinear left basilar airspace opacity, likely atelectasis. D/ / 06/20/2017 12:21:43 Percy Borja MD / ciro Interpreting Provider: Percy Borja MD X-Ray 06/20/17 11:11 IMPRESSION: 1. Interval placement of an endotracheal tube, in satisfactory position. 2. No radiographic evidence of an orogastric tube. 3. Interval placement of a right-sided chest tube, with tip overlying the medial mid right lung space, with a small right pneumothorax evident. 4. No significant change in appearance of widespread airspace opacity throughout the right lung, likely a combination of pneumonia and pulmonary edema. 5. New mild interstitial pulmonary edema. 6. Interval development of curvilinear left basilar airspace opacity, likely atelectasis. D/ / 06/20/2017 12:21:43 Percy Borja MD / ciro Interpreting Provider: Percy Borja MD X-Ray 06/20/17 19:35 IMPRESSION: 1. Enteric tube tip at the level of the GE junction. Recommend advancement by approximately 15 cm. D/ / Ritchie Arce MD / Ritchie Arce MD Interpreting Provider: Ritchie Arce MD X-Ray 06/20/17 21:14 IMPRESSION: Tip of the orogastric tube is in the expected location, superimposed over the gastric fundus. D/ / Abdirizak Flower MD / Abdirizak Flower MD Interpreting Provider: Abdirizak Flower MD Chest X-Ray 06/21/17 06:00 IMPRESSION: 1. Postsurgical changes in the right chest. There is a probable tiny right pneumothorax in the right lung base. 2. Increasing airspace opacities within the left lung. D/ / 06/21/2017 07:49:58 Christa Nelson MD / darcie Interpreting Provider: Christa Nelson MD Chest X-Ray 06/22/17 06:00 IMPRESSION: 1. Postsurgical changes in the right chest are again identified with persistent lucency in the lung base likely reflecting a pneumothorax. 2. Increasing airspace opacities in the left lung. D/ / 06/22/2017 07:48:19 Christa Nelson MD / [facility] Interpreting Provider: Christa Nelson MD Date of admission: 06/19/17 15:21 Primary care physician: Braden Mas MD Consults: 06/20/17 11:56 Consult to Pulmonology [CONS] Routine Consulting Provider: Pulm Crit Care & Sleep [place] Reason for Consult: Bronchoscopy for pulmonary toilet Time Notified: 11:15 Call Completed: Yes 06/21/17 07:58 Consult to Infectious Diseases [CONS] Routine Consulting Provider: Infectious Disease Ban Reason for Consult: necrotizing PNA Call Completed: Yes - Hospital Course Hospital course: Mr. Chaudhry is a 57 year old male - Time Spent with Patient Total time spent providing and/or coordinating discharge services: Greater than 30 minutes Physical Examination Vital Signs: Vital Signs, Last 4 Hours Temp Pulse Resp BP Pulse Ox 06/22/17 10:00 115 24 93/46 89 06/22/17 09:10 20 87 06/22/17 09:00 115 24 93/46 89 05/15/18 08:00 123 18 81/40 89 06/22/17 07:43 100 F H 06/22/17 07:19 18 100 - Attending Attestation I examined this patient and my medical decision-making was reviewed with the Resident Physician. I agree with the documented findings, disposition and treatment plan as described except to the extent set forth below. We independently had [id number] contact with the patient I spent 60min of Critical Care time with this patient. It involved decision making of high complexity to assess, manipulate, and support vital organ system failure and/or to prevent further life threatening deterioration of the patient' s condition. The time involved in the performance of separately reportable procedures was not counted toward critical care time. Patient seen and examined at bedside Labs, radiology, chart personally reviewed. Management was reviewed during multidisciplinary critical care rounds. 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 We have added neuromuscular blockade to decrease ventilator dyssynchrony despite oure efforts patient still has a 40% air leak likely will need definitive surgical intervention or possible valve placement. Furthermore I am also concerned the patient will need definitive surgical resection for infection control. I have discussed the case with the transfer center at [facility] and the patient has been accepted to the medical intensive care unit with surgical consultation with Dr. Nicholas. Cards: Worsening shock which is a manifestation of acidosis and sepsis he has been given volume resuscitation a day in the form of 5% albumin he is now on Levothroid through a placed central venous catheter in the right femoral vein FEN-GI: Okay to continue enteral nutrition per dietary recommendations Renal: Urine output monitored and acceptable ID: Agent with worsening signs of sepsis secondary to necrotizing pneumonia I suspect some spillover into the left lung with worsening chest x-ray today he is on broad-spectrum antibiotics including vancomycin and Zosyn per infectious disease recommendations cultures as far remained negative Heme/Onc: Okay to advance DVT prophylaxis now that spinal epidural is been removed Endo: Glucose Monitored Integ/MSK: Skin Care per routine ICU Nursing Protocol to prevent ulcers. Lines: All lines examined without evidence of infection : Dispo: Transferred [place] [facility] via [facility] CODE: Full code family updated at bedside including his life partner/girlfriend along with the patient's mother they are in agreement with plan of questions answered
--- NOTE | 2017-06-22 11:15 | Cardiothoracic Progress Note ---
Date of Encounter: 06/22/17 Time of Encounter: 07:30 - Assessment and plan (1) Empyema Current Visit: Yes Status: Acute The assessment and plan as outlined above was discussed with the patient and/or family members who expressed understanding and agreement. All questions were answered. The patient is in critical condition. He is becoming difficult to ventilate. He appears septic with a high white blood cell count and hypotension. His prognosis is quite guarded. - Subjective Interval history: The patient is intubated and sedated. Vital Signs, Last 4 Hours Temp Pulse Resp BP Pulse Ox 06/22/17 10:00 115 24 93/46 89 06/22/17 09:10 20 87 06/22/17 09:00 115 24 93/46 89 06/22/17 08:00 123 18 81/40 89 06/22/17 07:43 100 F H 06/22/17 07:19 18 100 Oxgyen Flow Rate Oxygen Flow Rate (LPM) [1155] 50 Oxygen Flow Rate (LPM) [1150] 50 Oxygen Flow Rate (LPM) [1145] 50 Oxygen Flow Rate (LPM) 2 Clinical Data, last 8 Hours Output, Chest Tube Drainage 100 Amount [Right Lateral Chest #1 ] Weight 06/20/17 06/21/17 06/22/17 23:59 23:59 23:59 Weight 77.3 kg 78.6 kg Lungs have decreased breath sounds over the right chest. Scattered rhonchi. His chest tube has minimal drainage, but a large air leak. - Labs 06/22/17 04:15 06/22/17 04:15 Lab Results, Last 24 hours 06/22/17 06/22/17 04:15 04:15 WBC 31.7 H* D Hgb 8.0 L Hct 26.5 L Plt Count 377 Sodium 137 Potassium 5.0 Chloride 107 Carbon Dioxide 23 BUN 14 Creatinine 0.52 L Glucose 179 H Calcium 8.8 Magnesium 1.8 - VTE Documentation of Mechanical Device: Intermittent pneumatic compression device Consult Discharge Plan - Plan Referrals: Braden Mas MD [Primary Care Provider] -
[2017-06-22] MEDS ORDERED: Aminoglycoside Consult 1 EACH MC ONE (11:24)
== END 2017-06-22 11:25 | disposition critical access hospital (66) | DRG 853 ==
LOC: EMEROO 10:27 → 2NNU 15:21 → SUATTDRO 15:21 → 2NNU 16:01 → ICNU 06-20 08:30
PROVIDERS: ADMIT Hospitalist; ATTEND Internal Medicine

== ENCOUNTER 2018-10-08 22:32 | Inpatient (IN) ==
--- NOTE | 2018-10-08 23:39 | Emergency Department Note ---
Disposition Clinical Impression: Pneumonia Qualifiers: Pneumonia type: due to unspecified organism Laterality: right Lung location: unspecified part of lung Qualified Code(s): J18.9 - Pneumonia, unspecified organism Disposition: Admitted As Inpatient Condition: Fair Time of Disposition: 01:12 SOB HPI - General Chief Complaint: ED Shortness of Breath/Dyspnea Stated Complaint: Cough/SoB Time Seen by Provider: 10/08/18 23:38 Source: patient Limitations: no limitations Nursing Notes Reviewed: Yes Vital Signs Reviewed: Yes - History of Present Illness Patient is a 58-year-old male who is presenting with cough. Patient with known history of COPD, empyema requiring intubation secondary to multifocal pneumonia one year ago. Patient states for the past 7-10 days he has been having increased dyspnea, cough with production and sputum. He has had subjective fevers and chills. Patient denies any chest pain, palpitations. Symptoms are worse with exertion. Did call his chief diversity officer requested that he come here for further observation and evaluation secondary to his history. Patient denies any abdominal pain, nausea or vomiting. Denies any urinary symptoms. She does not wear oxygen at home. - Related Data Home Medications Medication Instructions Recorded Confirmed Aspirin [Lo-Dose Aspirin EC] 81 mg PO DAILY 06/19/17 06/19/17 Lisinopril [Zestril] 40 mg PO DAILY 06/19/17 06/19/17 Metformin HCl [Glucophage] 1,000 mg PO DAILY 06/19/17 06/19/17 Naproxen Sodium [Aleve] 440 mg PO DAILY PRN 06/19/17 06/19/17 Simvastatin [Zocor] 20 mg PO DAILY 06/19/17 06/19/17 Previous Rx's Medication Instructions Recorded Ipratropium/Albuterol Neb [Duoneb] 3 ml IH [id number] inhsol 06/22/17 Allergies Allergy/AdvReac Type Severity Reaction Status Date / Time No Known Allergies Allergy Verified 10/08/18 22:48 All systems ED: reviewed and negative except as stated. Review of Systems: As Per HPI Constitutional: Reports: fever, chills ENT ED: Reports: congestion Cardiovascular: Reports: dyspnea on exertion. Denies: chest pain, palpitations, syncope Respiratory: Reports: cough, dyspnea, sputum production. Denies: wheezes, hemoptysis Gastrointestinal: Denies: abdominal pain, nausea, vomiting Genitourinary: Denies: urgency, dysuria Musculoskeletal: Denies: back pain Integumentary: Denies: rash Neurological: Denies: headache, weakness Endocrine: Reports: fatigue Past Medical History - Past Medical History Medical history: Reports: diabetes, hypertension Surgical history: Reports: non-contributory Psychiatric history: Reports: no psych history - Social History Smoking Status: Former smoker Smokeless Tobacco Status: No Alcohol use: Reports: none Drug use: Reports: none Physical Exam - General Limitations: no limitations General appearance: alert, in no apparent distress - Head Head exam: atraumatic, normocephalic, normal inspection - Eye Eye exam: Present: normal appearance, PERRL, EOMI - ENT ENT exam: normal exam, normal oropharynx, mucous membranes moist - Neck Neck exam: Present: normal inspection, full ROM, trachea midline - Chest Chest inspection: Present: normal inspection, symmetric chest wall rise - Respiratory Respiratory exam: Present: prolonged expiratory phase (Prolonged expiratory phase, with decreased breath sounds to the right base, with few crackles and wheezing throughout.) - Cardiovascular Cardiovascular exam: Present: normal rhythm, tachycardia - Abdominal Exam Abdominal exam: Present: soft, Non-Tender. Absent: tenderness, distention, guarding, rebound, rigidity - Extremities Exam Extremities exam: Present: normal inspection, full ROM. Absent: tenderness, pedal edema - Neurological Exam Neurological exam: Present: alert, oriented X3 - Psychiatric Psychiatric exam: Present: normal affect, normal mood - Skin Skin exam: Present: warm, dry, intact, normal color Course Vital Signs Temperature 99.3 F 10/08/18 22:45 Pulse Rate 110 10/08/18 22:45 Respiratory Rate 20 10/08/18 22:45 Blood Pressure 152/85 10/08/18 22:45 O2 Sat by Pulse Oximetry 96 10/08/18 22:45 Temperature 99.3 F 10/08/18 22:45 Pulse Rate 110 10/08/18 22:45 Respiratory Rate 20 10/08/18 22:45 Blood Pressure 152/85 10/08/18 22:45 O2 Sat by Pulse Oximetry 96 10/08/18 22:45 Oxygen Delivery Oxygen Delivery Room Air Shortness of Breath/Dyspnea - MDM Narrative Medical decision making narrative: Patient is a 66-year-old male presenting with cough and shortness of breath. Patient with known history of COPD. On arrival, patient is in no acute distress, however he is conversationally dyspneic not on oxygen. He does have the nasal cannula to his face however is not wearing it. He is satting at 96%. Patient does have significantly decreased breath sounds on the right, apparently this is chronic for him given history of 1 year ago having empyema requiring bronchoscopy and intubation. CBC does show slight leukocytosis, BMP shows hyp erkalemia, patient will be given a DuoNeb 3 for wheezing. EKG shows no acute ischemic changes, no QTC prolongation or QRS increase in duration. Patient will given a liter of fluids, DuoNeb 3. Patient was started on Rocephin and azithromycin for pneumonia that is not on chest x-ray noted as multifocal opacifications to the right lung. Patient will be admitted given significant history and lung capacity/functionality. Patient agrees with disposition and admission at this time. - Medical Records Medical records reviewed: Yes I reviewed the patient's medical records. - Lab Data Lab results reviewed: Yes I reviewed the patient's lab results. Result diagrams: 10/09/18 00:09 10/09/18 00:09 Lab Results 10/09/18 10/09/18 Range/Units 00:09 00:09 WBC 12.3 H (4.3-11.1) K/mcL RBC 3.82 L (4.19-5.50) M/mcL Hgb 10.2 L (12.9-16.9) g/dL Hct 33.0 L (37.5-50.1) % MCV 86.4 (83.0-100.0) fL MCH 26.7 L (28.0-33.3) pg MCHC 30.9 L (31.6-35.5) g/dL RDW 15.7 H (11.5-14.5) % Plt Count 382 (140-400) K/mcL MPV 8.6 L (9.4-12.4) fL Immature Gran % 0.9 (0-4) % Seg Neutrophils % 64.4 % Lymphocytes % 9.6 % Monocytes % 9.7 % Eosinophils % 14.6 % Basophils % 0.8 % Neutrophils # 7.9 (1.6-8.9) K/mcL Lymphocytes # 1.2 (0.6-4.6) K/mcL Monocytes # 1.2 (0.0-1.3) K/mcL Eosinophils # 1.8 H (0.0-0.6) K/mcL Basophils # 0.1 (0.0-0.2) K/mcL Sodium 133 L (136-145) mEq/L Potassium 5.2 H (3.5-5.1) mEq/L Chloride 102 (98-107) mEq/L Carbon Dioxide 22 L (23-29) mEq/L BUN 22 (8-23) mg/dL Creatinine 0.93 (0.70-1.30) mg/dL Est GFR ( Amer) > 60 (> 60) Est GFR (Non-Af Amer) > 60 (> 60) BUN/Creatinine Ratio 24 (6-26) Glucose 119 H (70-105) mg/dL Calculated Osmolality 280 (280-300) Calcium 9.4 (8.6-10.3) mg/dL Troponin I < 0.03 (< 0.04) ng/mL - Radiology Data Radiology results reviewed: Yes I reviewed the patient's radiology results. Chest X-Ray 10/08/18 22:51 IMPRESSION: Multifocal airspace opacity right chest suspicious for pneumonia, likely the innominate atelectasis given the volume loss. D/ / Roe Brown / Roe Brown Interpreting Provider: Roe Brown - EKG Data EKG attestation: Yes I reviewed and interpreted this EKG. EKG results narrative: EKG performed at 23 7 ventricular rate of 104, regular rhythm, normal axis, no segment elevation, depressions, there is slightly elevated T wave in lead V3 and V4, no T-wave inversions. Attestation Statement - Attestation Attestation: I have seen this patient with the resident physician, I have personally evaluated this patient. I had reviewed the chart and document dictation by the resident physician and aM in agreement with the information documented by the resident physician. Please see documentation by the resident physician for complete chart including past medical history, family medical history, review of systems, current history and physical and laboratory and imaging studies. I was present for all procedures, provided direct supervision for all procedures, was present for the entirety of all procedures and provided direct guidance during the procedures. Please see documentation by the resident physician for any procedures performed. I have reviewed all interpretations of EKGs, and reviewed all EKGs performed on patient's as well. I have also reviewed reports of imaging as provided by radiology. Patient presented emergency department with chief complaint of cough shortness of breath and fevers consistent with his history of prior pneumonias, which have required admission to the hospital and even intubation in the past. Vital signs within acceptable limits apart from slight tachycardia. Low-grade temperature elevation of 99.3. Basic laboratory studies showed leukocytosis, mildly elevated potassium of 5.2 but with no EKG changes of hyperkalemia no acute abnormality and EKG apart from sinus tachycardia as interpreted by myself. Chest x-ray showed pneumonia as interpreted by radiology. Patient had blood culture sent IV antibiotics given, IV fluids given and was admitted to the hospital for further evaluation and management.
[2018-10-09 00:23] LABS: Basophils # 0.1 K/mcL (0.0-0.2); Basophils % 0.8 %; Eosinophils # 1.8 K/mcL (0.0-0.6); Eosinophils % 14.6 %; Hemoglobin 10.2 g/dL (12.9-16.9); Immature Granulocytes % 0.9 % (0-4); Lymphocytes # 1.2 K/mcL (0.6-4.6); Lymphocytes % 9.6 %; Mean Corpuscular HGB Conc 30.9 g/dL (31.6-35.5); Mean Corpuscular Hemoglobin 26.7 pg (28.0-33.3); Mean Corpuscular Volume 86.4 fL (83.0-100.0); Mean Platelet Volume 8.6 fL (9.4-12.4); Monocytes # 1.2 K/mcL (0.0-1.3); Monocytes % 9.7 %; Neutrophils # 7.9 K/mcL (1.6-8.9); Platelet Count 382 K/mcL (140-400); Red Blood Count 3.82 M/mcL (4.19-5.50); Red Cell Distribution Width 15.7 % (11.5-14.5); Segmented Neutrophils % 64.4 %; White Blood Count 12.3 K/mcL (4.3-11.1)
[2018-10-09] MEDS ORDERED: Ipratropium/Albuterol Neb 3 ML IH ONE (00:32)
[2018-10-09 00:42] LABS: BUN/Creatinine Ratio 24 (6-26); Blood Urea Nitrogen 22 mg/dL (8-23); Calcium 9.4 mg/dL (8.6-10.3); Carbon Dioxide 22 mEq/L (23-29); Chloride 102 mEq/L (98-107); Glucose 119 mg/dL (70-105); Osmolality,Calculated 280 (280-300); Potassium 5.2 mEq/L (3.5-5.1); Sodium 133 mEq/L (136-145); Troponin I < 0.03 ng/mL (< 0.04); eGFR For African Americans > 60 (> 60); eGFR For Non-African Americans > 60 (> 60)
[2018-10-09] MEDS ORDERED: Azithromycin 500 MG in 0.9 % Sodium Chloride 250 ML IVPB ONE (00:47)
[2018-10-09] MEDS ORDERED: 0.9 % Sodium Chloride 1,000 ML IVC ONE (00:47)
[2018-10-09] MEDS ORDERED: cefTRIAXone 1,000 MG in Water for inj. (sterile) 10 ML IVP ONE (00:47)
[2018-10-09] MEDS ORDERED: Isovue-370 500 ML BOTTLE IVP ONE (02:07)
--- NOTE | 2018-10-09 03:12 | Internal Med History&Physical ---
Date of Encounter: 10/09/18 Time of Encounter: 03:12 Internal Medicine - H&P: HPI Chief complaint: cough Admitted From: Home Plans for Post Hospital Care: Home History of present illness: Abdirizak Chaudhry is a 58 year old man who was admitted 1 year ago with shortness of breath and was subsequently diagnosed with a right loculated hydropneumothorax secondary to empyema and underwent right thoracotomy and lower lobe decortication, remaining ventilated due to persistent respiratory failure. He was then seen to have persistent and increasing pneumothorax with consolidations in a critically ill state so was transferred to [facility] for further care. Over there he underwent further procedures (need to obtain documentation to know what exactly happened) but he had a prolonged hospital course requiring a long course of antibiotics but developed pressure ulcers which persist till today. He says he has been doing well up until this past week when he developed a new onset cough notable for hemoptysis in the morning and foul-smelling colored sputum later in the day. He denies associated fever, chills and pleu ritic chest pain however and says his oxygen levels have remained within normal limits. In the ER he was seen afebrile but tachycardic. Lab work reviewed a leukocyte count of 12.3 and otherwise the rest of his labs were within normal limits. Next ray was done which reported findings of multifocal airspace disease within the right lung with volume loss. He was given ceftriaxone and azithromycin and referred for admission. On my assessment he reported feeling adequate and his only concern was recurrence of pneumonia given what he went through last year. Vitals: Reviewed General: Well-developed white man lying comfortably in bed in no acute distress. Skin: Warm and dry. HEENT: Moist mucous membranes. No conjunctivae pallor. Neck: No lymphadenopathy. No JVD. No carotid bruits. No palpable thyroid. Chest: Diminished thoracic expansion. Abolished breath sounds in the right hemithorax in its inferior half. Heart: Normal S1 & S2; rhythmic. No rubs or murmurs. Abdomen: Non-distended, soft and non-tender to palpation. No peritoneal reaction. Extremities: No lower leg is wrapped in Drake bandage and with padding on his heels for pressure ulcers. Neurological: Awake, alert and oriented to person, place and time. No focal deficits. Psych: Affect appropriate. Assessment/Plan 1. Sepsis seoncdary to pneumonia: As evidenced by tachycardia and leukocytosis with a pulmonary infiltrate and new respiratory symptoms. Given the patients prior complicated pulmonary history requiring surgical instrumentation and reporting having stents placed, would prefer to assume this is a complicated process and will broaden his antimicrobial coverage. It will be beneficial for him to undergo a contrast enhanced CT scan for further evaluation. Records should be obtained from [facility] and his configuration management manager contacted as we cannot determine what changes are new in comparison to what he ended up with last year after his transfer to [facility]. 2. Hemoptysis: Suspect it may be secondary to bronchopneumonic consolidation rather than pulmonary embolism or a vascular lesion. CT scan will be done. Will hold his dual antiplatelet therapy in the interim. 3. Diabetes: Will place on insulin sliding scale. 4. Hypertension: Poorly controlled. On amlodipine. 5. Pressure ulcers: Wound care consult requested. Past Med Surg Social Fam HX - Past Medical History Medical history: diabetes, hypertension Additional medical history: pneumonia Psychiatric history: no psych history - Past Surgical History Surgical History: non-contributory Additional surgical history: Right total hip, Right femur repair. Bilat shoulders - Social History Smoking Status: Former smoker Smokeless Tobacco Status: No Alcohol use: none Drug use: none Internal Medicine - H&P: Meds Aspirin [Lo-Dose Aspirin EC] 81 mg PO DAILY 06/19/17 [History] Lisinopril [Zestril] 40 mg PO DAILY 06/19/17 [History] Metformin HCl [Glucophage] 1,000 mg PO DAILY 06/19/17 [History] Simvastatin [Zocor] 40 mg PO DAILY 06/19/17 [History] Amlodipine Besylate 2.5 mg PO DAILY 10/09/18 [History] Ferrous Gluconate 324 mg PO DAILY 10/09/18 [History] HYDROcodone/Acet 10/325 mg 1 mg PO Q4HR PRN 10/09/18 [History] Metoprolol Tartrate 75 mg PO BID 10/09/18 [History] Plavix 75 mg PO DAILY 10/09/18 [History] Vitamin C 500 mg PO BID 10/09/18 [History] Allergy/AdvReac Type Severity Reaction Status Date / Time No Known Allergies Allergy Verified 10/08/18 22:48 All Systems PM: A 10-system review of systems was performed and is negative for pertinent f indings except as documented above in the HPI. Family history reviewed and found non-contributory. - Constitutional Vitals: Temp Pulse Resp BP Pulse Ox 98.5 F 107 14 156/87 97 10/09/18 02:47 10/09/18 02:47 10/09/18 02:47 10/09/18 02:47 10/09/18 02:47 Exam: . Internal Med - H&P Results - Labs CBC & Chem 7: 10/09/18 00:09 10/09/18 00:09 Labs: Short CBC 10/09/18 Range/Units 00:09 WBC 12.3 H (4.3-11.1) K/mcL Hgb 10.2 L (12.9-16.9) g/dL Hct 33.0 L (37.5-50.1) % Plt Count 382 (140-400) K/mcL Neutrophils # 7.9 (1.6-8.9) K/mcL BMP 10/09/18 00:09 Sodium 133 L Potassium 5.2 H Chloride 102 Carbon Dioxide 22 L BUN 22 Creatinine 0.93 Glucose 119 H Calcium 9.4 Cardiac Enzymes 10/09/18 Range/Units 00:09 Troponin I < 0.03 (< 0.04) ng/mL - Impressions ITS Impressions Chest X-Ray 10/08/18 22:51 IMPRESSION: Multifocal airspace opacity right chest suspicious for pneumonia, likely the innominate atelectasis given the volume loss. D/ / Roe Brown / Roe Brown Interpreting Provider: Roe Brown - Time Spent With Patient Total time spent is greater than 50% in coordination of care (as documented) at patient's floor/unit and/or counseling patient:
[2018-10-09] MEDS ORDERED: Dextrose Gel 15 GM/37.5 ML TUBE PO PRN ×2 (03:30)
[2018-10-09] MEDS ORDERED: *HR* Dextrose 50 % in Water (Syg) 50 ML SYRINGE IVP PRN (03:30)
[2018-10-09] MEDS: *HR* HYDROcodone/Acet 10/325 mg TABLET PO PRN ×5 (03:50→21:35)
[2018-10-09] MEDS: GuaiFENesin/Codeine Oral Soln 5 ML UDC PO PRN ×4 (03:54→23:28)
[2018-10-09] MEDS: 0.9 % Sodium Chloride 1,000 ML IVC SCH ×2 (03:55→10:10)
[2018-10-09] MEDS ORDERED: *HR* Heparin 5,000 UNIT/ML VIAL SQ SCH (06:00)
[2018-10-09] MEDS: Insulin LISPRO 300 UNITS/3 ML VIAL SQ SCH ×4 (08:36→20:02)
[2018-10-09] MEDS: Piperacillin/Tazobactam 3.375 GM in 0.9 % Sodium Chloride Mini Bag 100 ML IVPB SCH ×3 (08:37→23:29)
[2018-10-09] MEDS: amLODIPine 5 MG TABLET PO SCH (08:38)
[2018-10-09] MEDS: Lisinopril 20 MG TABLET PO SCH (08:43)
--- NOTE | 2018-10-09 12:27 | Event Note ---
Date of Encounter: 10/09/18 Time of Encounter: 10:51 Patient was seen and examined earlier this am by hopsitalist services - does not appear to be in any respiratory distress denies any cough at this time-discuss treatment plan with the patient encourage patient to sit up in a chair-also advised if he needs to call to provide a sputum sample patient voices understanding.
[2018-10-10 04:40] LABS: Basophils # 0.1 K/mcL (0.0-0.2); Basophils % 0.5 %; Eosinophils # 1.7 K/mcL (0.0-0.6); Eosinophils % 12.8 %; Hematocrit 31.6 % (37.5-50.1); Hemoglobin 9.8 g/dL (12.9-16.9); Immature Granulocytes % 0.5 % (0-4); Lymphocytes # 0.5 K/mcL (0.6-4.6); Lymphocytes % 3.7 %; Mean Corpuscular Hemoglobin 27.2 pg (28.0-33.3); Mean Corpuscular Volume 87.8 fL (83.0-100.0); Mean Platelet Volume 8.8 fL (9.4-12.4); Monocytes % 7.5 %; Platelet Count 374 K/mcL (140-400); Red Cell Distribution Width 15.7 % (11.5-14.5); White Blood Count 13.3 K/mcL (4.3-11.1)
[2018-10-10 04:58] LABS: BUN/Creatinine Ratio 21 (6-26); Blood Urea Nitrogen 16 mg/dL (8-23); Carbon Dioxide 22 mEq/L (23-29); Chloride 107 mEq/L (98-107); Glucose 117 mg/dL (70-105); Osmolality,Calculated 288 (280-300); Potassium 4.6 mEq/L (3.5-5.1); Sodium 138 mEq/L (136-145); eGFR For African Americans > 60 (> 60); eGFR For Non-African Americans > 60 (> 60)
[2018-10-10] MEDS: GuaiFENesin/Codeine Oral Soln 5 ML UDC PO PRN ×3 (05:39→21:31)
[2018-10-10] MEDS ORDERED: Acetaminophen 325 MG TABLET PO ONE (06:09)
[2018-10-10] MEDS ORDERED: Gabapentin 300 MG CAPSULE PO PRN (07:29)
[2018-10-10] MEDS: *HR* HYDROcodone/Acet 10/325 mg TABLET PO PRN ×2 (08:02→13:37)
[2018-10-10] MEDS: amLODIPine 5 MG TABLET PO SCH (08:02)
[2018-10-10] MEDS: Aspirin Enteric Coated 81 MG Tablet PO SCH (08:02)
[2018-10-10] MEDS: Insulin LISPRO 300 UNITS/3 ML VIAL SQ SCH ×4 (08:03→21:32)
[2018-10-10] MEDS: Piperacillin/Tazobactam 3.375 GM in 0.9 % Sodium Chloride Mini Bag 100 ML IVPB SCH ×2 (08:03→16:06)
--- NOTE | 2018-10-10 10:06 | Internal Med Progress Note ---
Hospitalist Progress Note - Encounter Date of Encounter: 10/10/18 Time of Encounter: 09:55 - Subjective Interval History: Abdirizak Chaudhry is a 58 year old man with Hx of HTN, DM, PVD with stent placement and empyema presented with cough with yellow mucus and fever. WBC was elevated. CT chest showed improved right pleural effusion. MRSA screening was positive. Patient was placed on Zosyn and vancomycin. Pt seen and examined in the room. He reported fever overnight with temp 101, still having cough with yellow mucus. - Exam Vitals: Temp Pulse Resp BP Pulse Ox 100.2 F H 117 16 136/87 93 10/10/18 07:47 10/10/18 07:47 10/10/18 07:47 10/10/18 07:47 10/10/18 07:47 Exam: . - Assessment and Plan (1) Sepsis Current Visit: Yes Status: Acute Assessment and Plan: Patient presented with fever, cough, and low blood pressure. Labs showed elevated WBC. CT of the chest showed right-sided pleural effusion, suspicious for empyema, patient has a history of empyema, status post decortication. MRSA screening was positive. Urine for Legionella was negative. Blood culture pending. We will continue current IV antibiotics with Zosyn and vancomycin. Pending sputum culture. (2) Pneumonia Current Visit: Yes Status: Acute Assessment and Plan: Pneumonia was suspected based on clinical judgment. Pending sputum culture, blood culture obtained. We will continue current IV antibiotics with Zosyn and vancomycin. (3) Empyema Current Visit: Yes Status: Acute Assessment and Plan: Management same as above. (4) Hypertension Current Visit: No Status: Acute Assessment and Plan: BP controlled, continue home medications. (5) DM (diabetes mellitus) Current Visit: No Status: Acute Assessment and Plan: Blood glucose controlled, hold home oral agents, started patient on insulin sliding scale. (6) Anemia Current Visit: No Status: Acute Assessment and Plan: Anemia due to iron deficiency and chronic disease. Patient on iron supplementation. (7) DVT prophylaxis Current Visit: Yes Status: Acute Assessment and Plan: SCDs. - Time Spent with Patient Total time spent is greater than 50% in coordination of care (as documented) at patient's floor/unit and/or counseling patient: Greater than 35 minutes Plan of Care Discussed with: patient Internal Medicine: Result - Labs CBC & Chem 7: 10/10/18 03:46 10/10/18 03:46 Labs: Short CBC 10/10/18 Range/Units 03:46 WBC 13.3 H (4.3-11.1) K/mcL Hgb 9.8 L (12.9-16.9) g/dL Hct 31.6 L (37.5-50.1) % Plt Count 374 (140-400) K/mcL Neutrophils # 10.0 H (1.6-8.9) K/mcL BMP 10/09/18 10/10/18 14:15 03:46 Sodium 138 Potassium 4.9 4.6 Chloride 107 Carbon Dioxide 22 L BUN 16 Creatinine 0.77 Glucose 117 H Calcium 9.0 Consult Discharge Plan - Plan Referrals: Braden Mas MD [Primary Care Provider] - (1) Sepsis Qualifiers: Sepsis type: sepsis due to unspecified organism Sepsis acute organ dysfunction status: unspecified Qualified Code(s): A41.9 - Sepsis, unspecified organism (2) Pneumonia Qualifiers: Pneumonia type: due to unspecified organism Laterality: right Lung location: unspecified part of lung Qualified Code(s): J18.9 - Pneumonia, unspecified organism (4) Hypertension Qualifiers: Hypertension type: essential hypertension Qualified Code(s): I10 - Essential (primary) hypertension (5) DM (diabetes mellitus) Qualifiers: Diabetes mellitus type: type 2 Diabetes mellitus skilled nursing insulin use: unspecified clinic director insulin use status Diabetes mellitus complication status: with other specified complication Qualified Code(s): E11.69 - Type 2 diabetes mellitus with other specified complication (6) Anemia Qualifiers: Anemia type: unspecified type Qualified Code(s): D64.9 - Anemia, unspecified
[2018-10-10] MEDS: Lisinopril 20 MG TABLET PO SCH (11:43)
--- NOTE | 2018-10-10 22:55 | Electrocardiograph Report ---
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
[2018-10-11] MEDS: Piperacillin/Tazobactam 3.375 GM in 0.9 % Sodium Chloride Mini Bag 100 ML IVPB SCH ×4 (00:17→23:03)
[2018-10-11] MEDS: GuaiFENesin/Codeine Oral Soln 5 ML UDC PO PRN ×3 (04:22→23:18)
[2018-10-11 04:36] LABS: Basophils # 0.1 K/mcL (0.0-0.2); Basophils % 0.6 %; Eosinophils # 1.7 K/mcL (0.0-0.6); Eosinophils % 13.7 %; Hematocrit 31.3 % (37.5-50.1); Hemoglobin 9.7 g/dL (12.9-16.9); Immature Granulocytes % 0.4 % (0-4); Lymphocytes # 0.7 K/mcL (0.6-4.6); Lymphocytes % 5.3 %; Mean Corpuscular Hemoglobin 26.7 pg (28.0-33.3); Mean Corpuscular Volume 86.2 fL (83.0-100.0); Mean Platelet Volume 8.4 fL (9.4-12.4); Monocytes # 1.1 K/mcL (0.0-1.3); Monocytes % 8.9 %; Platelet Count 350 K/mcL (140-400); Red Blood Count 3.63 M/mcL (4.19-5.50); Red Cell Distribution Width 15.8 % (11.5-14.5); Segmented Neutrophils % 71.1 %; White Blood Count 12.7 K/mcL (4.3-11.1)
[2018-10-11 04:58] LABS: BUN/Creatinine Ratio 18 (6-26); Blood Urea Nitrogen 14 mg/dL (8-23); Calcium 9.1 mg/dL (8.6-10.3); Carbon Dioxide 23 mEq/L (23-29); Chloride 106 mEq/L (98-107); Glucose 118 mg/dL (70-105); Osmolality,Calculated 290 (280-300); Potassium 4.2 mEq/L (3.5-5.1); Sodium 139 mEq/L (136-145); eGFR For African Americans > 60 (> 60); eGFR For Non-African Americans > 60 (> 60)
[2018-10-11] MEDS: *HR* Heparin 5,000 UNIT/ML VIAL SQ SCH ×2 (05:51→18:27)
[2018-10-11] MEDS: Insulin LISPRO 300 UNITS/3 ML VIAL SQ SCH ×4 (08:16→21:14)
[2018-10-11] MEDS: Aspirin Enteric Coated 81 MG Tablet PO SCH (08:31)
[2018-10-11] MEDS: amLODIPine 5 MG TABLET PO SCH (08:32)
[2018-10-11] MEDS: Lisinopril 20 MG TABLET PO SCH (08:34)
--- NOTE | 2018-10-11 10:07 | Internal Med Progress Note ---
Hospitalist Progress Note - Encounter Date of Encounter: 10/11/18 Time of Encounter: 10:06 - Subjective Interval History: Abdirizak Chaudhry is a 58 year old man with Hx of HTN, DM, PVD with stent placement and empyema presented with cough with yellow mucus and fever. WBC was elevated. CT chest showed improved right pleural effusion. MRSA screening was positive. Patient was placed on Zosyn and vancomycin. Pt seen and examined in the room. He reported absence of fever, cough, chest pain, or shortness of breath overnight. - Exam Vitals: Temp Pulse Resp BP Pulse Ox 98.4 F 85 16 114/67 98 10/11/18 07:29 10/11/18 07:29 10/11/18 07:29 10/11/18 07:29 10/11/18 07:29 Exam: . - Assessment and Plan (1) Sepsis Current Visit: Yes Status: Acute Assessment and Plan: Patient presented with fever, cough, and low blood pressure. Labs showed elevated WBC. CT of the chest showed right-sided pleural effusion, suspicious for empyema, patient has a history of empyema, status post decortication. MRSA screening was positive. Urine for Legionella was negative. Blood culture no growth so far. We will continue current IV antibiotics with Zosyn and vancomycin. Pending sputum culture. ID consult, appreciate help. (2) Pneumonia Current Visit: Yes Status: Acute Assessment and Plan: Pneumonia was suspected based on clinical judgment. WBC slightly elevated, however he has chronic wbc elevation. Blood culture no growth. Sputum culture pending. Procalcitonin was negative. Pending fungal tests results Continue current IV antibiotics with Zosyn and vancomycin. ID consulted, appreciate help. (3) Empyema Current Visit: Yes Status: Acute Assessment and Plan: CTA of chest decrease in overall size of the pleural collection containing air and pleural effusion with some pleural thickening in the right lung base compared to the prior exam. No evidence of pulmonary embolism. chronic atelectasis and scarring in the right lower lobe and right middle lobe. He had both IV abx and surgery last year. CT finding is consistent with chronic change rather than acute. Sputum culture, fungal test, and blood culture pending. Procalcitonin was negative. Awaiting ID input. (4) Hypertension Current Visit: No Status: Acute Assessment and Plan: BP controlled, continue home medications. (5) DM (diabetes mellitus) Current Visit: No Status: Acute Assessment and Plan: Blood glucose controlled, hold home oral agents, continue insulin sliding scale. (6) Anemia Current Visit: No Status: Acute Assessment and Plan: Anemia due to iron deficiency and chronic disease. Patient on iron supplementation. (7) DVT prophylaxis Current Visit: Yes Status: Acute Assessment and Plan: SCDs. - Time Spent with Patient Total time spent is greater than 50% in coordination of care (as documented) at patient's floor/unit and/or counseling patient: Greater than 35 minutes Plan of Care Discussed with: patient Internal Medicine: Result - Labs CBC & Chem 7: 10/11/18 04:20 10/11/18 04:20 Labs: Short CBC 10/11/18 Range/Units 04:20 WBC 12.7 H (4.3-11.1) K/mcL Hgb 9.7 L (12.9-16.9) g/dL Hct 31.3 L (37.5-50.1) % Plt Count 350 (140-400) K/mcL Neutrophils # 9.0 H (1.6-8.9) K/mcL BMP 10/11/18 04:20 Sodium 139 Potassium 4.2 Chloride 106 Carbon Dioxide 23 BUN 14 Creatinine 0.80 Glucose 118 H Calcium 9.1 - Impressions Impressions Chest CTA 10/09/18 02:07 IMPRESSION: Decrease in overall size of the pleural collection containing air and pleural effusion with some pleural thickening in the right lung base compared to the prior exam. No evidence of pulmonary embolism. Chronic atelectasis and scarring in the right lower lobe and right middle lobe. D/ / 10/09/2018 07:55:52 Roe Brown / solomon Interpreting Provider: Roe Brown Consult Discharge Plan - Plan Referrals: Braden Mas MD [Primary Care Provider] - (1) Sepsis Qualifiers: Sepsis type: sepsis due to unspecified organism Sepsis acute organ dysfunction status: unspecified Qualified Code(s): A41.9 - Sepsis, unspecified organism (2) Pneumonia Qualifiers: Pneumonia type: due to unspecified organism Laterality: right Lung location: unspecified part of lung Qualified Code(s): J18.9 - Pneumonia, unspecified organism (4) Hypertension Qualifiers: Hypertension type: essential hypertension Qualified Code(s): I10 - Essential (primary) hypertension (5) DM (diabetes mellitus) Qualifiers: Diabetes mellitus type: type 2 Diabetes 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
--- NOTE | 2018-10-11 12:14 | Infectious Disease Consult ---
Infectious Disease-Consult - Encounter Date/Time Date of Encounter: 10/11/18 Time of Encounter: 12:08 - Data of Consult Patient: new to practice Reason for consult: Empyema Consult date: 10/11/18 Requesting Physician: Mariela Pate CNP Primary Care Provider: Braden Mas MD - HPI HPI: MR. Chaudhry is a 58 year old male with a past medical history of empyema secondary to multifocal PNA José post decortication June 2017, diabetes, hypertension, and COPD. Patient was admitted to the hospital 10/08/18 for pn eumonia. We are consulted 10/11/18 for further workup and treatment recommendations for empyema. Briefly, the patient's a 58-year-old male with past medical history as stated above. Patient was hospitalized last June when he was diagnosed with multifocal pneumonia and empyema. He developed septic shock, hard, and underwent a decortication. He was subsequently transferred to [facility] where he spent an additional week in the hospital with a very large right sided air leak. Status post valve placement x3 to block off entire RLL on 06/23/17. Was discharged to [facility] and had chest tubes removed 07/2017. 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 He has continued to follow with [facility] interventional pulmonology (Dr. Goodson) and was last seen in August 2018. About two weeks ago, the patient noted blood-tinged sputum. He called his stitch burnisher who recommended close monitoring. He had worsening cough and shortness of breath and presented to the ER on the day of admission. Upon arrival to the ER, he had a low-grade temp and was tachycardic. Leukocytosis with neutrophilic predominance. Lactic acid was normal. The chest showed a decreased pleural collection containing air and pleural effusion with some pleural thickening at the right base. Blood cultures were obtained 2 sets are no growth to date. He was started empirically on IV antibiotics and admitted to the hospital for further evaluation. Since admission, the patient has had a positive nasal MRSA screen. She will urinary antigen was negative. Troponin was normal. Lactic acid was normal. Pro-calcitonin was 0.09. Sputum culture is pending, but the Gram stain shows few gram-positive cocci, gram-negative rods, gram-positive rods. Yesterday, he had a MAXIMUM TEMPERATURE of 101. He does continue to have some intermittent tachycardia. His white blood cell count remains elevated at 12.7. Fungal serologies including Aspergillus galactomannan, Fungitell, and Histoplasma Ag are pending. Currently, the patient is on Vanc and Zosyn. We've been asked to evaluate and make further recommendations. During my exam today, the patient endorses the history as stated above. He states he developed a dry persistent cough on the day of admission that made him very short of breath. Denies fevers, chills, or rigors. Denies chest pain. Denies hemoptysis. Denies headache or neck pain. Denies nausea, vomiting, diarrhea, or constipation. Denies abdominal pain or urinary complaints. Denies back, joint, or extremity pain. Reports ulcers to the BLE secondary to PVD and he follows with Dr. Goff at [place]. The patient lives at home with his significant other. Denies tobacco, alcohol, or illicit drug use. States he quit smoking and drinking alcohol just prior to him getting sick last year. Denies any known chronic infectious diseases. States he is disabled/retired from [employer] secondary to I lateral shoulder and right hip surgeries. He denies any recent travel outside the [facility]. - ROS Review of Systems: All systems reviewed and no additional remarkable complaints except as stated. - Results CBC & Chem 7: 10/12/18 08:16 10/12/18 08:16 - Exam Vitals: Temp Pulse Resp BP Pulse Ox 99.0 F 79 16 113/70 96 10/11/18 11:33 10/11/18 11:33 10/11/18 11:33 10/11/18 11:33 10/11/18 11:33 Exam: Head: Atraumatic, normal inspection, normocephalic. Eye: EOMI, PERRLA, no scleral icterus noted. ENT: Mucous membranes moist. No odontogenic infection noted. Neck: Normal inspection, no meningismus. Respiratory: Clear to auscultation. No rales, respiratory distress, rhonchi, or wheezes noted. Cardiovascular: Regular rate and rhythm, S1 and S2 audible. No murmurs, rubs, or gallops. GI: Soft, nondistended, normal bowel sounds. Extremities:No joint swelling, pedal edema, or tenderness noted. Bilateral lower extremity dressings clean, dry, and intact. Back: Normal inspection. No vertebral tenderness noted. Neurological: Alert, oriented 3, no focal deficits. Psychiatric: normal affect, normal mood. Skin: Dry, intact, warm. Normal color. No rashes. Aspirin [Lo-Dose Aspirin EC] 81 mg PO DAILY 06/19/17 [History] Lisinopril [Zestril] 40 mg PO DAILY 06/19/17 [History] Metformin HCl [Glucophage] 1,000 mg PO DAILY 06/19/17 [History] Amlodipine Besylate 2.5 mg PO DAILY 10/09/18 [History] Ascorbic Acid [Vitamin C] 500 mg PO BID 10/09/18 [History] Atorvastatin [Lipitor] 40 mg PO HS 10/09/18 [History] Clopidogrel [Plavix] 75 mg PO DAILY 10/09/18 [History] Ferrous Sulfate 324 mg PO DAILY 10/09/18 [History] Gabapentin [Neurontin] 300 mg PO QID PRN 10/09/18 [History] Hydrocodone/Acetaminophen [[place] 10-325 Tablet] 1 tab PO Q4H PRN 10/09/18 [History] Metoprolol Tartrate 75 mg PO BID 10/09/18 [History] Amoxicillin/Clavulanate [Augmentin] 875 mg PO BIDWM #14 tablet 10/12/18 [Rx] Allergy/AdvReac Type Severity Reaction Status Date / Time No Known Allergies Allergy Verified 10/08/18 22:48 - Assessment and Plan (1) Sepsis Status: Acute The patient had two SIRS criteria on admission. Likely secondary to PNA. WBC remains elevated. Tachycardia improved. Tmax 101. Blood cultures drawn 10/09/18 are NGTD. Qualifiers: Sepsis type: sepsis due to unspecified organism Sepsis acute organ dysfunction status: unspecified Qualified Code(s): A41.9 - Sepsis, unspecified organism SNOMED Code(s): 48337764 (2) Pneumonia Status: Suspected Causative organism: Unclear. CXR showed multifocal airspace opacities in the right chest. Legionella UAT negative. MRSA screen positive. Sputum culture not collected. Currently on Vanc and Zosyn. Qualifiers: Pneumonia type: due to unspecified organism Laterality: right Lung location: unspecified part of lung Qualified Code(s): J18.9 - Pneumonia, unspecified organism SNOMED Code(s): 494627804 (3) Empyema Status: Chronic Diagnosed initially in June 2017. Status post VATs/decortication 06/[address] Turner. Status post RLL valve placement 06/23/17 at [facility]. Saw interventional pulmonology 08/18/18 (Dr. Goodson). Notes reviewed. CT of the chest 10/09/18 showed gas and fluid containing collection in the right pleural space suspicious for empyema with dependent changes and relaxation atelectasis in the right lower lobe. Air in the pleural space with associated airspace disease, pleural thickening, and pleural effusion was present on exam from prior on 06/19/17 but has decreased from that exam. No airspace consolidation noted in the left lung. 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 SNOMED Code(s): 081099469 (4) Open wound of both legs with complication Status: Acute Follows with Dr. Goff at the [facility]. 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 SNOMED Code(s): 703301167 - Recommendations Recommendations: Await sputum culture. Await blood cultures to finalize. Recommend pulmonology to evaluate. Continue Zosyn 3.375 grams IV Q8H for now. Continue Vancomycin IV. Pharmacy to dose. Goal trough ~15. Duration of treatment depends on the clinical picture. Monitor renal function and for drug toxicity and dose-adjust antibiotics. Past Med Surg Social Fam HX - Past Medical History Medical history: diabetes, hypertension Additional medical history: pneumonia Psychiatric history: no psych history - Past Surgical History Surgical History: non-contributory Additional surgical history: Right total hip, Right femur repair. Bilat shoulders, lung surgery - Social History Smoking Status: Former smoker Smokeless Tobacco Status: No Alcohol use: none Drug use: none Consult Discharge Plan - Plan Referrals: Braden Mas MD [Primary Care Provider] - 10/19/18 1:30 pm Prescriptions: Amoxicillin/Clavulanate [Augmentin] 875 mg PO BIDWM #14 tablet - Attending Attestation I have personally performed a face to face evaluation on this patient. I have reviewed and agree with the care plan. History and Exam by me shows: This is an addendum to original report dictated by Luda Mike CNP. Please refer to Luda's note for full details. Agree with above history of present illness, review of system and physical exam findings. Assessment and plan: 1.Sepsis: Patient had 2 SIRS criteria on admission likely secondary to pneumonia 2.HCAP causative organism not clear positive MRSA screen. Abnormal findings on imaging get. Patient tells me that his stitch burnisher from [facility] is aware of these abnormal findings and he instructed anyone to contact him before any procedures done on the patient. 3.Open wound of both legs with complication and history of peripheral vascular disease and dry gangrene and decubitus ulcer on his back 4.Empyema 5.Diabetes mellitus type 2 Recommendations At this point patient is on vancomycin and Zosyn. I recommend pulmonary or cardiothoracic to see the patient and maybe they can discuss with the pulmonary team about [facility]. Patient even told me that if he needs any procedure done he would rather go up to [facility]. Monitor labs and for drug toxicity Duration of treatment depends on the pulmonary evaluation and recommendations. We will continue to follow
[2018-10-11] MEDS: *HR* HYDROcodone/Acet 10/325 mg TABLET PO PRN ×2 (14:06→20:39)
[2018-10-12] MEDS: *HR* HYDROcodone/Acet 10/325 mg TABLET PO PRN ×2 (03:33→10:39)
[2018-10-12] MEDS: GuaiFENesin/Codeine Oral Soln 5 ML UDC PO PRN (05:33)
[2018-10-12] MEDS: *HR* Heparin 5,000 UNIT/ML VIAL SQ SCH (05:34)
[2018-10-12 07:18] VITALS: BP 127/75
[2018-10-12 08:56] LABS: Basophils # 0.1 K/mcL (0.0-0.2); Basophils % 0.8 %; Eosinophils # 1.8 K/mcL (0.0-0.6); Eosinophils % 17.5 %; Hematocrit 28.5 % (37.5-50.1); Immature Granulocytes % 0.4 % (0-4); Lymphocytes # 0.8 K/mcL (0.6-4.6); Lymphocytes % 8.3 %; Mean Corpuscular HGB Conc 31.6 g/dL (31.6-35.5); Mean Corpuscular Volume 85.6 fL (83.0-100.0); Mean Platelet Volume 8.9 fL (9.4-12.4); Monocytes # 1.2 K/mcL (0.0-1.3); Monocytes % 11.8 %; Neutrophils # 6.2 K/mcL (1.6-8.9); Platelet Count 356 K/mcL (140-400); Red Blood Count 3.33 M/mcL (4.19-5.50); Red Cell Distribution Width 15.9 % (11.5-14.5); Segmented Neutrophils % 61.2 %; White Blood Count 10.2 K/mcL (4.3-11.1)
[2018-10-12 10:14] LABS: BUN/Creatinine Ratio 16 (6-26); Blood Urea Nitrogen 15 mg/dL (8-23); eGFR For African Americans > 60 (> 60); eGFR For Non-African Americans > 60 (> 60)
[2018-10-12] MEDS: Lisinopril 20 MG TABLET PO SCH (10:25)
[2018-10-12] MEDS: Aspirin Enteric Coated 81 MG Tablet PO SCH (10:26)
[2018-10-12] MEDS: Piperacillin/Tazobactam 3.375 GM in 0.9 % Sodium Chloride Mini Bag 100 ML IVPB SCH (10:26)
[2018-10-12] MEDS: amLODIPine 5 MG TABLET PO SCH (10:26)
[2018-10-12] MEDS: Insulin LISPRO 300 UNITS/3 ML VIAL SQ SCH ×2 (10:27→13:04)
--- NOTE | 2018-10-12 11:01 | Discharge Summary ---
- NOTES TO OUTPATIENT PROVIDER Notes to Outpatient Provider: f/u with PCP within 2 weeks. F/u with pulm within 2 weeks. Orders not resulted at time of discharge: Pending orders 10/09/18 01:27 Culture,Blood [BC] Stat 10/09/18 10:49 Sputum Culture [Culture,Sputum with Gram Stain] [RM] Routine 10/11/18 04:20 Aspergillus galactomannan Ag AM 0400 Fungitell (1,3)-uvch-[id number]-Smgwds AM 0400 10/12/18 04:45 Histoplasma galactomannan,Ur AM 0400 Date of Encounter: 10/12/18 Time of Encounter: 10:59 - Discharge Diagnosis (1) Sepsis Priority: Primary Status: Acute Qualifiers: Sepsis type: sepsis due to unspecified organism Sepsis acute organ dysfunction status: unspecified Qualified Code(s): A41.9 - Sepsis, unspecified organism (2) Pneumonia Priority: Primary Status: Suspected Qualifiers: Pneumonia type: due to unspecified organism Laterality: right Lung location: unspecified part of lung Qualified Code(s): J18.9 - Pneumonia, unspecified organism (3) Empyema Priority: Secondary Status: Chronic (4) Hypertension Priority: Secondary Status: Chronic Qualifiers: Hypertension type: essential hypertension Qualified Code(s): I10 - Essential (primary) hypertension (5) DM (diabetes mellitus) Priority: Secondary Status: Chronic Qualifiers: Diabetes mellitus type: type 2 Diabetes mellitus mcfp insulin use: unspecified mcfp insulin use status Diabetes mellitus complication status: with other specified complication Qualified Code(s): E11.69 - Type 2 diabetes mellitus with other specified complication (6) Anemia Priority: Secondary Status: Chronic Qualifiers: Anemia type: unspecified type Qualified Code(s): D64.9 - Anemia, unspecified (7) DVT prophylaxis Priority: Primary Status: Acute Hospital course: Abdirizak Chaudhry is a 58 year old man who was admitted 1 year ago with shortness of breath and was subsequently diagnosed with a right loculated hydropneumothorax secondary to empyema and underwent right thoracotomy and lower lobe decortication. He was then seen to have persistent and increasing pneumothorax with consolidations in a critically ill state so was transferred to [facility] for further care. Over there he underwent further procedures, he had a prolonged hospital course requiring a long course of antibiotics but developed pressure ulcers which persist till today. He says he has been doing well up until this past week when he developed a new onset cough notable for hemoptysis in the morning and foul-smelling colored sputum later in the day. He denies associated fever, chills and pleuritic chest pain however and says his oxygen levels have remained within normal limits. In the ER he was seen afebrile but tachycardic. Lab work reviewed a leukocyte count of 12.3 and otherwise the rest of his labs were within normal limits. X ray was done which reported findings of multifocal airspace disease within the right lung with volume loss. He was given ceftriaxone and azithromycin and referred for admission. Blood culture and sputum culture were obtained. Pro-calcitonin was normal. IV antibiotics was changed to Zosyn and vancomycin. Fever resolved and blood pressure was normalized on the second hospital day. ID was consulted, recommended pulmonology consultation. On the discharge day, patient is afebrile, vital signs were normal, his WBC has been normalized today, blood culture has no gross for 4 days, sputum culture no growth for 2 days. He has no cough, chest pain, shortness of breath, or sputum production. He is discharged home today, follow-up with PCP and pulmonology as scheduled. He will be taking Augmentin for 7 more days. Discharge discussed with: patient Time spent discussing smoking cessation with patient: more than 10 minutes - Time Spent with Patient Total time spent providing and/or coordinating discharge services: Time spent: Greater than 30 minutes - Discharge Medications Prescriptions: New Amoxicillin/Clavulanate [Augmentin] 875 mg PO BIDWM #14 tablet Continued Metformin HCl [Glucophage] 1,000 mg PO DAILY Lisinopril [Zestril] 40 mg PO DAILY Aspirin [Lo-Dose Aspirin EC] 81 mg PO DAILY Amlodipine Besylate 2.5 mg PO DAILY Ferrous Sulfate 324 mg PO DAILY Clopidogrel [Plavix] 75 mg PO DAILY Metoprolol Tartrate 75 mg PO BID Ascorbic Acid [Vitamin C] 500 mg PO BID Hydrocodone/Acetaminophen [[place] 10-325 Tablet] 1 tab PO Q4H PRN PRN Reason: Mild To Moderate Pain Atorvastatin [Lipitor] 40 mg PO HS Gabapentin [Neurontin] 300 mg PO QID PRN PRN Reason: leg pain Home Medications: Aspirin [Lo-Dose Aspirin EC] 81 mg PO DAILY 06/19/17 [History] Lisinopril [Zestril] 40 mg PO DAILY 06/19/17 [History] Metformin HCl [Glucophage] 1,000 mg PO DAILY 06/19/17 [History] Amlodipine Besylate 2.5 mg PO DAILY 10/09/18 [History] Ascorbic Acid [Vitamin C] 500 mg PO BID 10/09/18 [History] Atorvastatin [Lipitor] 40 mg PO HS 10/09/18 [History] Clopidogrel [Plavix] 75 mg PO DAILY 10/09/18 [History] Ferrous Sulfate 324 mg PO DAILY 10/09/18 [History] Gabapentin [Neurontin] 300 mg PO QID PRN 10/09/18 [History] Hydrocodone/Acetaminophen [[place] 10-325 Tablet] 1 tab PO Q4H PRN 10/09/18 [History] Metoprolol Tartrate 75 mg PO BID 10/09/18 [History] Amoxicillin/Clavulanate [Augmentin] 875 mg PO BIDWM #14 tablet 10/12/18 [Rx] Allergies/Adverse Reactions: Allergy/AdvReac Type Severity Reaction Status Date / Time No Known Allergies Allergy Verified 10/08/18 22:48 Date of admission: 10/09/18 03:00 Primary care physician: Braden Mas MD Consults: 10/09/18 03:26 Consult to Wound Care [CONS] Routine Reason for Consult: Chronic Pressure ulcers Call Completed: No 10/10/18 12:14 Consult to Infectious Diseases [CONS] Routine Consulting Provider: Infectious Disease Ban Reason for Consult: fever and empyema Call Completed: Yes 10/11/18 09:40 Consult to Nurse Navigator [CONS] Routine Comment: PNEUMONIA Anticipated date of discharge: 10/12/18 - Constitutional Vitals: Temp Pulse Resp BP Pulse Ox 98.5 F 76 16 127/75 95 10/12/18 07:17 10/12/18 07:17 10/12/18 07:17 10/12/18 07:17 10/12/18 07:17 General appearance: Present: A&O X 3 Exam: PHYSICAL EXAMINATION: GENERAL APPEARANCE: The patient is alert, oriented and in no acute distress. HEENT: Head is normocephalic. The sinuses are nontender. Pupils are equal and reactive. The nares are patent. Oropharynx clear without lesions. NECK: Supple without lymphadenopathy. HEART: Regular rate and rhythm. LUNGS: No crackles or wheezes are heard. ABDOMEN: Soft, nontender, nondistended with good bowel sounds heard. Inguinal area is normal. EXTREMITIES: Without cyanosis, clubbing or edema. NEUROLOGICAL: Gross nonfocal. SKIN: Warm and dry without any rash. - Patient Status Disposition: Home, Self-Care Condition: Fair Functional capacity at discharge: independent ambulation Overall status at discharge: patient is progressing back to baseline - Discharge Instructions Follow Up With: Braden Mas MD [Primary Care Provider] - - Diet and Activity Activity: increase activity as tolerated Diet: diabetic diet, low fat, low cholesterol, low salt diet
--- NOTE | 2018-10-12 11:03 | Infectious Disease Progress No ---
ID Progress Note Date of Encounter: 10/12/18 Time of Encounter: 11:01 - Subjective Subjective: Patient seen and examined. No acute events overnight. Patient states overall he feels better. States his cough is less frequent and less productive. Denies fevers, chills, rigors. Denies chest pain. States he still gets short of breath when he has a coughing fit. Denies nausea, vomiting, diarrhea, or constipation. Denies abdominal pain or urinary complaints. States appetite is okay. Denies oral thrush or skin rashes. Complains of pain in the bilateral lower extremities at the site of his venous ulcers, left greater than right. - Objective CBC & Chem 7: 10/12/18 08:16 10/12/18 08:16 - Exam Vitals: Temp Pulse Resp BP Pulse Ox 98.5 F 76 16 127/75 95 10/12/18 07:17 10/12/18 07:17 10/12/18 07:17 10/12/18 07:17 10/12/18 07:17 Exam: Head: Atraumatic, normal inspection, normocephalic. Eye: EOMI, PERRLA, no scleral icterus noted. ENT: Mucous membranes moist. No odontogenic infection noted. Neck: Normal inspection, no meningismus. Respiratory: Clear to auscultation, diminished right base. No rales, respiratory distress, rhonchi, or wheezes noted. Cardiovascular: Regular rate and rhythm, S1 and S2 audible. No murmurs, rubs, or gallops. GI: Soft, nondistended, normal bowel sounds. Nontender. Extremities:No joint swelling, pedal edema, or tenderness noted. Bilateral lower extremity dressings clean, dry, and intact. Left thigh dressing clean, dry, and intact. Neurological: Alert, oriented 3, no focal deficits. Psychiatric: normal affect, normal mood. Skin: Dry, intact, warm. Normal color. No rashes - Assessment and Plan (1) Sepsis Current Visit: Yes Status: Acute The patient had two SIRS criteria on admission. Likely secondary to PNA. Improved. Tachycardia resolved. White blood cell count normal. Afebrile overnight. Blood cultures drawn 10/09/18 are NGTD. Qualifiers: Qualified Code(s): A41.9 - Sepsis, unspecified organism SNOMED Code(s): 27532575 (2) Pneumonia Current Visit: Yes Status: Acute Causative organism: Unclear. CXR showed multifocal airspace opacities in the right chest. Legionella UAT negative. MRSA screen positive. Maybe viral since procalcitonin was normal? Sputum culture NURTF. Currently on Vanc and Zosyn. Qualifiers: Qualified Code(s): J18.9 - Pneumonia, unspecified organism SNOMED Code(s): 696814698 (3) Empyema Current Visit: Yes Status: Chronic Diagnosed initially in June 2017. Status post VATs/decortication 06/[address] Turner. Status post RLL valve placement 06/23/17 at [facility]. Saw interventional pulmonology 08/18/18 (Dr. Goodson). Notes reviewed. CT of the chest 10/09/18 showed gas and fluid containing collection in the right pleural space suspicious for empyema with dependent changes and relaxation atelectasis in the right lower lobe. Air in the pleural space with associated airspace disease, pleural thickening, and pleural effusion was present on exam from prior on 06/19/17 but has decreased from that exam. No airspace consolidation noted in the left lung. 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 acute. SNOMED Code(s): 753905299 (4) Open wound of both legs with complication Current Visit: Yes Status: Acute Follows with Dr. Goff at the [facility]. managing wounds. Patient declines removal of dressings and states his wounds are looking good. Qualifiers: Qualified Code(s): S81.801A - Unspecified open wound, right lower leg, initial encounter; S81.802A - Unspecified open wound, left lower leg, initial encounter SNOMED Code(s): 23219004 (5) Hypertension Current Visit: No Status: Chronic Qualifiers: Qualified Code(s): I10 - Essential (primary) hypertension SNOMED Code(s): 58575916 (6) DM (diabetes mellitus) Current Visit: No Status: Chronic Qualifiers: Qualified Code(s): E11.69 - Type 2 diabetes mellitus with other specified complication SNOMED Code(s): 74159978 (7) PVD (peripheral vascular disease) Current Visit: Yes Status: Acute Status post aortic and iliac stent placement at [facility]. SNOMED Code(s): 362391719 - Recommendations Recommendations: Await blood cultures to finalize. Recommend pulmonology to evaluate. Continue Zosyn 3.375 grams IV Q8H for now. Continue Vancomycin IV. Pharmacy to dose. Goal trough ~15. Duration of treatment depends on the clinical picture. Monitor renal function and for drug toxicity and dose-adjust antibiotics. Consult Discharge Plan - Plan Referrals: Braden Mas MD [Primary Care Provider] -
[2018-10-12] MEDS ORDERED: Aminoglycoside Consult 1 EACH MC ONE (13:39)
[2018-10-12 19:16] LABS: A.galactomannan Ag Index 0.02
== END 2018-10-12 13:40 | disposition home or self-care (01) | DRG 871 ==
LOC: 3BNU 22:32 → EMEROOARM 22:32 → 3BNU 10-09 02:25
PROVIDERS: ADMIT Internal Medicine; ATTEND Nurse Practitioner Acute Care

== ENCOUNTER 2021-04-25 23:44 | Inpatient (IN) ==
[2021-04-26 00:41] LABS: Basophils # 0.1 K/mcL (0.0-0.2); Basophils % 0.9 %; Eosinophils # 0.3 K/mcL (0.0-0.6); Eosinophils % 3.7 %; Hematocrit 34.7 % (37.5-50.1); Hemoglobin 11.1 g/dL (12.9-16.9); Immature Granulocytes % 0.3 % (0-4); Lymphocytes # 0.8 K/mcL (0.6-4.6); Lymphocytes % 8.5 %; Mean Corpuscular Hemoglobin 28.2 pg (28.0-33.3); Mean Corpuscular Volume 88.3 fL (83.0-100.0); Mean Platelet Volume 9.2 fL (9.4-12.4); Monocytes # 1.9 K/mcL (0.0-1.3); Monocytes % 20.7 %; Neutrophils # 6.1 K/mcL (1.6-8.9); Platelet Count 384 K/mcL (140-400); Red Blood Count 3.93 M/mcL (4.19-5.50); Red Cell Distribution Width 14.6 % (11.5-14.5); Segmented Neutrophils % 65.9 %; White Blood Count 9.2 K/mcL (4.3-11.1)
[2021-04-26] MEDS ORDERED: Isovue-370 500 ML BOTTLE IVP ONE (00:52)
[2021-04-26 01:41] LABS: Influenza A PCR Negative (Negative); Influenza B PCR Negative (Negative); Resp. Syncytial Virus PCR Negative (Negative)
[2021-04-26 01:42] LABS: SARS-CoV-2 by PCR (In House) Negative (Negative)
[2021-04-26 02:04] LABS: Troponin I 0.03 ng/mL (< 0.04)
[2021-04-26 02:15] LABS: Carbon Dioxide 23 mEq/L (23-29); Chloride 102 mEq/L (98-107); Potassium 4.3 mEq/L (3.5-5.1); Sodium 136 mEq/L (136-145)
[2021-04-26 02:16] LABS: BUN/Creatinine Ratio 17 (6-26); Blood Urea Nitrogen 23 mg/dL (8-23); Calcium 8.4 mg/dL (8.6-10.3); Glucose 176 mg/dL (70-105); Osmolality,Calculated 290 (280-300); eGFR For African Americans > 60 (> 60); eGFR For Non-African Americans 54 (> 60)
[2021-04-26] MEDS ORDERED: cefTRIAXone 1,000 MG in 0.9 % Sodium Chloride 10 ML IVP ONE (03:23)
[2021-04-26] MEDS ORDERED: Azithromycin 500 MG in 0.9 % Sodium Chloride 250 ML IVPB ONE (03:23)
[2021-04-26] MEDS ORDERED: Naloxone 0.4 MG/ML INJ IVP PRN (04:05)
[2021-04-26] MEDS ORDERED: *HR* Promethazine 25 MG/ML VIAL IM PRN (04:05)
[2021-04-26] MEDS ORDERED: Acetaminophen 325 MG TABLET PO PRN (04:05)
[2021-04-26] MEDS ORDERED: Ondansetron 4 MG/2 ML VIAL IVP PRN (04:05)
[2021-04-26] MEDS: Ringers Solution, Lactated 1,000 ML IVC SCH ×2 (06:07→14:35)
[2021-04-26] MEDS: *HR* OxyCODONE Immed Rel 5 MG TABLET PO PRN ×3 (06:34→20:25)
[2021-04-26] MEDS ORDERED: Ipratropium/Albuterol Neb 3 ML IH PRN (07:44)
[2021-04-26] MEDS ORDERED: Dextrose 4 GM Chewable Tablets PO PRN ×2 (07:46)
[2021-04-26] MEDS ORDERED: *HR* Dextrose 50 % in Water (Syg) 50 ML SYRINGE IVP PRN (07:46)
[2021-04-26] MEDS ORDERED: D5% in Water 1,000 ML IVC PRN (07:46)
[2021-04-26] MEDS: Cholecalciferol (D-3) 1,000 UNIT (25MCG) TABLET PO SCH (09:19)
[2021-04-26] MEDS: Cyanocobalamin (B-12) 1,000 MCG TABLET PO SCH (09:19)
[2021-04-26] MEDS: Piperacillin/Tazobactam 3.375 GM in 0.9 % Sodium Chloride Mini Bag 100 ML IVPB SCH ×3 (09:20→23:01)
[2021-04-26] MEDS: Vancomycin 1,500 MG/265 ML IV.SOLN IVPB SCH ×2 (09:20→20:26)
[2021-04-26] MEDS: Insulin LISPRO 300 UNITS/3 ML VIAL SUBQ SCH ×3 (12:18→17:04)
[2021-04-26] MEDS ORDERED: *HR* Labetalol 20 MG/4 ML SYRINGE IVP PRN (16:53)
[2021-04-26] MEDS ORDERED: methylPREDNISolone 125 MG/2 ML VIAL IVP ONE (19:54)
[2021-04-26] MEDS: Melatonin 3 MG TABLET PO PRN (20:26)
[2021-04-26] MEDS: Insulin DETEMIR 100 UNIT/ML X5UNITS SUBQ SCH (20:27)
[2021-04-26] MEDS: Benzonatate 100 MG CAPSULE PO PRN (23:01)
[2021-04-27] MEDS ORDERED: *HR* Labetalol 20 MG/4 ML SYRINGE IVP ONE (02:50)
[2021-04-27 03:28] LABS: Basophils % 0.4 %; Eosinophils % 0.1 %; Hematocrit 36.8 % (37.5-50.1); Hemoglobin 11.4 g/dL (12.9-16.9); Immature Granulocytes % 0.5 % (0-4); Lymphocytes # 0.4 K/mcL (0.6-4.6); Lymphocytes % 3.2 %; Mean Corpuscular Hemoglobin 28.7 pg (28.0-33.3); Mean Corpuscular Volume 92.7 fL (83.0-100.0); Mean Platelet Volume 9.4 fL (9.4-12.4); Monocytes # 0.5 K/mcL (0.0-1.3); Monocytes % 4.4 %; Platelet Count 428 K/mcL (140-400); Red Blood Count 3.97 M/mcL (4.19-5.50); Red Cell Distribution Width 15.1 % (11.5-14.5); Segmented Neutrophils % 91.4 %; White Blood Count 11.1 K/mcL (4.3-11.1)
[2021-04-27 03:32] LABS: Neutrophils # 10.2 K/mcL (1.6-8.9)
[2021-04-27 03:35] LABS: INR 1.2; Prothrombin Time 13.2 Seconds (9.4-12.1)
[2021-04-27 03:45] LABS: Alanine Aminotransferase 19 Units/L (7-52); Albumin 3.1 g/dL (3.5-5.7); Albumin/Globulin Ratio 0.7 (1.1-2.2); Alkaline Phosphatase 78 Units/L (34-104); Aspartate Amino Transferase 17 Units/L (13-39); BUN/Creatinine Ratio 20 (6-26); Bilirubin,Total 0.2 mg/dL (0.3-1.0); Blood Urea Nitrogen 25 mg/dL (8-23); Calcium 8.4 mg/dL (8.6-10.3); Carbon Dioxide 24 mEq/L (23-29); Chloride 102 mEq/L (98-107); Globulin 4.6 g/dL (2.4-3.5); Glucose 413 mg/dL (70-105); Magnesium 1.9 mg/dL (1.6-2.6); Osmolality,Calculated 300 (280-300); Phosphorous 3.6 mg/dL (2.7-4.5); Potassium 5.2 mEq/L (3.5-5.1); Sodium 134 mEq/L (136-145); Total Protein 7.7 g/dL (6.4-8.9); eGFR For African Americans > 60 (> 60); eGFR For Non-African Americans 58 (> 60)
[2021-04-27] MEDS ORDERED: Azithromycin 500 MG in 0.9 % Sodium Chloride 250 ML IVPB SCH (05:00)
[2021-04-27] MEDS: *HR* HYDROcodone/Acet 5/325 mg TABLET PO PRN (05:12)
[2021-04-27] MEDS: Insulin DETEMIR 100 UNIT/ML X5UNITS SUBQ SCH ×2 (09:00→20:10)
[2021-04-27] MEDS: Insulin LISPRO 300 UNITS/3 ML VIAL SUBQ SCH ×5 (09:00→16:53)
[2021-04-27] MEDS: Vancomycin 1,500 MG/265 ML IV.SOLN IVPB SCH ×2 (09:01→20:19)
[2021-04-27] MEDS: Piperacillin/Tazobactam 3.375 GM in 0.9 % Sodium Chloride Mini Bag 100 ML IVPB SCH ×3 (09:03→23:49)
[2021-04-27] MEDS: Aspirin Enteric Coated 81 MG Tablet PO SCH (09:09)
[2021-04-27] MEDS: Magnesium Oxide 400 MG TABLET PO SCH (09:10)
[2021-04-27] MEDS: Cholecalciferol (D-3) 1,000 UNIT (25MCG) TABLET PO SCH (09:10)
[2021-04-27] MEDS: amLODIPine 5 MG TABLET PO SCH (09:10)
[2021-04-27] MEDS: Cyanocobalamin (B-12) 1,000 MCG TABLET PO SCH (09:10)
[2021-04-27] MEDS: clonazePAM 0.5 MG TABLET PO PRN (10:01)
[2021-04-27] MEDS: *HR* OxyCODONE Immed Rel 5 MG TABLET PO PRN ×2 (15:29→22:18)
[2021-04-27] MEDS: Melatonin 3 MG TABLET PO PRN (22:18)
[2021-04-27] MEDS: Benzonatate 100 MG CAPSULE PO PRN (22:21)
[2021-04-28] MEDS: hydrOXYzine pamoate 25 MG CAPSULE PO PRN ×2 (02:00→20:55)
[2021-04-28] MEDS: *HR* OxyCODONE Immed Rel 5 MG TABLET PO PRN ×3 (05:14→20:56)
[2021-04-28] MEDS: *HR* Enoxaparin 40 MG/0.4 ML SYRINGE SQ SCH (05:14)
[2021-04-28 05:18] LABS: BUN/Creatinine Ratio 28 (6-26); Blood Urea Nitrogen 32 mg/dL (8-23); Calcium 8.6 mg/dL (8.6-10.3); Carbon Dioxide 26 mEq/L (23-29); Chloride 106 mEq/L (98-107); Glucose 229 mg/dL (70-105); Osmolality,Calculated 302 (280-300); Phosphorous 3.1 mg/dL (2.7-4.5); Potassium 5.2 mEq/L (3.5-5.1); Sodium 139 mEq/L (136-145); eGFR For African Americans > 60 (> 60); eGFR For Non-African Americans > 60 (> 60)
[2021-04-28] MEDS: Piperacillin/Tazobactam 3.375 GM in 0.9 % Sodium Chloride Mini Bag 100 ML IVPB SCH ×3 (09:12→23:49)
[2021-04-28] MEDS: *HR* HYDROcodone/Acet 5/325 mg TABLET PO PRN ×2 (09:12→16:03)
[2021-04-28] MEDS: Vancomycin 1,500 MG/265 ML IV.SOLN IVPB SCH ×2 (09:14→22:00)
[2021-04-28] MEDS: amLODIPine 5 MG TABLET PO SCH (09:14)
[2021-04-28] MEDS: clonazePAM 0.5 MG TABLET PO PRN (09:14)
[2021-04-28] MEDS: Aspirin Enteric Coated 81 MG Tablet PO SCH (09:15)
[2021-04-28] MEDS: Magnesium Oxide 400 MG TABLET PO SCH (09:15)
[2021-04-28] MEDS: Cyanocobalamin (B-12) 1,000 MCG TABLET PO SCH (09:15)
[2021-04-28] MEDS: Cholecalciferol (D-3) 1,000 UNIT (25MCG) TABLET PO SCH (09:16)
[2021-04-28] MEDS: Insulin DETEMIR 100 UNIT/ML X5UNITS SUBQ SCH ×2 (09:21→20:57)
[2021-04-28] MEDS: Insulin LISPRO 300 UNITS/3 ML VIAL SUBQ SCH ×6 (09:22→16:43)
[2021-04-28] MEDS: Benzonatate 100 MG CAPSULE PO PRN ×2 (12:23→18:35)
[2021-04-28] MEDS: ALPRAZolam 0.5 MG TABLET PO PRN (17:19)
[2021-04-28] MEDS: Melatonin 3 MG TABLET PO PRN (20:56)
[2021-04-29] MEDS: ALPRAZolam 0.5 MG TABLET PO PRN (02:11)
[2021-04-29] MEDS: *HR* HYDROcodone/Acet 5/325 mg TABLET PO PRN ×2 (02:11→08:49)
[2021-04-29 02:57] LABS: BUN/Creatinine Ratio 28 (6-26); Blood Urea Nitrogen 31 mg/dL (8-23); Calcium 8.4 mg/dL (8.6-10.3); Carbon Dioxide 25 mEq/L (23-29); Chloride 107 mEq/L (98-107); Glucose 215 mg/dL (70-105); Magnesium 1.8 mg/dL (1.6-2.6); Osmolality,Calculated 307 (280-300); Phosphorous 3.4 mg/dL (2.7-4.5); Potassium 4.8 mEq/L (3.5-5.1); Sodium 142 mEq/L (136-145); eGFR For African Americans > 60 (> 60); eGFR For Non-African Americans > 60 (> 60)
[2021-04-29] MEDS: *HR* Enoxaparin 40 MG/0.4 ML SYRINGE SQ SCH (05:53)
[2021-04-29] MEDS: *HR* OxyCODONE Immed Rel 5 MG TABLET PO PRN (05:54)
[2021-04-29] MEDS: Cyanocobalamin (B-12) 1,000 MCG TABLET PO SCH (08:49)
[2021-04-29] MEDS: clonazePAM 0.5 MG TABLET PO PRN (08:50)
[2021-04-29] MEDS: Aspirin Enteric Coated 81 MG Tablet PO SCH (08:50)
[2021-04-29] MEDS: Insulin DETEMIR 100 UNIT/ML X5UNITS SUBQ SCH (08:50)
[2021-04-29] MEDS: Cholecalciferol (D-3) 1,000 UNIT (25MCG) TABLET PO SCH (08:50)
[2021-04-29] MEDS: amLODIPine 5 MG TABLET PO SCH (08:50)
[2021-04-29] MEDS: Benzonatate 100 MG CAPSULE PO PRN (08:50)
[2021-04-29] MEDS: Magnesium Oxide 400 MG TABLET PO SCH (08:50)
[2021-04-29] MEDS: Vancomycin 1,500 MG/265 ML IV.SOLN IVPB SCH (08:51)
[2021-04-29] MEDS: Insulin LISPRO 300 UNITS/3 ML VIAL SUBQ SCH ×4 (08:51→12:03)
[2021-04-29] MEDS: Piperacillin/Tazobactam 3.375 GM in 0.9 % Sodium Chloride Mini Bag 100 ML IVPB SCH (08:52)
[2021-04-29 10:43] VITALS: BP 144/89; PULSE 90; TEMP 97.4
[2021-04-29] MEDS ORDERED: clonazePAM 0.5 MG TABLET PO PRN (13:03)
[2021-04-29 13:25] VITALS: O2SAT 94
== END 2021-04-29 15:19 | disposition home or self-care (01) | DRG 871 ==
LOC: EMEROOARM 23:44 → 2NNU 23:44 → SUATTDRO 04-26 06:29 → 2NNU 04-26 07:54 → 2ANU 04-28 16:17
PROVIDERS: ADMIT Internal Medicine; ATTEND Internal Medicine